=== PATIENT | male | born 1955 | race Caucasian/White ===

== ENCOUNTER → 2023-06-17 16:06 | Outpatient (CLI) | payer MEDICARE, SELFPAY ==
--- NOTE | ~2023-06-17 | XR_ITS ---
XR chest 2V DATE: 06/17/2023 16:28 INDICATION: Shortness of breath and cough for 40 days TECHNIQUE: 2 views COMPARISON: 10/29/2016 two-view chest 01/14/2017 CT chest FINDINGS: There is patchy mild infiltrate or atelectasis in the left lower lobe. The remaining lung davis appear clear. No pleural effusion or pulmonary vascular congestion or pneumothorax is detected. Normal heart size. Aortic arch calcification. IMPRESSION: Mild patchy left lower lobe infiltrate and/atelectasis Reviewed, dictated and finalized at location L.
== END ==
PROVIDERS: PCP Physician Assistant; Visit Provider Physician Assistant
DX: R06.02 Shortness of breath (principal); R05.9 Cough, unspecified; R91.8 Other nonspecific abnormal finding of lung field
CPT/HCPCS: 71046

== ENCOUNTER 2023-06-19 14:50 | Inpatient (IN) | payer MEDICARE, SELFPAY ==
--- NOTE | ~2023-06-19 | CT_ITS ---
EXAMINATION: CTA chest PE protocol DATE: 06/19/2023 22:00 INDICATION: Dyspnea. TECHNIQUE: Computed tomography angiography (CTA) of the chest was performed with 100 mL Omnipaque-350 intravenous contrast timed to evaluate the pulmonary arteries. Coronal maximum intensity projection 3D-reconstructions were created by the technologist. Automated exposure control and iterative reconst ruction technique were employed. The dose-length product was 466.50 mGy-cm. COMPARISON: Chest CT 12/2216 FINDINGS: The lungs demonstrate mild atelectasis. There is smooth septal thickening in the lungs, con sistent mild pulmonary edema. There are small pleural effusions. Cardiomegaly is noted. There is a sm all pericardial effusion. There are coronary artery calcifications. There is no pulmonary embolus. Ca lcifications at the juan of the kidneys are likely vascular. There is calcified atherosclerosis of th e aorta and many of the other arteries. There is mild thoracic spondylosis. IMPRESSION: 1. No pulmonary embolus. 2. Mild pulmonary edema. 3. Small pleural effusions. 4. Small pericardial effusion. Reviewed, dictated and finalized at location E.
--- NOTE | ~2023-06-19 | XR_ITS ---
EXAMINATION: XR chest 2V DATE: 06/19/2023 19:45 INDICATION: Dyspnea. TECHNIQUE: Frontal and lateral views of the chest were obtained. COMPARISON: Chest 2 views 04/17/2023, chest CT 01/14/2017 FINDINGS: There are mild airspace opacities in the lower lung zones. There are small pleural effusion s. No pneumothorax. The heart size is normal. IMPRESSION: 1. Stable airspace opacities in the lower lung zones, consistent with atelectasis versus pneumonia. 2. Stable small pleural effusions. Reviewed, dictated and finalized at location E. IMPRESSION: 1. Stable airspace opacities in the lower lung zones, consistent with atelectas is versus pneumonia. 2. Stable small pleural effusions.
[2023-06-19 14:53] VITALS: BP 117/82; PULSE 110; RESP 18; TEMP 36.2; O2SAT 98
--- NOTE | 2023-06-19 19:38 | ECG_ITS ---
Measurements Intervals [place] Rate: 102 P: 57 ID: 140 QRS: 248 QRSD: 125 T: 73 QT: 361 QTc: 471 Interpretive Statements SINUS TACHYCARDIA POSSIBLE LEFT ATRIAL ENLARGEMENT RIGHT AXIS DEVIATION RIGHT BUNDLE BRANCH BLOCK CANNOT RULE OUT SEPTAL INFARCT, AGE INDETERMINATE BASELINE ARTIFACT- I, II, III, AVR, AVL ABNORMAL ECG NO PREVIOUS ECG AVAILABLE FOR COMPARISON Electronically Signed On 06-20-2023 14:43:00 CDT by Kevin Key D.O.
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
[2023-06-19 20:52] LABS: Basophils Percent Auto 0.3 % (0.2-1.2); Eosinophils Absolute Auto 0.1 K/mm3 (0-0.3); Eosinophils Percent Auto 0.5 % (0-4.4); Hematocrit 46.1 % (42.0-52.0); Hemoglobin 14.5 g/dL (14.0-18.0); Immature Granulocyte Absolute 0.03 K/mm3 (0.00-0.031); Immature Granulocyte Percent A 0.3 % (0-0.5); Lymphocytes Absolute Auto 1.83 K/mm3 (0.9-3.2); Lymphocytes Percent Auto 19.1 % (18.3-44.2); Mean Corpuscular HGB Conc 31.5 g/dl (32-36); Mean Corpuscular Hemoglobin 29.9 pg (26-34); Mean Corpuscular Volume 95.1 fl (80-100); Mean Platelet Volume 11.2 fl (7.4-10.4); Monocytes Absolute Auto 0.7 K/mm3 (0.1-0.6); Monocytes Percent Auto 7.2 % (2.6-8.5); Neutrophils Absolute Auto 6.9 K/mm3 (1.3-6.7); Neutrophils Percent Auto 72.6 % (45.5-73.1); Platelet Count Result 255 k/mm3 (150-375); Red Blood Count 4.85 M/mm3 (4.6-6.20); Red Cell Distribution Width 13.9 % (11.5-14.5); White Blood Count 9.6 K/mm3 (4.5-10.0)
[2023-06-19 20:56] LABS: Influenza A QL RT-PCR Negative (Negative); Influenza B QL RT-PCR Negative (Negative); SARS-CoV-2 RNA PCR Negative (Negative)
[2023-06-19 21:03] LABS: INR 1.1; Partial Thromboplastin Time 32.1 SECONDS (22.3-36.8); Prothrombin Time 14.4 Seconds (11.1-14.7)
[2023-06-19 21:08] LABS: Appearance Urine Clear (Clear); Bacteria Urine None Seen /hpf; Bilirubin Urine Negative (Negative); Blood Urine Negative (Negative); Color Urine Dark Yellow (Yellow); Glucose Urine UA Negative (Negative); Ketones Urine Negative (Negative); Leukocyte Esterase Ur Negative LEU/UL (Negative); Mucus Urine Present /lpf; Need Manual Microscopic Reviewed; Nitrate Urine Negative (Negative); Protein Urine 1+ mg/dL (Negative); RBC Urine 0-2 /hpf (0-2); Specific Grav Ur 1.024 (1.001-1.035); Squamous Epithelial Cell Urine None seen /hpf (Few); WBC Urine 0-5 /hpf; pH Urine 5.5 (5.0-9.0)
[2023-06-19 21:10] LABS: Add Urine Microscopic? YES
[2023-06-19 21:10] LABS: D Dimer 0.53 ug/mL (<0.48)
[2023-06-19 21:34] LABS: Alanine Aminotransferase 29 U/L (6-50); Albumin Level 4.5 g/dL (3.5-5.1); Alkaline Phosphatase 93 U/L (38-126); Anion Gap 12 mmol/L (8-16); Aspartate Amino Transferase 33 U/L (17-59); Bilirubin,Total 1.1 mg/dL (0.2-1.3); Blood Urea Nitrogen 10 mg/dL (9-20); Calcium 9.8 mg/dL (8.4-10.2); Carbon Dioxide 26 mmol/L (22-30); Chloride 104 mmol/L (98-107); Estimated CRCL calculation 74 ml/min; Estimated Glomerular Filt Rate > 60; Glucose 119 mg/dL (65-110); Potassium 3.9 mmol/L (3.4-5.0); Sodium 142 mmol/L (137-145)
[2023-06-19 21:46] LABS: NT Pro B Type Natriuretic Pept 7760 pg/mL (19.9-100); Troponin I 0.032 ng/mL (0.000-0.034)
[2023-06-19] MEDS: FUROSEMIDE INJ 40 MG/4 ML VIAL IV PUSH (22:59)
[2023-06-19 23:01] VITALS: BP 106/72; PULSE 104; RESP 15; O2SAT 100
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
[2023-06-19 23:14] LABS: Troponin I 0.026 ng/mL (0.000-0.034)
[2023-06-20] VITALS (9 sets, daily range): BP systolic 103–133; BP diastolic 58–92; PULSE 85–198; RESP 16–20; TEMP 36.3–36.8; O2SAT 98–100; BMI 24.1; BMI 23.4
--- NOTE | 2023-06-20 | ECHO_ITS ---
Patient Info Name: Dre Coates Age: 67 years : 1955 Gender: Male Ht: 67 in Wt: 154 lbs BSA: 1.82 m2 HR: 104 bpm BP: 103 / 67 mmHg Heart Rhythm: Tachycardia Technical Quality: Fair Exam Date: 06/20/2023 10:10 AM Exam Location: [facility] Pulmonary Patient Status: Outpatient Admit Date: 06/19/2023 Staff Ordering Physician: Elodia Ibarra PA-C Diploma Medical Assistant: Irina Rachel RDCS Attending Provider: Yonathan Campos MD Referring Physician: Fred DUKE; Exam Type: CA echo doppler color flow Study Info Indications - new onset CHF Complete two-dimensional, color flow and Doppler transthoracic echocardiogram is performed. Summary 1. Complete two-dimensional, color flow and Doppler transthoracic echocardiogram is performed. 2. Four-chamber cardiac dilation. 3. Severe left ventricular systolic dysfunction with low ejection fraction and stigmata of low cardiac output. 4. Mild mitral regurgitation resulting from annular dilation. 5. No pericardial fluid. Left Ventricle Left ventricular chamber dimension is moderately enlarged. Left ventricular systolic function is severely reduced, estimated at 20-25%. The left ventricular diastolic function is grade I diastolic dysfunction. Right Ventricle Right ventricular chamber dimension is mildly enlarged. Right ventricular systolic function is reduced. Left Atria Left atrial chamber dimension is moderately enlarged. Right Atria Right atrial chamber dimension is moderately enlarged. Aortic Valve The aortic valve is trileaflet. There is mild aortic valve sclerosis. Pulmonic Valve The pulmonic valve is not well visualized. Mitral Valve The mitral valve has normal leaflets. There is trace mitral valve regurgitation. Tricuspid Valve The tricuspid valve leaflets are normal. Pericardium/Pleural The pericardium appears normal. Aorta The aortic root size at the sinus of Valsalva is normal. Left Ventricular Outflow Tract Name Value Normal LVOT 2D LVOT Diameter 1.9 cm LVOT Doppler LVOT Peak Gradient 2 mmHg LVOT Mean Gradient 1 mmHg LVOT VTI 11 cm LVOT VTI/AV VTI Ratio 0.7 LVOT Stroke Volume 30 ml LVOT CO 2.9 l/min LVOT CI 1.6 l/min/m2 Pulmonic Valve Name Value Normal PV Doppler PV Peak Gradient 1 mmHg Mitral Valve Name Value Normal MV Doppler MV Decel Cooper 2,007 cm/s2 MV PHT 17 ms MV Area (PHT) 13.2 cm2 4.0-5.0
--- NOTE | 2023-06-20 02:25 | ADMGEN ---
This patient, Dre Coates, was admitted to Medical Room 253-01. Patient/family oriented to hospital policies and general routines including ID bracelet, bed and alarms, visiting hours, pain management, procedures, bathroom and other care routines, personal items, smoking policy, room service/diet, and visiting hours. Information on how to activate the Rapid Response Team has been discussed. Patient/Family are encouraged to report perceived risks to care and to ask questions if they do not understand what they are told or what they should do.
[2023-06-20 05:26] LABS: Basophils Percent Auto 0.3 % (0.2-1.2); Eosinophils Absolute Auto 0.1 K/mm3 (0-0.3); Eosinophils Percent Auto 0.8 % (0-4.4); Hematocrit 39.1 % (42.0-52.0); Hemoglobin 12.6 g/dL (14.0-18.0); Immature Granulocyte Absolute 0.03 K/mm3 (0.00-0.031); Immature Granulocyte Percent A 0.4 % (0-0.5); Lymphocytes Absolute Auto 1.65 K/mm3 (0.9-3.2); Lymphocytes Percent Auto 21.2 % (18.3-44.2); Mean Corpuscular HGB Conc 32.2 g/dl (32-36); Mean Corpuscular Hemoglobin 30.1 pg (26-34); Mean Corpuscular Volume 93.3 fl (80-100); Mean Platelet Volume 10.7 fl (7.4-10.4); Monocytes Absolute Auto 0.5 K/mm3 (0.1-0.6); Monocytes Percent Auto 6.2 % (2.6-8.5); Neutrophils Absolute Auto 5.5 K/mm3 (1.3-6.7); Neutrophils Percent Auto 71.1 % (45.5-73.1); Platelet Count Result 244 k/mm3 (150-375); Red Blood Count 4.19 M/mm3 (4.6-6.20); Red Cell Distribution Width 13.6 % (11.5-14.5); White Blood Count 7.8 K/mm3 (4.5-10.0)
[2023-06-20 05:42] LABS: Anion Gap 12 mmol/L (8-16); Blood Urea Nitrogen 10 mg/dL (9-20); Calcium 9.1 mg/dL (8.4-10.2); Carbon Dioxide 28 mmol/L (22-30); Chloride 100 mmol/L (98-107); Estimated CRCL calculation 66 ml/min; Estimated Glomerular Filt Rate > 60; Glucose 187 mg/dL (65-110); Potassium 3.5 mmol/L (3.4-5.0); Sodium 140 mmol/L (137-145)
[2023-06-20] MEDS: FUROSEMIDE INJ 40 MG/4 ML VIAL IV PUSH (10:06)
[2023-06-20] MEDS: ATORVASTATIN 40 MG TABLET PO (10:07)
[2023-06-20] MEDS: lisinopriL 10 MG TABLET PO (10:07)
--- NOTE | 2023-06-20 11:46 | ECG_ITS ---
Measurements Intervals [place] Rate: 98 P: 55 OK: 143 QRS: 263 QRSD: 121 T: 80 QT: 392 QTc: 501 Interpretive Statements SINUS RHYTHM RIGHT AXIS DEVIATION RIGHT BUNDLE BRANCH BLOCK ANTEROSEPTAL INFARCT, AGE INDETERMINATE ABNORMAL ECG COMPARISON TO PRIOR ECG 06-19-23 20:53 SINUS RHYTHM NOW PRESENT Electronically Signed On 06-20-2023 14:44:05 CDT by Kevin Key D.O.
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
[2023-06-20 12:40] LABS: Glucose Point of Care 174 mg/dl (65-105)
[2023-06-20] MEDS: METOPROLOL SUCCINATE EXT REL 25 MG TABCR PO (13:28)
--- NOTE | 2023-06-20 14:08 | PM.IMPN ---
Progress Note: A&P Assessment and Plan (1) New onset of congestive heart failure: Code(s): I50.9 - Heart failure, unspecified Status: Acute Assessment and Plan: Patient has signs and symptoms consistent with new onset CHF Patient had a CTA chest done today which confirmed fluid overloaded and ruled out pneumonia Oxygen via nasal cannula as needed to keep O2 sats around 94% BNP 7760 Lasix 40 mg IV daily Strict I and OS Daily weights Echocardiogram revealing severe left ventricular systolic dysfunction with low ejection fraction estimated of 20 25% Cardiology evaluation consulted for further evaluation and treatment recommendations (2) Diabetes mellitus: Code(s): E11.9 - Type 2 diabetes mellitus without complications Status: Acute Assessment and Plan: Insulin Lispro sliding scale, Accu-checks qAc and HS SSI Initiate hypoglycemic precautions HgbA1c order (3) Hyperlipidemia: Code(s): E78.5 - Hyperlipidemia, unspecified Status: Acute Assessment and Plan: Continue atorvastatin (4) Hypertension: Code(s): I10 - Essential (primary) hypertension Status: Acute Assessment and Plan: Lisinopril DC by Cardiology in anticipation of starting Entresto. Subjective Date/time seen: 06/20/23 14:08 Interval history: Patient states that his shortness of breath has improved. He has been urinating a lot since being started on Lasix. He states that he has been short of breath, coughing and had lower extremity edema for approximately 1 month. He had been treated for pneumonia 2 different times during this period. He states that it he also had orthopnea and dyspnea with exertion. He has no known heart disease, no history of an AK or stroke. Does take p.o. diabetic medication as well as hypertensive and hyperlipidemic medication. He denies any chest pain, sputum production, fever, nausea or vomiting. Being worked up for new onset CHF. Exam Narrative: GENERAL: Comfortable, no acute distress HENMT: moist mucous membranes EYES: EOM intact b/l NECK: no lymphadenopathy RESPIRATORY: Mild respiratory crackles CARDIO: RRR GI: soft, nontender, bowel sounds present SKIN: no rashes EXTREMITIES: 2+ pedal edema, no redness or tenderness Objective Data Vital Signs Vital Signs: Vital Signs - 24 hr 06/19/23 14:53 06/19/23 23:01 06/20/23 02:36 Temperature 97.1 F L 97.3 F L Pulse Rate 110 H 104 H 113 H Respiratory Rate 18 15 16 Blood Pressure 117/82 106/72 133/92 H Pulse Oximetry 98 100 100 Oxygen Delivery Room Air 06/20/23 02:26 06/20/23 04:00 06/20/23 04:00 Temperature 98.3 F Pulse Rate 96 104 H Respiratory Rate 18 Blood Pressure 103/67 Pulse Oximetry 98 Oxygen Delivery Room Air 06/20/23 10:00 06/20/23 10:00 06/20/23 08:00 Temperature 98.2 F Pulse Rate 97 198 H Respiratory Rate 18 Blood Pressure 104/67 Pulse Oximetry 99 Oxygen Delivery Room Air 06/20/23 12:00 06/20/23 13:28 Temperature Pulse Rate 105 H 102 H Respiratory Rate Blood Pressure Pulse Oximetry Oxygen Delivery Intake/Output Intake/Output: Intake & Output 06/17/23 06/18/23 06/19/23 06/20/23 23:59 23:59 23:59 23:59 Intake Total 600 Balance 600 Meds/Results Medications: Active Medications Generic Name Dose Route Start Last Admin Trade Name Aashishq PRN Reason Stop Dose Admin Acetaminophen 650 mg 06/20/23 01:49 Acetaminophen 325 Mg Tablet PO Q4H PRN Mild Pain (1-3) or Fever Atorvastatin Calcium 40 mg 06/20/23 09:00 06/20/23 10:07 Atorvastatin 40 Mg Tablet PO 40 mg DAILY BEBA Administration Escitalopram Oxalate 10 mg 06/20/23 21:00 Escitalopram Oxalate 10 Mg Tablet PO [facility] Furosemide 40 mg 06/20/23 09:00 06/20/23 10:06 Furosemide Inj 40 Mg/4 Ml Vial IV PUSH 40 mg DAILY BEBA Administration Metoprolol Succinate 25 mg 06/20/23 12:45 06/20/23
[2023-06-20 17:19] LABS: Glucose Point of Care 126 mg/dl (65-105)
[2023-06-20] MEDS: traZODone HCL 50 MG TABLET PO (20:48)
[2023-06-20] MEDS: ESCITALOPRAM OXALATE 10 MG TABLET PO (20:48)
[2023-06-21] VITALS (14 sets, daily range): BP systolic 76–98; BP diastolic 41–72; PULSE 73–95; RESP 16–20; TEMP 36.5–36.7; O2SAT 96–100
[2023-06-21 06:47] LABS: Basophils Percent Auto 0.2 % (0.2-1.2); Eosinophils Absolute Auto 0.2 K/mm3 (0-0.3); Hematocrit 42.3 % (42.0-52.0); Hemoglobin 13.8 g/dL (14.0-18.0); Immature Granulocyte Absolute 0.02 K/mm3 (0.00-0.031); Immature Granulocyte Percent A 0.2 % (0-0.5); Lymphocytes Absolute Auto 3.05 K/mm3 (0.9-3.2); Lymphocytes Percent Auto 37.8 % (18.3-44.2); Mean Corpuscular HGB Conc 32.6 g/dl (32-36); Mean Corpuscular Hemoglobin 30.6 pg (26-34); Mean Corpuscular Volume 93.8 fl (80-100); Mean Platelet Volume 10.7 fl (7.4-10.4); Monocytes Absolute Auto 0.6 K/mm3 (0.1-0.6); Monocytes Percent Auto 7.7 % (2.6-8.5); Neutrophils Absolute Auto 4.2 K/mm3 (1.3-6.7); Neutrophils Percent Auto 52.1 % (45.5-73.1); Platelet Count Result 264 k/mm3 (150-375); Red Blood Count 4.51 M/mm3 (4.6-6.20); Red Cell Distribution Width 13.4 % (11.5-14.5); White Blood Count 8.1 K/mm3 (4.5-10.0)
[2023-06-21 07:00] LABS: Anion Gap 8 mmol/L (8-16); Blood Urea Nitrogen 11 mg/dL (9-20); Carbon Dioxide 29 mmol/L (22-30); Chloride 101 mmol/L (98-107); Estimated CRCL calculation 66 ml/min; Estimated Glomerular Filt Rate > 60; Glucose 107 mg/dL (65-110); Magnesium 2.3 mg/dL (1.6-2.3); Phosphorus 4.3 mg/dL (2.5-4.5); Potassium 3.7 mmol/L (3.4-5.0); Sodium 138 mmol/L (137-145)
[2023-06-21 07:33] LABS: Hemoglobin A1C 7.3 % (<5.7)
[2023-06-21] MEDS: ATORVASTATIN 40 MG TABLET PO (09:22)
--- NOTE | 2023-06-21 10:28 | PM.PNCARD ---
Progress Note: A&P Assessment and Plan (1) New onset of congestive heart failure: Code(s): I50.9 - Heart failure, unspecified Status: Acute Plan 67-year-old man with Newly diagnosed congestive heart failure patient has a relatively severe cardiomyopathy according to the echocardiographic findings. He is no longer volume overloaded but is asymptomatically hypotensive today. Will stop intravenous furosemide for this reason. Will continue low-dose metoprolol with spironolactone. Of Hope blood pressure will rebound and can not start ARNI tomorrow. Patient has been given appropriate instructions by the staff not to get up without assistance so he does not have a fall/injury given his current low blood pressure. He will drink some extra fluid today as well. Once he is medically optimized he will need to undergo coronary angiography to rule out an ischemic basis for this myopathy. Spent some time explaining this to the patient today, he is agreeable Mt Baires MD [facility] Subjective Date/time seen: Date of service: 06/21/23 10:28 Interval history: Follow-up visit in this 67-year-old man with: New onset congestive heart failure. Patient has longstanding diabetes and dyslipidemia. Echocardiogram yesterday unfortunately demonstrates evidence of severely depressed LV systolic dysfunction and low ejection fraction with stigmata of low cardiac output. Despite this he feels well today and describes no shortness of breath he is very happy with the results of his diuresis he is no longer edematous and no longer feeling any dyspnea. Systolic blood pressure this morning is low but he is asymptomatic with this. Exam Const: General: comfortable and no acute distress Eyes: Sclera: sclerae normal Neck: Neck: supple and no JVD Resp: Effort & Inspection: normal respiratory effort Auscultation: clear to auscultation bilaterally Cardio: Rate: regular rate Rhythm: regular rhythm Other: No murmur, S3 is still audible GI: GI Palp: Yes Soft to palpation Auscultation: normal bowel sounds Skin: General skin exam: normal color Neuro: Other: Alert and oriented x3 Extrem: Other: No edema, warm and well perfused Objective Data Vital Signs Vital Signs: Vital Signs - 24 hr 06/20/23 12:00 06/20/23 13:28 06/20/23 18:00 Temperature 36.6 C Pulse Rate 105 H 102 H 98 Respiratory Rate 18 Blood Pressure 108/58 L Pulse Oximetry 99 Oxygen Delivery 06/20/23 20:40 06/21/23 00:43 06/20/23 20:00 Temperature 36.8 C 36.7 C Pulse Rate 92 80 Respiratory Rate 20 20 Blood Pressure 105/75 98/58 L Pulse Oximetry 100 100 Oxygen Delivery Room Air 06/21/23 05:41 06/20/23 20:00 06/21/23 00:00 Temperature 36.6 C Pulse Rate 83 85 82 Respiratory Rate 18 Blood Pressure 76/41 L Pulse Oximetry 96 Oxygen Delivery 06/21/23 04:00 Temperature Pulse Rate 78 Respiratory Rate Blood Pressure Pulse Oximetry Oxygen Delivery Intake/Output Intake/Output: Intake & Output 06/18/23 06/19/23 06/20/23 06/21/23 23:59 23:59 23:59 23:59 Intake Total 1340 630 Balance 1340 630 Meds/Results Medications: Active Medications Generic Name Dose Route Start Last Admin Trade Name Freq PRN Reason Stop Dose Admin Acetaminophen 650 mg 06/20/23 01:49 Acetaminophen 325 Mg Tablet PO Q4H PRN Mild Pain (1-3) or Fever Atorvastatin Calcium 40 mg 06/20/23 09:00 06/21/23 09:22 Atorvastatin 40 Mg Tablet PO 40 mg DAILY BEBA Administration Dextrose 12.5 gm 06/20/23 14:28 Dextrose 50% 25 Gm/50 Ml Syringe IV PUSH PRN PRN Hypoglycemia Protocol Escitalopram Oxalate 10 mg 06/20/23 21:00 06/20/23 20:48 Escitalopram Oxalate 10 Mg Tablet PO 10 mg HS BEBA Administration Glucagon 1 mg 06/20/23 14:28 Glucagon For Inj 1 Mg Vial IM PRN PRN Hypoglycemia Protocol Glucose 15 gm 06/20/23 14:28 Glucose
[2023-06-21 12:21] LABS: Glucose Point of Care 108 mg/dl (65-105)
--- NOTE | 2023-06-21 13:01 | PM.IMPN ---
Progress Note: A&P Assessment and Plan (1) New onset of congestive heart failure: Code(s): I50.9 - Heart failure, unspecified Status: Acute Assessment and Plan: Patient has signs and symptoms consistent with new onset CHF Patient had a CTA chest done today which confirmed fluid overloaded and ruled out pneumonia Oxygen via nasal cannula as needed to keep O2 sats around 94% BNP 7760 Strict I and OS Daily weights Echocardiogram revealing severe left ventricular systolic dysfunction with low ejection fraction estimated of 20 25% Cardiology evaluation consulted for further evaluation and treatment recommendations Start metoprolol and spironolactone and discontinue lisinopril (2) Diabetes mellitus: Code(s): E11.9 - Type 2 diabetes mellitus without complications Status: Acute Assessment and Plan: Insulin Lispro sliding scale, Accu-checks qAc and HS SSI Initiate hypoglycemic precautions HgbA1c order (3) Hyperlipidemia: Code(s): E78.5 - Hyperlipidemia, unspecified Status: Acute Assessment and Plan: Continue atorvastatin (4) Hypertension: Code(s): I10 - Essential (primary) hypertension Status: Acute Assessment and Plan: Lisinopril DC by Cardiology in anticipation of starting Entresto. Subjective Date/time seen: 06/21/23 13:01 Interval history: Patient doing well today. He states that he is no longer coughing, no longer short of breath in his pedal edema has improved. Patient is experiencing some hypotension today although he is asymptomatic. Cardiology plans on performing coronary angiography to rule out an ischemic basis for his myopathy once patient's pressures have stabilized. He is doing well with no complaints at this time. Spironolactone and metoprolol we were added to his medication regimen while lisinopril was discontinued. Lasix discontinued due to edema being resolved and patient's hypotension. Exam Narrative: GENERAL: Comfortable, no acute distress HENMT: moist mucous membranes EYES: EOM intact b/l NECK: no lymphadenopathy RESPIRATORY: Clear to auscultation CARDIO: RRR GI: soft, nontender, bowel sounds present SKIN: no rashes EXTREMITIES: No l edema, no redness or tenderness Objective Data Vital Signs Vital Signs: Vital Signs - 24 hr 06/20/23 13:28 06/20/23 18:00 06/20/23 20:40 Temperature 98 F 98.3 F Pulse Rate 102 H 98 92 Respiratory Rate 18 20 Blood Pressure 108/58 L 105/75 Pulse Oximetry 99 100 Oxygen Delivery 06/21/23 00:43 06/20/23 20:00 06/21/23 05:41 Temperature 98.0 F 97.9 F Pulse Rate 80 83 Respiratory Rate 20 18 Blood Pressure 98/58 L 76/41 L Pulse Oximetry 100 96 Oxygen Delivery Room Air 06/20/23 20:00 06/21/23 00:00 06/21/23 04:00 Temperature Pulse Rate 85 82 78 Respiratory Rate Blood Pressure Pulse Oximetry Oxygen Delivery Intake/Output Intake/Output: Intake & Output 06/18/23 06/19/23 06/20/23 06/21/23 23:59 23:59 23:59 23:59 Intake Total 1340 630 Balance 1340 630 Meds/Results Medications: Active Medications Generic Name Dose Route Start Last Admin Trade Name Freq PRN Reason Stop Dose Admin Acetaminophen 650 mg 06/20/23 01:49 Acetaminophen 325 Mg Tablet PO Q4H PRN Mild Pain (1-3) or Fever Atorvastatin Calcium 40 mg 06/20/23 09:00 06/21/23 09:22 Atorvastatin 40 Mg Tablet PO 40 mg DAILY BEBA Administration Dextrose 12.5 gm 06/20/23 14:28 Dextrose 50% 25 Gm/50 Ml Syringe IV PUSH PRN PRN Hypoglycemia Protocol Escitalopram Oxalate 10 mg 06/20/23 21:00 06/20/23 20:48 Escitalopram Oxalate 10 Mg Tablet PO 10 mg HS BEBA Administration Glucagon 1 mg 06/20/23 14:28 Glucagon For Inj 1 Mg Vial IM PRN PRN Hypoglycemia Protocol Glucose 15 gm 06/20/23 14:28 Glucose Oral Gel 15 Gm Of Glucse In 37.5 Gm Tube PO PRN PRN Hypog
[2023-06-21] MEDS: traZODone HCL 50 MG TABLET PO (20:57)
[2023-06-21] MEDS: ESCITALOPRAM OXALATE 10 MG TABLET PO (20:57)
[2023-06-22] VITALS (14 sets, daily range): BP systolic 86–102; BP diastolic 55–70; PULSE 84–98; RESP 16–18; TEMP 36.3–36.9; O2SAT 97–100
[2023-06-22 06:28] LABS: Basophils Percent Auto 0.1 % (0.2-1.2); Eosinophils Absolute Auto 0.2 K/mm3 (0-0.3); Eosinophils Percent Auto 2.1 % (0-4.4); Hematocrit 41.6 % (42.0-52.0); Hemoglobin 13.1 g/dL (14.0-18.0); Immature Granulocyte Absolute 0.02 K/mm3 (0.00-0.031); Immature Granulocyte Percent A 0.3 % (0-0.5); Lymphocytes Absolute Auto 2.73 K/mm3 (0.9-3.2); Mean Corpuscular HGB Conc 31.5 g/dl (32-36); Mean Corpuscular Volume 95.4 fl (80-100); Mean Platelet Volume 10.6 fl (7.4-10.4); Monocytes Absolute Auto 0.6 K/mm3 (0.1-0.6); Monocytes Percent Auto 8.2 % (2.6-8.5); Neutrophils Absolute Auto 3.7 K/mm3 (1.3-6.7); Neutrophils Percent Auto 51.3 % (45.5-73.1); Platelet Count Result 241 k/mm3 (150-375); Red Blood Count 4.36 M/mm3 (4.6-6.20); Red Cell Distribution Width 13.6 % (11.5-14.5); White Blood Count 7.2 K/mm3 (4.5-10.0)
[2023-06-22 06:39] LABS: Sodium 139 mmol/L (137-145)
[2023-06-22 06:40] LABS: Anion Gap 7 mmol/L (8-16); Blood Urea Nitrogen 13 mg/dL (9-20); Carbon Dioxide 30 mmol/L (22-30); Chloride 102 mmol/L (98-107); Estimated CRCL calculation 66 ml/min; Estimated Glomerular Filt Rate > 60; Glucose 115 mg/dL (65-110); Potassium 4.2 mmol/L (3.4-5.0)
[2023-06-22] MEDS: METOPROLOL SUCCINATE EXT REL 25 MG TABCR PO (08:23)
[2023-06-22] MEDS: ATORVASTATIN 40 MG TABLET PO (08:23)
[2023-06-22] MEDS: SPIRONOLACTONE 25 MG TABLET PO (08:23)
[2023-06-22 08:25] LABS: Glucose Point of Care 142 mg/dl (65-105)
--- NOTE | 2023-06-22 11:10 | PM.PNCARD ---
Progress Note: A&P Assessment and Plan (1) New onset of congestive heart failure: Code(s): I50.9 - Heart failure, unspecified Status: Acute Plan 67-year-old man with longstanding diabetes and dyslipidemia presents with congestive heart failure and profound left ventricular systolic dysfunction. He will start today on modest dose of Entresto hopefully he will tolerate this hemodynamically without becoming unacceptably hypotensive. Continue low-dose metoprolol as well as spironolactone. Plan is for left heart catheterization at a later date once he is hemodynamically stable and on appropriate guideline directed medical therapy. Mt Baires MD [facility] Subjective Date/time seen: Date of service: 06/22/23 11:10 Interval history: Follow-up visit in this 67-year-old man with: New onset congestive heart failure. Patient has longstanding diabetes and dyslipidemia. Echocardiogram yesterday unfortunately demonstrates evidence of severely depressed LV systolic dysfunction and low ejection fraction with stigmata of low cardiac output. Despite this he feels well today and describes no shortness of breath he is very happy with the results of his diuresis he is no longer edematous and no longer feeling any dyspnea. Systolic blood pressure this morning is low but he is asymptomatic with this. 06/22/2023: Patient continues to feel well he is asymptomatic no shortness of breath or lightheadedness. Blood pressure has rebounded some following discontinuance of furosemide. He is not having any lightheadedness with ambulating in the room. Exam Const: General: comfortable and no acute distress Other: Pleasant cooperative gentleman appearing about his stated age short statured not in any distress at this time HENMT: Mouth: Yes moist mucous membranes Eyes: Sclera: sclerae normal Neck: Neck: supple and no JVD Other: Carotid pulses are intact bilat Resp: Effort & Inspection: normal respiratory effort Auscultation: clear to auscultation bilaterally Other: Scant crackles at the bases bilaterally no wheezing no rhonchi Cardio: Rate: regular rate and tachycardic Rhythm: regular rhythm Heart sounds: Gallop heart sound present S3 gallop Other: No murmur, S3 is still audible GI: Auscultation: normal bowel sounds Skin: General skin exam: normal color Neuro: Other: Alert and oriented x3 Extrem: Other: No edema, warm and well perfused Objective Data Vital Signs Vital Signs: Vital Signs - 24 hr 06/21/23 14:49 06/21/23 14:00 06/21/23 11:56 Temperature 36.6 C Pulse Rate 88 86 Respiratory Rate 16 Blood Pressure 98/62 L Pulse Oximetry 98 Oxygen Delivery 06/21/23 16:04 06/21/23 18:00 06/21/23 20:57 Temperature 36.6 C 36.5 C Pulse Rate 95 93 92 Respiratory Rate 16 16 Blood Pressure 98/52 L 95/72 L Pulse Oximetry 98 99 Oxygen Delivery 06/21/23 20:00 06/21/23 20:00 06/22/23 00:00 Temperature Pulse Rate 93 89 Respiratory Rate Blood Pressure Pulse Oximetry Oxygen Delivery Room Air 06/22/23 04:00 06/22/23 06:39 06/22/23 08:23 Temperature 36.6 C Pulse Rate 84 89 89 Respiratory Rate 16 Blood Pressure 102/69 Pulse Oximetry 99 Oxygen Delivery 06/22/23 08:24 Temperature Pulse Rate 89 Respiratory Rate Blood Pressure 90/68 L Pulse Oximetry Oxygen Delivery Intake/Output Intake/Output: Intake & Output 06/19/23 06/20/23 06/21/23 06/22/23 23:59 23:59 23:59 23:59 Intake Total 1340 1530 780 Balance 1340 1530 780 Meds/Results Medications: Active Medications Generic Name Dose Route Start Last Admin Trade Name Freq PRN Reason Stop Dose Admin Acetaminophen 650 mg 06/20/23 01:49 Acetaminophen 325 Mg Tablet PO Q4H PRN Mild Pain (1-3) or Fever Atorvastatin Calcium 40 mg 06/20/23 09:00 06/22/23 08:23 Atorvastatin 40 Mg Tablet PO 40 mg DAILY BEBA Administration Dextro
[2023-06-22 12:09] LABS: Glucose Point of Care 155 mg/dl (65-105)
[2023-06-22] MEDS: SACUBITRIL/VALSARTAN 12-13 MG TABLET 1 TAB PO ×2 (12:13→20:46)
--- NOTE | 2023-06-22 13:15 | PM.IMPN ---
Progress Note: A&P Assessment and Plan (1) New onset of congestive heart failure: Code(s): I50.9 - Heart failure, unspecified Status: Acute Assessment and Plan: Patient has signs and symptoms consistent with new onset CHF Patient had a CTA chest done today which confirmed fluid overloaded and ruled out pneumonia Oxygen via nasal cannula as needed to keep O2 sats around 94% BNP 7760 Strict I and OS Daily weights Echocardiogram revealing severe left ventricular systolic dysfunction with low ejection fraction estimated of 20 25% Cardiology evaluation consulted for further evaluation and treatment recommendations Start metoprolol and spironolactone and discontinue lisinopril Patient started on low-dose Entresto today (2) Diabetes mellitus: Code(s): E11.9 - Type 2 diabetes mellitus without complications Status: Acute Assessment and Plan: Insulin Lispro sliding scale, Accu-checks qAc and HS SSI Initiate hypoglycemic precautions HgbA1c order (3) Hyperlipidemia: Code(s): E78.5 - Hyperlipidemia, unspecified Status: Acute Assessment and Plan: Continue atorvastatin (4) Hypertension: Code(s): I10 - Essential (primary) hypertension Status: Acute Assessment and Plan: Lisinopril DC by Cardiology in anticipation of starting Entresto. Subjective Date/time seen: 06/22/23 13:15 Interval history: Patient doing well today with no new complaints at this time. He continues to have somewhat low blood pressure. He is not symptomatic at this time. Follow along with Cardiology. Patient can discharge once he is cleared to discharge from a cardiology standpoint. Exam Narrative: GENERAL: Comfortable, no acute distress HENMT: moist mucous membranes EYES: EOM intact b/l NECK: no lymphadenopathy RESPIRATORY: Clear to auscultation CARDIO: RRR GI: soft, nontender, bowel sounds present SKIN: no rashes EXTREMITIES: No l edema, no redness or tenderness Objective Data Vital Signs Vital Signs: Vital Signs - 24 hr 06/21/23 14:49 06/21/23 14:00 06/21/23 16:04 Temperature 97.8 F Pulse Rate 88 95 Respiratory Rate 16 Blood Pressure 98/62 L Pulse Oximetry 98 Oxygen Delivery 06/21/23 18:00 06/21/23 20:57 06/21/23 20:00 Temperature 97.8 F 97.7 F Pulse Rate 93 92 Respiratory Rate 16 16 Blood Pressure 98/52 L 95/72 L Pulse Oximetry 98 99 Oxygen Delivery Room Air 06/21/23 20:00 06/22/23 00:00 06/22/23 04:00 Temperature Pulse Rate 93 89 84 Respiratory Rate Blood Pressure Pulse Oximetry Oxygen Delivery 06/22/23 06:39 06/22/23 08:23 06/22/23 08:24 Temperature 97.8 F Pulse Rate 89 89 89 Respiratory Rate 16 Blood Pressure 102/69 90/68 L Pulse Oximetry 99 Oxygen Delivery 06/22/23 10:00 Temperature 97.7 F Pulse Rate 88 Respiratory Rate 16 Blood Pressure 92/63 L Pulse Oximetry 100 Oxygen Delivery Intake/Output Intake/Output: Intake & Output 06/19/23 06/20/23 06/21/23 06/22/23 23:59 23:59 23:59 23:59 Intake Total 1340 1530 780 Balance 1340 1530 780 Meds/Results Medications: Active Medications Generic Name Dose Route Start Last Admin Trade Name Freq PRN Reason Stop Dose Admin Acetaminophen 650 mg 06/20/23 01:49 Acetaminophen 325 Mg Tablet PO Q4H PRN Mild Pain (1-3) or Fever Atorvastatin Calcium 40 mg 06/20/23 09:00 06/22/23 08:23 Atorvastatin 40 Mg Tablet PO 40 mg DAILY BEBA Administration Dextrose 12.5 gm 06/20/23 14:28 Dextrose 50% 25 Gm/50 Ml Syringe IV PUSH PRN PRN Hypoglycemia Protocol Escitalopram Oxalate 10 mg 06/20/23 21:00 06/21/23 20:57 Escitalopram Oxalate 10 Mg Tablet PO 10 mg HS BEBA Administration Glucagon 1 mg 06/20/23 14:28 Glucagon For Inj 1 Mg Vial IM PRN PRN Hypoglycemia Protocol Glucose 15 gm 06/20/23 14:28 Glucose Oral Gel 15 Gm Of Gluc
[2023-06-22 17:34] LABS: Glucose Point of Care 159 mg/dl (65-105)
[2023-06-22 19:53] LABS: Glucose Point of Care 209 mg/dl (65-105)
[2023-06-22] MEDS: traZODone HCL 50 MG TABLET PO (20:46)
[2023-06-22] MEDS: ESCITALOPRAM OXALATE 10 MG TABLET PO (20:46)
[2023-06-23] VITALS (8 sets, daily range): BP systolic 89–100; BP diastolic 54–78; PULSE 71–93; RESP 14–18; TEMP 36.2–36.4; O2SAT 98–100
[2023-06-23 05:52] LABS: Basophils Percent Auto 0.2 % (0.2-1.2); Eosinophils Absolute Auto 0.2 K/mm3 (0-0.3); Eosinophils Percent Auto 1.7 % (0-4.4); Hematocrit 47.2 % (42.0-52.0); Hemoglobin 14.8 g/dL (14.0-18.0); Immature Granulocyte Absolute 0.02 K/mm3 (0.00-0.031); Immature Granulocyte Percent A 0.2 % (0-0.5); Lymphocytes Absolute Auto 3.12 K/mm3 (0.9-3.2); Lymphocytes Percent Auto 35.8 % (18.3-44.2); Mean Corpuscular HGB Conc 31.4 g/dl (32-36); Mean Corpuscular Hemoglobin 29.7 pg (26-34); Mean Corpuscular Volume 94.6 fl (80-100); Mean Platelet Volume 10.5 fl (7.4-10.4); Monocytes Absolute Auto 0.7 K/mm3 (0.1-0.6); Monocytes Percent Auto 7.8 % (2.6-8.5); Neutrophils Absolute Auto 4.7 K/mm3 (1.3-6.7); Neutrophils Percent Auto 54.3 % (45.5-73.1); Platelet Count Result 280 k/mm3 (150-375); Red Blood Count 4.99 M/mm3 (4.6-6.20); Red Cell Distribution Width 13.6 % (11.5-14.5); White Blood Count 8.7 K/mm3 (4.5-10.0)
[2023-06-23 05:58] LABS: Anion Gap 8 mmol/L (8-16); Blood Urea Nitrogen 16 mg/dL (9-20); Calcium 9.5 mg/dL (8.4-10.2); Carbon Dioxide 29 mmol/L (22-30); Chloride 102 mmol/L (98-107); Estimated CRCL calculation 66 ml/min; Estimated Glomerular Filt Rate > 60; Glucose 124 mg/dL (65-110); Potassium 4.2 mmol/L (3.4-5.0); Sodium 139 mmol/L (137-145)
[2023-06-23 06:06] LABS: NT Pro B Type Natriuretic Pept 4720 pg/mL (19.9-100)
[2023-06-23 08:40] LABS: Glucose Point of Care 152 mg/dl (65-105)
[2023-06-23] MEDS: SPIRONOLACTONE 25 MG TABLET PO (09:45)
[2023-06-23] MEDS: ATORVASTATIN 40 MG TABLET PO (09:45)
[2023-06-23] MEDS: SACUBITRIL/VALSARTAN 12-13 MG TABLET 1 TAB PO (09:45)
[2023-06-23] MEDS: METOPROLOL SUCCINATE EXT REL 25 MG TABCR PO (09:46)
--- NOTE | 2023-06-23 11:06 | PM.PNCARD ---
Progress Note: A&P Assessment and Plan (1) New onset of congestive heart failure: Code(s): I50.9 - Heart failure, unspecified Status: Acute Plan 67-year-old man with systolic heart failure, new diagnosis. He is now on guideline directed medical therapy and appears to be stable for discharge. I will see him in the office in the next 2-3 weeks for follow-up and anticipate arranging for outpatient left heart catheterization to finish his cardiomyopathy workup. He should stay on current medication regimen which includes low doses of metoprolol Entresto as well as spironolactone. He should have a follow-up BMP in about 1 week Mt Baires MD [facility] Subjective Date/time seen: Service: 06/23/23 11:06 Interval history: Follow-up visit in this 67-year-old man with: Newly diagnosed systolic heart failure started on guideline directed medical therapy and is having a good response. Feels well today started on modest dose of Entresto yesterday a blood pressure has not declined significantly since yesterday. No longer short of breath no longer has any lower extremity edema Exam Const: General: comfortable and no acute distress HENMT: Mouth: Yes moist mucous membranes Eyes: Sclera: sclerae normal Neck: Neck: supple and no JVD Resp: Effort & Inspection: normal respiratory effort Auscultation: clear to auscultation bilaterally Other: No pulmonary rales persist Cardio: Rate: regular rate Rhythm: regular rhythm Other: PMI is laterally displaced no murmur no gallop GI: GI Palp: Yes Soft to palpation Auscultation: normal bowel sounds Skin: General skin exam: normal color Neuro: Other: Alert and oriented x3 Extrem: Other: Warm and well perfused, no significant edema Objective Data Vital Signs Vital Signs: Vital Signs - 24 hr 06/22/23 14:00 06/22/23 14:46 06/22/23 12:01 Temperature 36.7 C Pulse Rate 92 98 Respiratory Rate 16 Blood Pressure 86/55 L 92/70 L Pulse Oximetry 100 Oxygen Delivery 06/22/23 16:03 06/22/23 18:45 06/22/23 21:45 Temperature 36.9 C 36.3 C L Pulse Rate 84 97 88 Respiratory Rate 16 18 Blood Pressure 90/68 L 93/59 L Pulse Oximetry 100 97 Oxygen Delivery 06/22/23 20:00 06/23/23 05:36 06/22/23 20:00 Temperature 36.4 C Pulse Rate 79 89 Respiratory Rate 18 Blood Pressure 93/54 L Pulse Oximetry 98 Oxygen Delivery Room Air 06/23/23 00:00 06/23/23 04:00 06/23/23 08:00 Temperature Pulse Rate 86 71 79 Respiratory Rate Blood Pressure Pulse Oximetry Oxygen Delivery 06/23/23 09:41 06/23/23 09:46 Temperature 36.2 C L Pulse Rate 84 84 Respiratory Rate 14 Blood Pressure 100/78 Pulse Oximetry 100 Oxygen Delivery Intake/Output Intake/Output: Intake & Output 06/20/23 06/21/23 06/22/23 06/23/23 23:59 23:59 23:59 23:59 Intake Total 1340 1530 2210 870 Balance 1340 1530 2210 870 Meds/Results Medications: Active Medications Generic Name Dose Route Start Last Admin Trade Name Freq PRN Reason Stop Dose Admin Acetaminophen 650 mg 06/20/23 01:49 Acetaminophen 325 Mg Tablet PO Q4H PRN Mild Pain (1-3) or Fever Atorvastatin Calcium 40 mg 06/20/23 09:00 06/23/23 09:45 Atorvastatin 40 Mg Tablet PO 40 mg DAILY BEBA Administration Dextrose 12.5 gm 06/20/23 14:28 Dextrose 50% 25 Gm/50 Ml Syringe IV PUSH PRN PRN Hypoglycemia Protocol Escitalopram Oxalate 10 mg 06/20/23 21:00 06/22/23 20:46 Escitalopram Oxalate 10 Mg Tablet PO 10 mg HS BEBA Administration Glucagon 1 mg 06/20/23 14:28 Glucagon For Inj 1 Mg Vial IM PRN PRN Hypoglycemia Protocol Glucose 15 gm 06/20/23 14:28 Glucose Oral Gel 15 Gm Of Glucse In 37.5 Gm Tube PO PRN PRN Hypoglycemia Protocol Dextrose 1,000 mls @ 100 mls/hr 06/20/23 14:28 Dextrose 5% 1,000 Ml IVPB PRN PRN Hypoglycemia Protocol
[2023-06-23 12:13] LABS: Glucose Point of Care 161 mg/dl (65-105)
--- NOTE | 2023-06-23 12:59 | PM.DS ---
DS: Admitting Diagnosis Discharge Date 06/23/23 Admitting Diagnosis New CHF DS: Discharge Diagnosis Discharge Diagnosis (1) New onset of congestive heart failure: Code(s): I50.9 - Heart failure, unspecified Status: Acute (2) Diabetes mellitus: Code(s): E11.9 - Type 2 diabetes mellitus without complications Status: Acute (3) Hyperlipidemia: Code(s): E78.5 - Hyperlipidemia, unspecified Status: Acute (4) Hypertension: Code(s): I10 - Essential (primary) hypertension Status: Acute DS: Summary Hospital Course Hospital Course: This is a 67-year-old male with a past medical history of hypertension and hyperlipidemia the presented to the ED on 06/19/2023 due to worsening shortness of breath, cough and lower extremity edema. He was given antibiotics for possible pneumonia by his primary care provider. His primary care provider milton some labs and found a BNP of 6000 and he was advised to be seen in the ED. Repeat BNP was 7760. He was started on IV Lasix and Cardiology was consulted. Echocardiogram for feeling severe left ventricular systolic dysfunction with an EF of 20-25%. Cardiology stopped his current hypertension medications of lisinopril 10 mg daily and initiated spironolactone and metoprolol. Cardiology also initiated Entresto. Patient did experience some low blood pressure although was asymptomatic. Patient's blood pressure remained low during his hospital stay although it was stable. Cardiology okayed patient for discharge on Entresto, spironolactone and metoprolol for a follow-up in their office in 2-3 weeks. Will order a BMP to be done in 1 week. Patient going to undergo outpatient left heart catheterization likely in a couple weeks. Labs and vital signs are stable and he is medically cleared for discharge at this time. Time Spent with Patient Time attestation: Total time spent providing and/or coordinating discharge services: Exam Narrative: GENERAL: Comfortable, no acute distress HENMT: moist mucous membranes EYES: EOM intact b/l NECK: no lymphadenopathy RESPIRATORY: Clear to auscultation CARDIO: RRR GI: soft, nontender, bowel sounds present SKIN: no rashes EXTREMITIES: No edema, no redness or tenderness DS: Data Data Completed and Pending Labs on day of discharge: Labs from last 24 hours 06/23/23 06/23/23 06/23/23 11:57 08:19 05:30 WBC 8.7 RBC 4.99 Hgb 14.8 Hct 47.2 MCV 94.6 MCH 29.7 MCHC 31.4 L RDW 13.6 Plt Count 280 MPV 10.5 H Immature Gran % (Auto) 0.2 Neut % (Auto) 54.3 Lymph % (Auto) 35.8 [place] % (Auto) 7.8 Eos % (Auto) 1.7 Baso % (Auto) 0.2 Lymph # (Auto) 3.12 [place] # (Auto) 0.7 H Eos # (Auto) 0.2 Baso # (Auto) 0.0 Abs Immat Gran (auto) 0.02 Absolute Neuts (auto) 4.7 Absolute Nucleated RBC 0.0 Nucleated RBC % 0.0 Sodium 139 Potassium 4.2 Chloride 102 Carbon Dioxide 29 Anion Gap 8 BUN 16 Creatinine 0.90 Estim Creat Clear Calc 66 Estimated GFR > 60 Glucose 124 H POC Capillary Glucose 161 H 152 H Calcium 9.5 NT-Pro-B Natriuret Pep 4720 H 06/22/23 06/22/23 19:32 17:30 WBC RBC Hgb Hct MCV MCH MCHC RDW Plt Count MPV Immature Gran % (Auto) Neut % (Auto) Lymph % (Auto) [place] % (Auto) Eos % (Auto) Baso % (Auto) Lymph # (Auto) [place] # (Auto) Eos # (Auto) Baso # (Auto) Abs Immat Gran (auto) Absolute Neuts (auto) Absolute Nucleated RBC Nucleated RBC % Sodium Potassium Chloride Carbon Dioxide Anion Gap BUN Creatinine Estim Creat Clear Calc Estimated GFR Glucose POC Capillary Glucose 209 H 159 H Calcium NT-Pro-B Natriuret Pep Discharge Plan Discharge Attending physician on discharge: Hudson Hilario Consulting providers: Elodia Ibarra; Eddie Crystal Discharging Clinician: Tatum Graves
== END 2023-06-23 14:00 | disposition home or self-care (01) | DRG 291 ==
LOC: ANHED 22:29 → ANH2MED 06-20 01:58
PROVIDERS: Admitting Provider Family Medicine; Emergency Provider Physician Assistant; PCP Physician Assistant; Visit Provider Internal Medicine Critical Care Medicine
DX: I11.0 Hypertensive heart disease with heart failure (principal); I50.21 Acute systolic (congestive) heart failure; E78.5 Hyperlipidemia, unspecified; E11.9 Type 2 diabetes mellitus without complications; Z20.822 Contact with and (suspected) exposure to COVID-19; I42.9 Cardiomyopathy, unspecified
CPT/HCPCS: 36415; 71046; 71275; 80048; 80053; 81001; 82948; 83036; 83735; 83880; 84100; 84484; 85025; 85380; 85610; 85730; 87636; 93005; 93306; 96374; 99285; A9270; G0378; J1940; Q9967

== ENCOUNTER 2023-07-28 00:51 | Day surgery (SDC) | payer MEDICARE, SELFPAY ==
[2023-07-25 15:40] VITALS: BMI 25.1
[2023-07-28] VITALS (17 sets, daily range): BP systolic 89–119; BP diastolic 59–87; PULSE 69–88; RESP 18–24; TEMP 36.4; O2SAT 95–100; BMI 24.7
[2023-07-28 10:51] LABS: Anion Gap 10 mmol/L (8-16); Blood Urea Nitrogen 9 mg/dL (9-20); Calcium 9.3 mg/dL (8.4-10.2); Carbon Dioxide 22 mmol/L (22-30); Chloride 107 mmol/L (98-107); Estimated CRCL calculation 66 ml/min; Estimated Glomerular Filt Rate > 60; Glucose 146 mg/dL (65-110); Potassium 3.8 mmol/L (3.4-5.0); Sodium 139 mmol/L (137-145)
[2023-07-28 11:08] LABS: Basophils Percent Auto 0.4 % (0.2-1.2); Eosinophils Absolute Auto 0.1 K/mm3 (0-0.3); Eosinophils Percent Auto 1.7 % (0-4.4); Hematocrit 42.2 % (42.0-52.0); Hemoglobin 13.3 g/dL (14.0-18.0); Immature Granulocyte Absolute 0.02 K/mm3 (0.00-0.031); Immature Granulocyte Percent A 0.3 % (0-0.5); Lymphocytes Absolute Auto 2.03 K/mm3 (0.9-3.2); Lymphocytes Percent Auto 26.3 % (18.3-44.2); Mean Corpuscular HGB Conc 31.5 g/dl (32-36); Mean Corpuscular Hemoglobin 29.9 pg (26-34); Mean Corpuscular Volume 94.8 fl (80-100); Mean Platelet Volume 10.8 fl (7.4-10.4); Monocytes Absolute Auto 0.7 K/mm3 (0.1-0.6); Monocytes Percent Auto 8.4 % (2.6-8.5); Neutrophils Absolute Auto 4.9 K/mm3 (1.3-6.7); Neutrophils Percent Auto 62.9 % (45.5-73.1); Platelet Count Result 226 k/mm3 (150-375); Red Blood Count 4.45 M/mm3 (4.6-6.20); Red Cell Distribution Width 13.2 % (11.5-14.5); White Blood Count 7.7 K/mm3 (4.5-10.0)
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
--- NOTE | 2023-07-28 13:45 | WPDCARDPROC ---
Cardiac Cath Procedure Note Date of procedure:: 07/28/23 Performing physician:: Mt Baires MD Indication:: recently diagnosed cardiomyopathy Brief clinical history:: this is a 67-year-old man was recently hospitalized with decompensated heart failure. He was found to have non insulin-dependent diabetes and evidence of LV systolic dysfunction with a low ejection fraction. He was placed on guideline directed medical therapy and did well. He returns today for left heart catheterization to determine if ischemic disease is present Procedure Procedure performed:: left ventriculogram coronary angiogram Sedation/Medication given:: fentanyl 25 mg Versed 2 mg case start time 1324 p.m. case end time 1:38 p.m. sedation provided by Michelle Marquez RN, trained observer Access site:: right femoral artery Estimated blood loss:: less than 20 cc Procedure note:: patient was brought to the cardiac catheterization lab in the postabsorptive state where the right femoral triangle prepared and draped in the normal fashion. Anesthesia was provided with 1% lidocaine infiltrated locally. Using the modified Seldinger technique the femoral artery was punctured and 5 [place] vascular sheath was placed. After this left heart catheterization was carried out. I used a 5 [place] angled pigtail catheter to measure central hemodynamics and to inject the left ventriculogram in the MORRISSEY projection. Following this left coronary artery was injected using a standard 5 [place] FL4 catheter. The right coronary artery was then injected using a standard 5 [place] JR4 catheter. The cine angiograms were then reviewed and the case was terminated. The patient was taken to the holding area for manual sheath removal. There were no procedural complications and procedure was well tolerated. There was no evidence of groin hematoma upon leaving the crime lab analyst. Findings:: Hemodynamics: Central aortic pressure is 102 over 62 left ventricle 102/10 end-diastolic pressure 25 no gradient was seen across the aortic valve on pullback. Left ventricle: The LV is dilated. The basal segments contract better than the apex the mid to apical portion of the LV is essentially akinetic. The ejection fraction is low at 20% the left coronary artery is heavily calcified this is noted prior to any angiographic injection the left main coronary artery is medium in caliber is without significant stenosis the LAD is a diffusely diseased artery and as stated above is heavily calcified. In the mid LAD at the site of a small 2nd diagonal branch there is a 80-90% stenosis in the LAD. There was FREDERIC 3 flow in the vessel it is diffusely attenuated. Circumflex artery is 100% occluded at its origin the right coronary artery is medium to large in caliber dominant to the posterior circulation. The trunk of the right coronary is free of significant disease. The RPDA is patent and free of significant disease. The RPL branches are totally occluded at their origin Conclusion:: 1. right coronary dominant circulation with severe ischemic cardiomyopathy 2. total occlusion of the proximal circumflex as well as total occlusion of the RPL branch of the right coronary 3. diffusely diseased and heavily calcified LAD with high-grade stenosis in the midportion as detailed above. 4. severe LV systolic dysfunction obvious ischemic cardiomyopathy with low ejection fraction and elevated LVEDP Mt Baires MD [facility]
== END 2023-07-28 19:01 | disposition home or self-care (01) ==
PROVIDERS: PCP Physician Assistant; Visit Provider Specialist
PROC: 4A023N7 Measurement of Cardiac Sampling and Pressure, Left Heart, Percutaneous Approach (ICD-10-PCS; CPT 93452; principal; 2023-07-28 11:30)
DX: I25.5 Ischemic cardiomyopathy (principal); I25.82 Chronic total occlusion of coronary artery; I25.10 Atherosclerotic heart disease of native coronary artery without angina pectoris; I11.0 Hypertensive heart disease with heart failure; I50.20 Unspecified systolic (congestive) heart failure; F12.90 Cannabis use, unspecified, uncomplicated; Z87.891 Personal history of nicotine dependence; Z79.85 Long-term (current) use of injectable non-insulin antidiabetic drugs
CPT/HCPCS: 36415; 80048; 85025; 93458; C1887; C1894; J1644; J2250; J3010; J7040

== ENCOUNTER 2023-10-31 10:27 | Inpatient (IN) | payer MEDICARE, SELFPAY ==
[2023-10-31] VITALS (23 sets, daily range): BP systolic 86–111; BP diastolic 53–85; PULSE 84–102; RESP 16–28; TEMP 36.2–36.6; O2SAT 89–100; BMI 27.2
--- NOTE | ~2023-10-31 | XR_ITS ---
EXAMINATION: [id number] DATE: 11/04/2023 14:54 INDICATION: Left pleural effusion status post thoracentesis. TECHNIQUE: A single frontal view of the chest was obtained. COMPARISON: Chest single view 11/03/2023, chest CT 10/31/2023 FINDINGS: There is a small left pleural effusion. There is airspace opacities in left mid and lower l nico zones. No pneumothorax. Cardiomegaly is noted. There are old healed right rib fractures. IMPRESSION: 1. Small left pleural effusion with improvement status post thoracentesis. 2. Airspace opacities in left mid and lower lung zones with interval improvement, likely atelectasis. 3. Cardiomegaly. Reviewed, dictated and finalized at location E. TAT MANAGEMENT COORDINATOR IMPRESSION: 1. Small left pleural effusion with improvement status post thoracentesis. 2. Airspace opacities in left mid and lower lung zones with interval improvemen t, likely atelectasis. 3. Cardiomegaly.
--- NOTE | ~2023-10-31 | XR_ITS ---
EXAMINATION: XR chest 1V portable DATE: 11/04/2023 18:19 INDICATION: Pneumonia. TECHNIQUE: A single frontal view of the chest was obtained. COMPARISON: Chest single view 11/04/2023 at 2:51 PM FINDINGS: There is a small left pleural effusion. There are airspace opacities in left mid and lower lung zones. No pneumothorax. Cardiomegaly is noted. There are old healed right rib fractures. IMPRESSION: 1. Persistent airspace opacities in left mid and lower lung zones, consistent with atelectasis versus pneumonia. 2. Stable small left pleural effusion. 3. Cardiomegaly. Reviewed, dictated and finalized at location E. BER WALKER IMPRESSION: 1. Persistent airspace opacities in left mid and lower lung zones, consistent w ith atelectasis versus pneumonia. 2. Stable small left pleural effusion. 3. Cardiomegaly.
--- NOTE | ~2023-10-31 | XR_ITS ---
Portable chest x-ray Comparison: 06/19/2023 Clinical History: Shortness of breath Findings: Moderate left pleural effusion present with probable left basilar atelectasis. Right lung clear. Cardiomediastinal silhouette is stable. Bones and soft tissues are unremarkable. Impression: Moderate left pleural effusion with probable left lower lobe atelectasis. Correlate for underlying pn eumonia. Reviewed, dictated and finalized at location . RDOUS MATERIALS ANALYST Impression: Moderate left pleural effusion with probable left lower lobe atelectasis. Corre late for underlying pneumonia.
--- NOTE | ~2023-10-31 | CT_ITS ---
EXAMINATION: CT abdomen pelvis wo con DATE: 11/05/2023 19:47 INDICATION: Diarrhea. TECHNIQUE: Computed tomography (CT) of the abdomen and pelvis was performed without intravenous contr ast. Automated exposure control and iterative reconstruction technique were employed. The dose-length product was 715.77 mGy-cm. COMPARISON: Chest CT 10/31/2023 FINDINGS: The visualized portions of the lung bases demonstrate small right and moderate-sized left p leural effusions. There are groundglass and airspace opacities in left lower lobe and lingula. The he art size is normal. There are coronary artery calcifications. No pericardial effusion. There is perip ortal edema in the liver. The gallbladder is normal in size and contains a gallstone. Gallbladder wal l thickening is likely secondary to interstitial edema. The spleen, pancreas, and adrenal glands are normal. There is a 3 mm stone in right kidney. There is a 3 mm stone in left kidney. There are no dil ated loops of bowel. The appendix is normal. There is a large volume of ascites. Aortic atheroscleros is is noted. There is a borderline enlarged left external iliac node, likely reactive. There is a rig ht inguinal hernia containing fat. Body wall edema is noted. There is edema of the intra-abdominal fa t. There is mild thoracic and lumbar spondylosis. IMPRESSION: 1. Small right and moderate-sized left pleural effusions. 2. Groundglass and airspace opacities in left lower lobe and lingula, consistent with pneumonia. 3. Large volume of ascites. Reviewed, dictated and finalized at location E. PUMP OPERATOR IMPRESSION: 1. Small right and moderate-sized left pleural effusions. 2. Groundglass and airspace opacities in left lower lobe and lingula, consisten t with pneumonia. 3. Large volume of ascites.
--- NOTE | ~2023-10-31 | CT_ITS ---
EXAMINATION: CTA chest PE protocol DATE: 10/31/2023 12:16 INDICATION: Dyspnea. Elevated d-dimer. TECHNIQUE: Computed tomography angiography (CTA) of the chest was performed with 100 mL Omnipaque-350 intravenous contrast timed to evaluate the pulmonary arteries. Coronal maximum intensity projection 3D-reconstructions were created by the technologist. Automated exposure control and iterative reconst ruction technique were employed. Exam dose: 456.73 mGy-cm total exam DLP. COMPARISON: 10/31/2023 portable AP chest 06/19/2023 CTA chest FINDINGS: The left lower lobe pulmonary arteries are not well demonstrated due to severe compressive atelectasis of left lower lobe secondary to large left pleural effusion. Otherwise no pulmonary emboli are evident. Borderline heart size. Prominent coronary artery calcifications. No pericardial effusion. No thoracic aortic aneurysm. Mild right pleural effusion. Mild bilateral gynecomastia. There are multiple up to 10 mm cross-section diameter left axillary lymph nodes. In addition to severe left lower lobe atelectasis versus lingular infiltrate or atelectasis. There is diffuse patchy groundglass density of the lungs which may be due to small airways disease, atelectas is or pneumonitis. Prominent ascites. There is nodularity of the omentum, possibly due to edema; omental metastases are not excluded on thi s limited examination. Old healed right rib fractures. Degenerative change of the lower cervical and thoracic and lumbar spi ne. No suspicious osteolytic or osteoblastic lesions are noted. IMPRESSION: Bilateral pleural effusions, particularly large on the left, causing severe compressive atelectasis of the left lower lobe Lingular infiltrate/atelectasis Diffuse patchy groundglass infiltrates of the lungs which may be due to small airways disease, atelec tasis or pneumonitis Mild dependent right lower lobe atelectasis. No pulmonary embolus is detected Cardiomegaly, coronary artery atherosclerosis Ascites Nodular densities of the omentum; consider edema of the omentum versus metastases Reviewed, dictated and finalized at [facility]. Reviewed, dictated and finalized at location B. SHOP ATTENDANT IMPRESSION: Bilateral pleural effusions, particularly large on the left, causi ng severe compressive atelectasis of the left lower lobe Lingular infiltrate/atelectasis Diffuse patchy groundglass infiltrates of the lungs which may be due to small a irways disease, atelectasis or pneumonitis Mild dependent right lower lobe atelectasis. No pulmonary embolus is detected Cardiomegaly, coronary artery atherosclerosis Ascites Nodular densities of the omentum; consider edema of the omentum versus metastas es
--- NOTE | ~2023-10-31 | US_ITS ---
EXAMINATION: US paracentesis abd w/image DATE: 11/06/2023 17:21 INDICATION: Ascites. TECHNIQUE: The procedure and its risks and benefits were discussed with the patient. Potential risks discussed included bleeding and infection. The skin was prepped and draped in sterile fashion. 1% lid ocaine was used for local anesthesia. Under ultrasound guidance, a 5 Fr catheter with trochar was adv anced into the ascites in the left lower quadrant. Fluid was aspirated into vacuum bottles. The lisa ter was removed, and a dressing was applied. There were no immediate complications. FINDINGS: Ultrasound images demonstrate ascites and the catheter within the fluid. IMPRESSION: 1. Successful ultrasound-guided paracentesis yielding 1900 mL of clear yellow fluid. Reviewed, dictated and finalized at location A. NESS HE[employer] COACH
--- NOTE | ~2023-10-31 | US_ITS ---
EXAMINATION: US thoracentesis DATE: 11/04/2023 14:54 INDICATION: Moderate-sized left pleural effusion TECHNIQUE: The procedure and its risks and benefits were discussed with the patient. Potential risks discussed included bleeding, infection, and pneumothorax. The patient understood the risks and agreed to proceed. The skin was prepped and draped in sterile fashion. 1% lidocaine was used for local anes thesia. Under ultrasound guidance, a 5 Fr catheter with trochar was advanced into the left pleural ef fusion. Fluid was aspirated. The catheter was removed, and a dressing was applied. There were no imme diate complications. FINDINGS: Ultrasound images demonstrate a moderate-sized left pleural effusion and the catheter within the flui d. IMPRESSION: 1. Successful ultrasound-guided thoracentesis yielding 1000 mL of dark brownish fluid. Reviewed, dictated and finalized at location A. TECH IMPRESSION: 1. Successful ultrasound-guided thoracentesis yielding 1000 mL of dark brownis h fluid.
--- NOTE | ~2023-10-31 | XR_ITS ---
Portable chest x-ray Comparison: 10/31/2023 Clinical History: Pleural effusion Findings: Moderate left pleural effusion is unchanged. Right lung clear. Cardiomediastinal silhouet te is stable. Bones and soft tissues are unremarkable. Impression: Stable moderate left pleural effusion. Reviewed, dictated and finalized at location . HING YOUNG Impression: Stable moderate left pleural effusion.
--- NOTE | ~2023-10-31 | US_ITS ---
EXAMINATION: US venous doppler [facility] DATE: 10/31/2023 12:02 INDICATION: Lower limb swelling TECHNIQUE: Grayscale ultrasound images without and with compression and Doppler ultrasound images of the bilateral lower extremity veins were obtained. COMPARISON: None. FINDINGS: Limited evaluation related to patient body habitus and poor visualization of the vessels. Vascular fl ow identified on color Doppler and no definitive noncompressible thrombus in the visualized portions of right common femoral vein, profunda (deep) femoral vein, femoral vein, popliteal vein, posterior t ibial veins, peroneal veins, gastrocnemius vein and greater saphenous vein outflow. Per discussion wi th the extended day teacher, portions of the vessels were unable to be visualized on color Doppler. As in the contralateral right lower limb, vascular flow identified on color Doppler and no definitive noncompressible thrombus in the visualized portions of left common femoral vein, profunda femoral ve in, femoral vein, popliteal vein, posterior tibial veins, peroneal veins, gastrocnemius vein and grea ter saphenous vein. IMPRESSION: 1. No deep venous thrombosis identified in either lower limb. Study is however significantly limited by poor visualization of the vessels. Reviewed, dictated and finalized at location A. NTION OFFICER
--- NOTE | 2023-10-31 10:31 | ECG_ITS ---
Measurements Intervals [place] Rate: 89 P: 53 ID: [id number] QRS: 219 QRSD: 126 T: 77 QT: 391 QTc: 478 Interpretive Statements SINUS RHYTHM RIGHT AXIS DEVIATION RIGHT BUNDLE BRANCH BLOCK ANTEROSEPTAL INFARCT, AGE INDETERMINATE BASELINE ARTIFACT- I, II, III, AVR, AVL,A VF, V1-V2 ABNORMAL ECG COMPARED TO ECG 06/20/2023 13:52:09 NO SIGNIFICANT CHANGES Electronically Signed On 10-31-2023 10:59:55 CONTRACTS INTERN by Kevin Key D.O.
[2023-10-31 11:00] LABS: Basophils Percent Auto 0.2 % (0.2-1.2); Eosinophils Absolute Auto 0.1 K/mm3 (0-0.3); Eosinophils Percent Auto 1.8 % (0-4.4); Hematocrit 39.8 % (42.0-52.0); Hemoglobin 12.2 g/dL (14.0-18.0); Immature Granulocyte Absolute 0.02 K/mm3 (0.00-0.031); Immature Granulocyte Percent A 0.3 % (0-0.5); Lymphocytes Absolute Auto 0.97 K/mm3 (0.9-3.2); Lymphocytes Percent Auto 14.9 % (18.3-44.2); Mean Corpuscular HGB Conc 30.7 g/dl (32-36); Mean Corpuscular Hemoglobin 28.4 pg (26-34); Mean Corpuscular Volume 92.8 fl (80-100); Mean Platelet Volume 10.4 fl (7.4-10.4); Monocytes Absolute Auto 0.7 K/mm3 (0.1-0.6); Monocytes Percent Auto 10.9 % (2.6-8.5); Neutrophils Absolute Auto 4.7 K/mm3 (1.3-6.7); Neutrophils Percent Auto 71.9 % (45.5-73.1); Platelet Count Result 240 k/mm3 (150-375); Red Blood Count 4.29 M/mm3 (4.6-6.20); Red Cell Distribution Width 16.1 % (11.5-14.5); White Blood Count 6.5 K/mm3 (4.5-10.0)
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
[2023-10-31 11:10] LABS: INR 1.2; Partial Thromboplastin Time 35.4 SECONDS (22.3-36.8); Prothrombin Time 16.2 Seconds (11.1-14.7)
[2023-10-31 11:15] LABS: Alanine Aminotransferase 24 U/L (6-50); Albumin Level 3.8 g/dL (3.5-5.1); Alkaline Phosphatase 128 U/L (38-126); Anion Gap 7 mmol/L (8-16); Aspartate Amino Transferase 31 U/L (17-59); Bilirubin,Total 1.5 mg/dL (0.2-1.3); Blood Urea Nitrogen 24 mg/dL (9-20); Calcium 9.2 mg/dL (8.4-10.2); Carbon Dioxide 36 mmol/L (22-30); Chloride 94 mmol/L (98-107); Estimated CRCL calculation 59 ml/min; Estimated Glomerular Filt Rate > 60; Glucose 169 mg/dL (65-110); Potassium 4.8 mmol/L (3.4-5.0); Sodium 137 mmol/L (137-145)
[2023-10-31 11:26] LABS: NT Pro B Type Natriuretic Pept 4180 pg/mL (19.9-100); Troponin I < 0.012 ng/mL (0.000-0.034)
[2023-10-31 11:33] LABS: D Dimer 3.45 ug/mL (<0.48)
[2023-10-31 14:51] LABS: Appearance Urine Clear (Clear); Bacteria Urine None Seen /hpf; Bilirubin Urine Negative (Negative); Blood Urine Negative (Negative); Color Urine Yellow (Yellow); Glucose Urine UA Negative (Negative); Ketones Urine Negative (Negative); Leukocyte Esterase Ur Negative LEU/UL (Negative); Nitrate Urine Negative (Negative); Non Pathogenic Casts 0-2; Protein Urine Trace mg/dL (Negative); RBC Urine 0-2 /hpf (0-2); Squamous Epithelial Cell Urine None seen /hpf (Few); WBC Urine 0-5 /hpf
[2023-10-31 14:52] LABS: Add Urine Microscopic? YES; Specific Grav Ur 1.075 (1.001-1.035)
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
--- NOTE | 2023-10-31 15:05 | ADMGEN ---
This patient, Dre Coates, was admitted to IMU Room 205-01. Patient/family oriented to hospital policies and general routines including ID bracelet, bed and alarms, visiting hours, pain management, procedures, bathroom and other care routines, personal items, smoking policy, room service/diet, and visiting hours. Information on how to activate the Rapid Response Team has been discussed. Patient/Family are encouraged to report perceived risks to care and to ask questions if they do not understand what they are told or what they should do.
[2023-10-31] MEDS: FUROSEMIDE INJ 40 MG/4 ML VIAL IV PUSH (17:13)
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
[2023-10-31 20:04] LABS: Glucose Point of Care 159 mg/dl (65-105)
[2023-10-31] MEDS: SACUBITRIL/VALSARTAN 24-26 MG TABLET 1 TAB PO (20:57)
[2023-10-31] MEDS: traZODone HCL 50 MG TABLET PO (20:57)
[2023-10-31] MEDS: ESCITALOPRAM OXALATE 10 MG TABLET PO (20:58)
[2023-11-01] VITALS (18 sets, daily range): BP systolic 87–110; BP diastolic 51–70; PULSE 92–114; RESP 15–24; TEMP 36.1–36.7; O2SAT 93–100
[2023-11-01 04:41] LABS: Hematocrit 40.3 % (42.0-52.0); Hemoglobin 12.5 g/dL (14.0-18.0); Mean Corpuscular Hemoglobin 28.5 pg (26-34); Mean Platelet Volume 10.6 fl (7.4-10.4); Platelet Count Result 260 k/mm3 (150-375); Red Blood Count 4.38 M/mm3 (4.6-6.20); Red Cell Distribution Width 16.1 % (11.5-14.5); White Blood Count 6.1 K/mm3 (4.5-10.0)
[2023-11-01 04:52] LABS: Anion Gap 10 mmol/L (8-16); Blood Urea Nitrogen 22 mg/dL (9-20); Calcium 9.2 mg/dL (8.4-10.2); Carbon Dioxide 34 mmol/L (22-30); Chloride 92 mmol/L (98-107); Estimated CRCL calculation 59 ml/min; Estimated Glomerular Filt Rate > 60; Glucose 144 mg/dL (65-110); Magnesium 2.4 mg/dL (1.6-2.3); Sodium 136 mmol/L (137-145)
[2023-11-01 08:17] LABS: Glucose Point of Care 143 mg/dl (65-105)
[2023-11-01] MEDS: FUROSEMIDE INJ 40 MG/4 ML VIAL IV PUSH ×2 (08:42→17:57)
[2023-11-01] MEDS: SPIRONOLACTONE 25 MG TABLET PO (08:43)
[2023-11-01] MEDS: ASCORBIC ACID 500 MG TABLET PO (08:43)
[2023-11-01] MEDS: METOPROLOL SUCCINATE EXT REL 25 MG TABCR PO (08:44)
[2023-11-01] MEDS: EMPAGLIFLOZIN 10 MG TABLET PO (08:44)
[2023-11-01] MEDS: SACUBITRIL/VALSARTAN 24-26 MG TABLET 1 TAB PO ×2 (08:44→17:57)
[2023-11-01] MEDS: CLOPIDOGREL BISULFATE 75 MG TABLET PO (08:45)
[2023-11-01] MEDS: ATORVASTATIN 40 MG TABLET PO (08:45)
[2023-11-01] MEDS: THIAMINE HCL 100 MG TABLET PO (08:45)
[2023-11-01] MEDS: ENOXAPARIN 40 MG/0.4 ML SYRINGE SUB-Q (08:46)
--- NOTE | 2023-11-01 09:44 | PM.PNCARD ---
Progress Note: A&P Assessment and Plan (1) Ischemic cardiomyopathy: Code(s): I25.5 - Ischemic cardiomyopathy Status: Acute Assessment and Plan: EF 17% by most recent echo. Continue guideline directed medical therapy with Entresto, Toprol-XL, spironolactone. He is not on Jardiance because he is on Rybelsus for his diabetes. He has declined life vest in the past. However, since he has been on medical therapy for nearly 6 months now with no improvement of his systolic function, will need to consider ICD. I talked with him about outpatient referral to the [facility] at [place] for long-term management of his severe cardiomyopathy including durable options such as heart transplant or LVAD. (2) CHF exacerbation: Qualifiers: Heart failure type: systolic Qualified Code(s): I50.23 - Acute on chronic systolic (congestive) heart failure Code(s): I50.9 - Heart failure, unspecified Status: Acute Assessment and Plan: Acute on chronic systolic heart failure despite increased dose of diuretics at home. Continue furosemide 40 mg IV b.i.d.. Creatinine 1.0 today. Continue to monitor BMP When he is ready to be shifted back to an oral diuretic, consider Bumex or torsemide Thoracentesis pending Strict intake and output Daily weights Low-sodium diet CHF counseling (3) Pleural effusion: Code(s): J90 - Pleural effusion, not elsewhere classified Status: Acute Assessment and Plan: Thoracentesis ordered (4) Hypotension: Qualifiers: Hypotension type: unspecified hypotension type Qualified Code(s): I95.9 - Hypotension, unspecified Code(s): I95.9 - Hypotension, unspecified Status: Acute Assessment and Plan: He is chronically hypotensive related to his poor cardiac output and medical therapy for his cardiomyopathy. He is asymptomatic. (5) Hyperlipidemia: Code(s): E78.5 - Hyperlipidemia, unspecified Status: Acute Assessment and Plan: Continue statin Subjective Date/time seen: 11/01/23 09:44 Interval history: paul Coates is a 68-year-old with hypertension, hyperlipidemia, coronary artery disease, and ischemic cardiomyopathy with an EF of 17%.? He was initially seen by Dr. Jewell in May of 2023 for CHF and was found to have severe LV systolic dysfunction with an EF of 25%.? He underwent cardiac catheterization by Dr. Baires on 07/28/2023 and was found to have a diffusely diseased LAD with 80-90% stenosis in the mid LAD at the origin of the 2nd diagonal branch.? The left circumflex was 100% occluded as origin, trunk of the RCA was free of disease, RPDA patent and free of significant disease, RPL totally occluded at the origin.? He was referred to [facility] for high risk PCI and did have successful Impella supported PCI.? He was seen in the office for follow-up and was felt to be volume overloaded despite increasing oral diuretics over the past week.? Therefore, he was sent to the emergency department and admitted for decompensated heart failure Date of service 11/01/2023: Breathing a little easier. Abdominal distension has slightly improved. No chest pain Review of Systems Review of Systems: All systems reviewed & are unremarkable except as noted in HPI and below Cardiovascular: Comments: Improved swelling Gastrointestinal: Comments: Abdominal distension Exam Const: General: comfortable, no acute distress, alert and awake Orientation/consciousness: patient oriented x3 HENMT: Head: normal to inspection Eyes: General: appearance normal, both eyes and all related structures Sclera: sclerae normal Neck: Neck: normal visual inspection, supple and no JVD Carotids: normal carotid upstroke Resp: Effort & Inspection: abnormal respiratory effort Auscultation: not clear to auscultation bilaterally, rales and diminished lung sounds Cardio: Rate: regular rate Rhythm: regular rhythm Hear
--- NOTE | 2023-11-01 09:49 | PM.IMPN ---
Progress Note: A&P Assessment and Plan (1) Volume overload: Code(s): E87.70 - Fluid overload, unspecified Status: Acute Assessment and Plan: Appreciate cardiology consultation, continue IV diuresis with Lasix 40 mg q.12 Strict I&Os, daily BMP, daily weights, low-sodium diet Thoracentesis scheduled 11/01 due to pleural effusions 11/01: Improving, continue current management (2) Ischemic cardiomyopathy: Code(s): I25.5 - Ischemic cardiomyopathy Status: Acute Assessment and Plan: See above Will need outpatient management at the [facility] and consideration for ICD (3) Coronary artery disease: Code(s): I25.10 - Atherosclerotic heart disease of [place] coronary artery without angina pectoris Status: Acute Assessment and Plan: See above (4) Hypotension: Qualifiers: Hypotension type: unspecified hypotension type Qualified Code(s): I95.9 - Hypotension, unspecified Code(s): I95.9 - Hypotension, unspecified Status: Acute Assessment and Plan: Stable (5) Type 2 diabetes mellitus: Code(s): E11.9 - Type 2 diabetes mellitus without complications Status: Acute Assessment and Plan: Accu-Cheks, sliding scale insulin, blood glucose reviewed 11/01 Check A1c Plan DVT prophylaxis with Lovenox GI prophylaxis not indicated Code status full code Subjective Date/time seen: 11/01/23 09:49 Interval history: 68-year-old male with ischemic cardiomyopathy and an EF of 17% is presenting with heart failure exacerbation. No overnight events noted. No chest pain or shortness of breath. No nausea, vomiting or diarrhea. No fevers or chills. Review of Systems Review of Systems: 12 point review of systems was assessed and was negative except as noted in the HPI Exam Narrative: General: No acute distress, alert and oriented per baseline HEENT: Atraumatic, normocephalic, mucous membranes moist CV: Regular rate and rhythm, S1, S2 Lungs: Clear to auscultation bilaterally, no rales or crackles noted, no wheezes, good air entry Abdomen: Soft, nontender, nondistended Extremities: Normal to inspection Skin: No rashes noted, no lesions or wounds seen Psych: Euthymic, normal affect Objective Data Vital Signs Vital Signs: Vital Signs - 24 hr 10/31/23 10:31 10/31/23 10:45 10/31/23 10:46 Temperature 97.9 F Pulse Rate 90 90 92 Respiratory Rate 23 H 20 28 H Blood Pressure 86/61 L 94/72 L 97/72 L Pulse Oximetry 100 100 100 Oxygen Delivery Room Air 10/31/23 11:01 10/31/23 11:16 10/31/23 11:31 Temperature Pulse Rate 91 93 90 Respiratory Rate 22 H 24 H 22 H Blood Pressure 94/72 L 97/71 L 90/64 L Pulse Oximetry 100 100 Oxygen Delivery 10/31/23 11:46 10/31/23 12:20 10/31/23 12:31 Temperature Pulse Rate 88 91 87 Respiratory Rate 22 H 24 H 22 H Blood Pressure 87/71 L 87/65 L 86/67 L Pulse Oximetry 99 100 99 Oxygen Delivery 10/31/23 12:46 10/31/23 13:01 10/31/23 13:16 Temperature Pulse Rate 88 86 88 Respiratory Rate 24 H 26 H 22 H Blood Pressure 87/68 L 94/53 L 96/61 L Pulse Oximetry 89 L 97 Oxygen Delivery 10/31/23 13:31 10/31/23 13:46 10/31/23 14:01 Temperature Pulse Rate 87 84 87 Respiratory Rate 22 H 22 H 20 Blood Pressure 94/70 L 90/62 L 93/65 L Pulse Oximetry 97 100 100 Oxygen Delivery 10/31/23 14:31 10/31/23 15:05 10/31/23 16:00 Temperature 97.3 F L Pulse Rate 100 95 Respiratory Rate 22 H 18 Blood Pressure 111/85 97/72 L Pulse Oximetry 100 98 Oxygen Delivery Room Air 10/31/23 16:00 10/31/23 18:00 10/31/23 19:35 Temperature 97.1 F L Pulse Rate 95 95 99 Respiratory Rate 16 Blood Pressure 91/61 L Pulse Oximetry 100 Oxygen Delivery 10/31/23 19:55 10/31/23 19:55 10/31/23 19:55 Temperature Pulse Rate Respiratory Rate Blood Pressure 94/65 L 99/59 L 98/54 L Pulse Oxim
[2023-11-01 12:11] LABS: Glucose Point of Care 156 mg/dl (65-105)
[2023-11-01] MEDS: BENZONATATE 100 MG CAPSULE PO (15:12)
[2023-11-01 16:41] LABS: Glucose Point of Care 141 mg/dl (65-105)
[2023-11-01 20:11] LABS: Glucose Point of Care 213 mg/dl (65-105)
[2023-11-01] MEDS: INSULIN ASPART (*BKC) 100 UNITS/ML SUB-Q (20:38)
[2023-11-01] MEDS: ESCITALOPRAM OXALATE 10 MG TABLET PO (20:38)
[2023-11-01] MEDS: traZODone HCL 50 MG TABLET PO (20:38)
[2023-11-02] VITALS (16 sets, daily range): BP systolic 91–105; BP diastolic 45–67; PULSE 87–100; RESP 18–20; TEMP 36.3–36.9; O2SAT 94–100
[2023-11-02 04:03] LABS: Basophils Percent Auto 0.3 % (0.2-1.2); Eosinophils Absolute Auto 0.2 K/mm3 (0-0.3); Eosinophils Percent Auto 3.1 % (0-4.4); Hematocrit 37.9 % (42.0-52.0); Hemoglobin 12.1 g/dL (14.0-18.0); Immature Granulocyte Absolute 0.02 K/mm3 (0.00-0.031); Immature Granulocyte Percent A 0.3 % (0-0.5); Lymphocytes Absolute Auto 1.06 K/mm3 (0.9-3.2); Lymphocytes Percent Auto 16.6 % (18.3-44.2); Mean Corpuscular HGB Conc 31.9 g/dl (32-36); Mean Corpuscular Hemoglobin 28.7 pg (26-34); Mean Corpuscular Volume 89.8 fl (80-100); Mean Platelet Volume 10.4 fl (7.4-10.4); Monocytes Absolute Auto 0.8 K/mm3 (0.1-0.6); Monocytes Percent Auto 12.1 % (2.6-8.5); Neutrophils Absolute Auto 4.3 K/mm3 (1.3-6.7); Neutrophils Percent Auto 67.6 % (45.5-73.1); Platelet Count Result 228 k/mm3 (150-375); Red Blood Count 4.22 M/mm3 (4.6-6.20); White Blood Count 6.4 K/mm3 (4.5-10.0)
[2023-11-02 04:16] LABS: Alanine Aminotransferase 20 U/L (6-50); Albumin Level 3.5 g/dL (3.5-5.1); Alkaline Phosphatase 139 U/L (38-126); Anion Gap 5 mmol/L (8-16); Aspartate Amino Transferase 28 U/L (17-59); Bilirubin,Total 1.4 mg/dL (0.2-1.3); Blood Urea Nitrogen 25 mg/dL (9-20); Calcium 8.9 mg/dL (8.4-10.2); Carbon Dioxide 34 mmol/L (22-30); Chloride 95 mmol/L (98-107); Estimated CRCL calculation 59 ml/min; Estimated Glomerular Filt Rate > 60; Glucose 122 mg/dL (65-110); Potassium 3.9 mmol/L (3.4-5.0); Sodium 134 mmol/L (137-145)
[2023-11-02] MEDS: THIAMINE HCL 100 MG TABLET PO (08:43)
[2023-11-02] MEDS: METOPROLOL SUCCINATE EXT REL 25 MG TABCR PO (08:43)
[2023-11-02] MEDS: ENOXAPARIN 40 MG/0.4 ML SYRINGE SUB-Q (08:43)
[2023-11-02] MEDS: CLOPIDOGREL BISULFATE 75 MG TABLET PO (08:43)
[2023-11-02] MEDS: EMPAGLIFLOZIN 10 MG TABLET PO (08:43)
[2023-11-02] MEDS: ATORVASTATIN 40 MG TABLET PO (08:43)
[2023-11-02] MEDS: SPIRONOLACTONE 25 MG TABLET PO (08:43)
[2023-11-02] MEDS: SACUBITRIL/VALSARTAN 24-26 MG TABLET 1 TAB PO ×2 (08:43→17:36)
[2023-11-02] MEDS: ASCORBIC ACID 500 MG TABLET PO (08:43)
[2023-11-02] MEDS: FUROSEMIDE INJ 40 MG/4 ML VIAL IV PUSH ×2 (08:44→17:36)
[2023-11-02] MEDS: BENZONATATE 100 MG CAPSULE PO ×3 (08:44→17:36)
[2023-11-02 08:56] LABS: Glucose Point of Care 223 mg/dl (65-105)
--- NOTE | 2023-11-02 10:41 | PM.PNCARD ---
Progress Note: A&P Assessment and Plan (1) Ischemic cardiomyopathy: Code(s): I25.5 - Ischemic cardiomyopathy Status: Acute Assessment and Plan: EF 17% by most recent echo. Continue guideline directed medical therapy with Entresto, Toprol-XL, spironolactone. He is not on Jardiance because he is on Rybelsus for his diabetes. He has declined life vest in the past. However, since he has been on medical therapy for nearly 6 months now with no improvement of his systolic function, will need to consider ICD. He needs to be seen by the [facility] at [place] for long-term management of his severe cardiomyopathy including durable options such as heart transplant or LVAD. (2) CHF exacerbation: Qualifiers: Heart failure type: systolic Qualified Code(s): I50.23 - Acute on chronic systolic (congestive) heart failure Code(s): I50.9 - Heart failure, unspecified Status: Acute Assessment and Plan: Acute on chronic systolic heart failure despite increased dose of diuretics at home. Continue furosemide 40 mg IV b.i.d.. Creatinine 1.0 again today. Continue to monitor BMP Will try inotropics in the form of dobutamine 2.5 mcg/kg/minute Thoracentesis pending Strict intake and output Daily weights Low-sodium diet CHF counseling (3) Pleural effusion: Code(s): J90 - Pleural effusion, not elsewhere classified Status: Acute (4) Hypotension: Qualifiers: Hypotension type: unspecified hypotension type Qualified Code(s): I95.9 - Hypotension, unspecified Code(s): I95.9 - Hypotension, unspecified Status: Acute Assessment and Plan: He is chronically hypotensive related to his poor cardiac output and medical therapy for his cardiomyopathy. He is asymptomatic. (5) Hyperlipidemia: Code(s): E78.5 - Hyperlipidemia, unspecified Status: Acute Assessment and Plan: Continue statin Subjective Date/time seen: 11/02/23 10:41 Interval history: paul Coates is a 68-year-old with hypertension, hyperlipidemia, coronary artery disease, and ischemic cardiomyopathy with an EF of 17%.? He was initially seen by Dr. Jewell in May of 2023 for CHF and was found to have severe LV systolic dysfunction with an EF of 25%.? He underwent cardiac catheterization by Dr. Baires on 07/28/2023 and was found to have a diffusely diseased LAD with 80-90% stenosis in the mid LAD at the origin of the 2nd diagonal branch.? The left circumflex was 100% occluded as origin, trunk of the RCA was free of disease, RPDA patent and free of significant disease, RPL totally occluded at the origin.? He was referred to [facility] for high risk PCI and did have successful Impella supported PCI.? He was seen in the office for follow-up and was felt to be volume overloaded despite increasing oral diuretics over the past week.? Therefore, he was sent to the emergency department and admitted for decompensated heart failure Date of service 11/01/2023: Breathing a little easier. Abdominal distension has slightly improved. No chest pain Date of service 11/02/2023: Still feels a bit better but still has significant abdominal distention and lower extremity edema. No chest pain Review of Systems Review of Systems: All systems reviewed & are unremarkable except as noted in HPI and below Gastrointestinal: Comments: Abdominal distension Integumentary/Breasts: Comments: Swelling lower extremity Exam Const: General: comfortable, no acute distress, alert and awake Orientation/consciousness: patient oriented x3 HENMT: Head: normal to inspection Eyes: General: appearance normal, both eyes and all related structures Sclera: sclerae normal Neck: Neck: normal visual inspection, supple and no JVD Carotids: normal carotid upstroke Resp: Effort & Inspection: abnormal respiratory effort Auscultation: not clear to auscultation bilaterally, rales and diminished dajuan
[2023-11-02] MEDS: DOBUTamine 250 MG/D5W 250 ML 250 MG/250 ML BAG 11.25 MG IV CONT (11:29)
[2023-11-02] MEDS: POTASSIUM CHLORIDE 20 MEQ ER TABLET PO (11:30)
[2023-11-02 14:25] LABS: Glucose Point of Care 158 mg/dl (65-105)
[2023-11-02 16:33] LABS: Glucose Point of Care 148 mg/dl (65-105)
--- NOTE | 2023-11-02 17:16 | PM.IMPN ---
Progress Note: A&P Assessment and Plan (1) Volume overload: Code(s): E87.70 - Fluid overload, unspecified Status: Acute Assessment and Plan: Appreciate cardiology consultation, continue IV diuresis with Lasix 40 mg q.12 Strict I&Os, daily BMP, daily weights, low-sodium diet Thoracentesis scheduled 11/01 due to pleural effusions 11/01: Improving, continue current management 11/02: Continue diuresis, add dobutamine, appreciate Cardiology management (2) Ischemic cardiomyopathy: Code(s): I25.5 - Ischemic cardiomyopathy Status: Acute Assessment and Plan: See above Will need outpatient management at the [facility] and consideration for ICD (3) Coronary artery disease: Code(s): I25.10 - Atherosclerotic heart disease of [place] coronary artery without angina pectoris Status: Acute Assessment and Plan: See above (4) Hypotension: Qualifiers: Hypotension type: unspecified hypotension type Qualified Code(s): I95.9 - Hypotension, unspecified Code(s): I95.9 - Hypotension, unspecified Status: Acute Assessment and Plan: Stable (5) Type 2 diabetes mellitus: Code(s): E11.9 - Type 2 diabetes mellitus without complications Status: Acute Assessment and Plan: Accu-Cheks, sliding scale insulin, blood glucose reviewed 11/02 Check A1c Plan DVT prophylaxis with Lovenox GI prophylaxis not indicated Code status full code Subjective Date/time seen: 11/02/23 17:16 Interval history: 68-year-old male with ischemic cardiomyopathy and an EF of 17% is presenting with heart failure exacerbation. No overnight events noted. No chest pain or shortness of breath. No nausea, vomiting or diarrhea. No fevers or chills. Review of Systems Review of Systems: 12 point review of systems was assessed and was negative except as noted in the HPI Exam Narrative: General: No acute distress, alert and oriented per baseline HEENT: Atraumatic, normocephalic, mucous membranes moist CV: Regular rate and rhythm, S1, S2 Lungs: Clear to auscultation bilaterally, no rales or crackles noted, no wheezes, good air entry Abdomen: Soft, nontender, nondistended Extremities: Normal to inspection Skin: No rashes noted, no lesions or wounds seen Psych: Euthymic, normal affect Objective Data Vital Signs Vital Signs: Vital Signs - 24 hr 11/01/23 17:58 11/01/23 19:24 11/01/23 19:28 Temperature 97.7 F Pulse Rate 102 H 107 H Respiratory Rate 20 Blood Pressure 92/63 L 92/63 L Pulse Oximetry 100 Oxygen Delivery 11/01/23 19:25 11/01/23 19:26 11/01/23 20:00 Temperature Pulse Rate Respiratory Rate Blood Pressure 93/58 L 98/63 L Pulse Oximetry Oxygen Delivery Room Air 11/01/23 23:58 11/02/23 00:00 11/01/23 20:00 Temperature 98.0 F Pulse Rate 94 93 Respiratory Rate 15 Blood Pressure 91/58 L Pulse Oximetry 93 Oxygen Delivery Room Air 11/01/23 22:00 11/02/23 00:00 11/02/23 02:00 Temperature Pulse Rate 94 88 87 Respiratory Rate Blood Pressure Pulse Oximetry Oxygen Delivery 11/02/23 04:00 11/02/23 04:42 11/02/23 04:00 Temperature 98.1 F Pulse Rate 87 96 Respiratory Rate 20 Blood Pressure 94/64 L Pulse Oximetry 99 Oxygen Delivery Room Air 11/02/23 06:00 11/02/23 08:00 11/02/23 08:10 Temperature 98.4 F Pulse Rate 95 97 Respiratory Rate 18 Blood Pressure 91/64 L 102/45 L Pulse Oximetry 100 Oxygen Delivery 11/02/23 08:00 11/02/23 08:00 11/02/23 10:00 Temperature Pulse Rate 100 95 Respiratory Rate Blood Pressure Pulse Oximetry Oxygen Delivery Room Air 11/02/23 11:29 11/02/23 11:58 11/02/23 12:00 Temperature 97.9 F Pulse Rate 89 95 Respiratory Rate 18 Blood Pressure 99/61 L Pulse Oximetry 99 Oxygen Delivery Room Air 11/02/23 12:00 11/02/23 14:00 0
[2023-11-02] MEDS: ESCITALOPRAM OXALATE 10 MG TABLET PO (20:04)
[2023-11-02] MEDS: traZODone HCL 50 MG TABLET PO (20:04)
[2023-11-02 20:27] LABS: Glucose Point of Care 162 mg/dl (65-105)
[2023-11-03] VITALS (22 sets, daily range): BP systolic 88–126; BP diastolic 51–92; PULSE 62–100; RESP 16–22; TEMP 36.4–36.8; O2SAT 95–100
[2023-11-03 04:44] LABS: Basophils Percent Auto 0.2 % (0.2-1.2); Eosinophils Absolute Auto 0.2 K/mm3 (0-0.3); Hematocrit 34.5 % (42.0-52.0); Immature Granulocyte Absolute 0.02 K/mm3 (0.00-0.031); Immature Granulocyte Percent A 0.4 % (0-0.5); Lymphocytes Absolute Auto 0.87 K/mm3 (0.9-3.2); Lymphocytes Percent Auto 16.3 % (18.3-44.2); Mean Corpuscular HGB Conc 31.9 g/dl (32-36); Mean Corpuscular Hemoglobin 28.6 pg (26-34); Mean Corpuscular Volume 89.8 fl (80-100); Mean Platelet Volume 10.3 fl (7.4-10.4); Monocytes Absolute Auto 0.7 K/mm3 (0.1-0.6); Monocytes Percent Auto 12.7 % (2.6-8.5); Neutrophils Absolute Auto 3.6 K/mm3 (1.3-6.7); Neutrophils Percent Auto 67.4 % (45.5-73.1); Platelet Count Result 213 k/mm3 (150-375); Red Blood Count 3.84 M/mm3 (4.6-6.20); Red Cell Distribution Width 15.9 % (11.5-14.5); White Blood Count 5.3 K/mm3 (4.5-10.0)
[2023-11-03 04:54] LABS: Alanine Aminotransferase 20 U/L (6-50); Albumin Level 3.3 g/dL (3.5-5.1); Alkaline Phosphatase 125 U/L (38-126); Anion Gap 6 mmol/L (8-16); Aspartate Amino Transferase 25 U/L (17-59); Bilirubin,Total 1.5 mg/dL (0.2-1.3); Blood Urea Nitrogen 22 mg/dL (9-20); Calcium 8.8 mg/dL (8.4-10.2); Carbon Dioxide 33 mmol/L (22-30); Chloride 95 mmol/L (98-107); Estimated CRCL calculation 59 ml/min; Estimated Glomerular Filt Rate > 60; Glucose 127 mg/dL (65-110); Potassium 3.8 mmol/L (3.4-5.0); Sodium 134 mmol/L (137-145)
[2023-11-03 08:17] LABS: Glucose Point of Care 139 mg/dl (65-105)
--- NOTE | 2023-11-03 09:11 | PM.PNCARD ---
Progress Note: A&P Assessment and Plan (1) Ischemic cardiomyopathy: Code(s): I25.5 - Ischemic cardiomyopathy Status: Acute Assessment and Plan: EF 17% by most recent echo. Continue guideline directed medical therapy with Entresto, Toprol-XL, spironolactone. He is not on Jardiance because he is on Rybelsus for his diabetes. He has declined life vest in the past. However, since he has been on medical therapy for nearly 6 months now with no improvement of his systolic function, will need to consider ICD. He needs to be seen by the [facility] at [place] for long-term management of his severe cardiomyopathy including durable options such as heart transplant or LVAD. (2) CHF exacerbation: Qualifiers: Heart failure type: systolic Qualified Code(s): I50.23 - Acute on chronic systolic (congestive) heart failure Code(s): I50.9 - Heart failure, unspecified Status: Acute Assessment and Plan: Acute on chronic systolic heart failure despite increased dose of diuretics at home. Increase furosemide to 40 mg IV b.i.d.. Creatinine 1.0 again today. Continue to monitor BMP daily Continue inotrope support in the form of dobutamine 2.5 mcg/kg/minute Thoracentesis pending - Radiology requesting a hold on Plavix and Lovenox. We cannot hold plavix at this time because patient had multiple stents placed in August, therefore he is at high risk for abrupt stent thrombosis. Will reach out to radiology to discuss possibility of proceeding with thoracentesis while on plavix. Strict intake and output Daily weights. States his dry weight is 160lbs Low-sodium diet CHF counseling (3) Pleural effusion: Code(s): J90 - Pleural effusion, not elsewhere classified Status: Acute Assessment and Plan: Needs thoracentesis (4) Hypotension: Qualifiers: Hypotension type: unspecified hypotension type Qualified Code(s): I95.9 - Hypotension, unspecified Code(s): I95.9 - Hypotension, unspecified Status: Acute Assessment and Plan: He is chronically hypotensive related to his poor cardiac output and medical therapy for his cardiomyopathy. He is asymptomatic. (5) Hyperlipidemia: Code(s): E78.5 - Hyperlipidemia, unspecified Status: Acute Assessment and Plan: Continue statin Subjective Date/time seen: 11/03/23 09:11 Interval history: paul Coates is a 68-year-old with hypertension, hyperlipidemia, coronary artery disease, and ischemic cardiomyopathy with an EF of 17%.? He was initially seen by Dr. Jewell in May of 2023 for CHF and was found to have severe LV systolic dysfunction with an EF of 25%.? He underwent cardiac catheterization by Dr. Baires on 07/28/2023 and was found to have a diffusely diseased LAD with 80-90% stenosis in the mid LAD at the origin of the 2nd diagonal branch.? The left circumflex was 100% occluded as origin, trunk of the RCA was free of disease, RPDA patent and free of significant disease, RPL totally occluded at the origin.? He was referred to [place] for high risk PCI and did have successful Impella supported PCI.? He was seen in the office for follow-up and was felt to be volume overloaded despite increasing oral diuretics over the past week.? Therefore, he was sent to the emergency department and admitted for decompensated heart failure Date of service 11/01/2023: Breathing a little easier. Abdominal distension has slightly improved. No chest pain Date of service 11/02/2023: Still feels a bit better but still has significant abdominal distention and lower extremity edema. No chest pain Date of service 11/03/2023: Abdominal and lower extremity edema persistent, slowly improving. Less short of breath at rest, still has orthopnea. Review of Systems Review of Systems: All systems reviewed & are unremarkable except as noted in HPI and below Exam Const: General: comfortable, no acute distress
[2023-11-03] MEDS: DOBUTamine 250 MG/D5W 250 ML 250 MG/250 ML BAG 11.25 MG IV CONT (09:49)
--- NOTE | 2023-11-03 10:11 | PM.IMPN ---
Progress Note: A&P Assessment and Plan (1) Volume overload: Code(s): E87.70 - Fluid overload, unspecified Status: Acute Assessment and Plan: Appreciate cardiology consultation, continue IV diuresis with Lasix 40 mg q.12 Strict I&Os, daily BMP, daily weights, low-sodium diet -Thoracentesis scheduled due to pleural effusions, hold lovenox and plavix 11/01: Improving, continue current management 11/02: Continue diuresis, add dobutamine, appreciate Cardiology management 11/03: Cont current management, appreciate cardiology consultation, diuresing ok, only 830 out yesterday, 500 out so far today (2) Ischemic cardiomyopathy: Code(s): I25.5 - Ischemic cardiomyopathy Status: Acute Assessment and Plan: See above Will need outpatient management at the [facility] and consideration for ICD (3) Coronary artery disease: Code(s): I25.10 - Atherosclerotic heart disease of [place] coronary artery without angina pectoris Status: Acute Assessment and Plan: See above (4) Hypotension: Qualifiers: Hypotension type: unspecified hypotension type Qualified Code(s): I95.9 - Hypotension, unspecified Code(s): I95.9 - Hypotension, unspecified Status: Acute Assessment and Plan: Stable (5) Type 2 diabetes mellitus: Code(s): E11.9 - Type 2 diabetes mellitus without complications Status: Acute Assessment and Plan: Accu-Cheks, sliding scale insulin, blood glucose reviewed 11/03 Check A1c Plan DVT prophylaxis with Lovenox GI prophylaxis not indicated Code status full code Subjective Date/time seen: 11/03/23 10:11 Interval history: 68-year-old male with ischemic cardiomyopathy and an EF of 17% is presenting with heart failure exacerbation. No overnight events noted. No chest pain or shortness of breath. No nausea, vomiting or diarrhea. No fevers or chills. Patient states he feels about the same. Review of Systems Review of Systems: 12 point review of systems was assessed and was negative except as noted in the HPI Exam Narrative: General: No acute distress, alert and oriented per baseline HEENT: Atraumatic, normocephalic, mucous membranes moist CV: Regular rate and rhythm, S1, S2 Lungs: Clear to auscultation bilaterally, no rales or crackles noted, no wheezes, good air entry Abdomen: Soft, nontender, nondistended Extremities: Normal to inspection, 1+ pitting edema B/L LE Skin: No rashes noted, no lesions or wounds seen Psych: Euthymic, normal affect Objective Data Vital Signs Vital Signs: Vital Signs - 24 hr 11/02/23 11:29 11/02/23 11:58 11/02/23 12:00 Temperature 97.9 F Pulse Rate 89 95 Respiratory Rate 18 Blood Pressure 99/61 L Pulse Oximetry 99 Oxygen Delivery Room Air 11/02/23 12:00 11/02/23 14:00 11/02/23 16:00 Temperature 97.5 F L Pulse Rate 97 87 98 Respiratory Rate 18 Blood Pressure 105/67 Pulse Oximetry 100 Oxygen Delivery 11/02/23 16:00 11/02/23 16:00 11/02/23 18:00 Temperature Pulse Rate 90 96 Respiratory Rate Blood Pressure Pulse Oximetry Oxygen Delivery Room Air 11/02/23 20:00 11/02/23 20:00 11/02/23 20:00 Temperature 97.4 F L Pulse Rate 95 94 Respiratory Rate 18 Blood Pressure 98/61 L Pulse Oximetry 94 Oxygen Delivery Room Air 11/02/23 22:00 11/02/23 20:00 11/02/23 23:54 Temperature Pulse Rate 94 94 Respiratory Rate Blood Pressure Pulse Oximetry Oxygen Delivery Room Air 11/03/23 00:00 11/03/23 00:00 11/03/23 00:00 Temperature 97.6 F Pulse Rate 91 90 89 Respiratory Rate 18 Blood Pressure 95/55 L Pulse Oximetry 95 Oxygen Delivery 11/03/23 02:00 11/03/23 04:00 11/03/23 04:53 Temperature Pulse Rate 90 86 89 Respiratory Rate Blood Pressure Pulse Oximetry Oxygen Delivery 11/03/23 04:00 11/03/23 05:21
[2023-11-03] MEDS: ATORVASTATIN 40 MG TABLET PO (10:14)
[2023-11-03] MEDS: SACUBITRIL/VALSARTAN 24-26 MG TABLET 1 TAB PO ×2 (10:14→16:52)
[2023-11-03] MEDS: ASCORBIC ACID 500 MG TABLET PO (10:14)
[2023-11-03] MEDS: FUROSEMIDE INJ 40 MG/4 ML VIAL IV PUSH (10:14)
[2023-11-03] MEDS: BENZONATATE 100 MG CAPSULE PO ×3 (10:15→16:52)
[2023-11-03] MEDS: THIAMINE HCL 100 MG TABLET PO (10:15)
[2023-11-03] MEDS: EMPAGLIFLOZIN 10 MG TABLET PO (10:16)
[2023-11-03] MEDS: METOPROLOL SUCCINATE EXT REL 25 MG TABCR PO (10:16)
[2023-11-03] MEDS: SPIRONOLACTONE 25 MG TABLET PO (10:16)
[2023-11-03] MEDS: POTASSIUM CHLORIDE 20 MEQ ER TABLET PO (10:17)
[2023-11-03 11:21] LABS: Hemoglobin A1C 8.4 % (<5.7)
[2023-11-03 11:53] LABS: Glucose Point of Care 130 mg/dl (65-105)
[2023-11-03 16:25] LABS: Glucose Point of Care 154 mg/dl (65-105)
[2023-11-03] MEDS: FUROSEMIDE INJ 40 MG/4 ML VIAL 60 MG IV PUSH (16:52)
[2023-11-03 20:36] LABS: Glucose Point of Care 134 mg/dl (65-105)
[2023-11-03] MEDS: ESCITALOPRAM OXALATE 10 MG TABLET PO (21:29)
[2023-11-03] MEDS: traZODone HCL 50 MG TABLET PO (21:29)
[2023-11-04] VITALS (22 sets, daily range): BP systolic 70–125; BP diastolic 48–97; PULSE 84–107; RESP 16–18; TEMP 36.5–37; O2SAT 94–100
[2023-11-04 05:21] LABS: Basophils Percent Auto 0.2 % (0.2-1.2); Eosinophils Absolute Auto 0.2 K/mm3 (0-0.3); Eosinophils Percent Auto 3.4 % (0-4.4); Hematocrit 36.1 % (42.0-52.0); Hemoglobin 11.5 g/dL (14.0-18.0); Immature Granulocyte Absolute 0.02 K/mm3 (0.00-0.031); Immature Granulocyte Percent A 0.4 % (0-0.5); Lymphocytes Absolute Auto 0.88 K/mm3 (0.9-3.2); Lymphocytes Percent Auto 16.5 % (18.3-44.2); Mean Corpuscular HGB Conc 31.9 g/dl (32-36); Mean Corpuscular Hemoglobin 28.3 pg (26-34); Mean Corpuscular Volume 88.7 fl (80-100); Mean Platelet Volume 10.2 fl (7.4-10.4); Monocytes Absolute Auto 0.5 K/mm3 (0.1-0.6); Neutrophils Absolute Auto 3.7 K/mm3 (1.3-6.7); Neutrophils Percent Auto 69.5 % (45.5-73.1); Platelet Count Result 235 k/mm3 (150-375); Red Blood Count 4.07 M/mm3 (4.6-6.20); Red Cell Distribution Width 15.8 % (11.5-14.5); White Blood Count 5.3 K/mm3 (4.5-10.0)
[2023-11-04 05:34] LABS: Alanine Aminotransferase 20 U/L (6-50); Albumin Level 3.5 g/dL (3.5-5.1); Alkaline Phosphatase 121 U/L (38-126); Anion Gap 7 mmol/L (8-16); Aspartate Amino Transferase 27 U/L (17-59); Bilirubin,Total 1.6 mg/dL (0.2-1.3); Blood Urea Nitrogen 22 mg/dL (9-20); Carbon Dioxide 33 mmol/L (22-30); Chloride 94 mmol/L (98-107); Estimated CRCL calculation 59 ml/min; Estimated Glomerular Filt Rate > 60; Glucose 123 mg/dL (65-110); Potassium 3.9 mmol/L (3.4-5.0); Sodium 134 mmol/L (137-145)
[2023-11-04 07:44] LABS: Glucose Point of Care 116 mg/dl (65-105)
[2023-11-04] MEDS: BENZONATATE 100 MG CAPSULE PO ×3 (08:25→17:07)
[2023-11-04] MEDS: FUROSEMIDE INJ 40 MG/4 ML VIAL 60 MG IV PUSH (08:25)
[2023-11-04] MEDS: EMPAGLIFLOZIN 10 MG TABLET PO (08:25)
[2023-11-04] MEDS: ASPIRIN 81 MG ENTERIC TABLET PO (08:25)
[2023-11-04] MEDS: METOPROLOL SUCCINATE EXT REL 25 MG TABCR PO (08:25)
[2023-11-04] MEDS: ATORVASTATIN 40 MG TABLET PO (08:25)
[2023-11-04] MEDS: SACUBITRIL/VALSARTAN 24-26 MG TABLET 1 TAB PO (08:25)
[2023-11-04] MEDS: THIAMINE HCL 100 MG TABLET PO (08:25)
[2023-11-04] MEDS: SPIRONOLACTONE 25 MG TABLET PO (08:25)
[2023-11-04] MEDS: ASCORBIC ACID 500 MG TABLET PO (08:25)
[2023-11-04] MEDS: POTASSIUM CHLORIDE 20 MEQ ER TABLET PO (08:25)
[2023-11-04] MEDS: DOBUTamine 250 MG/D5W 250 ML 250 MG/250 ML BAG 11.25 MG IV CONT (10:39)
--- NOTE | 2023-11-04 11:27 | PM.PNCARD ---
Progress Note: A&P Assessment and Plan (1) Ischemic cardiomyopathy: Code(s): I25.5 - Ischemic cardiomyopathy Status: Acute Assessment and Plan: EF 17% by most recent echo. Continue guideline directed medical therapy with Entresto, Toprol-XL, spironolactone. He is not on Jardiance because he is on Rybelsus for his diabetes. He has declined Life Vest in the past. However, since he has been on medical therapy for nearly 6 months now with no improvement of his systolic function, will need to consider ICD. He needs to be seen by the [facility] at [place] for long-term management of his severe cardiomyopathy including durable options such as heart transplant or LVAD. Unable to titrate meds further due to low BP (2) CHF exacerbation: Qualifiers: Heart failure type: systolic Qualified Code(s): I50.23 - Acute on chronic systolic (congestive) heart failure Code(s): I50.9 - Heart failure, unspecified Status: Acute Assessment and Plan: Acute on chronic systolic heart failure despite increased dose of diuretics at home. Cont increased dose of furosemide 40 mg IV b.i.d.. REnal fxn stable. Continue to monitor BMP daily Continue inotrope support in the form of dobutamine 2.5 mcg/kg/minute. Can increase to 5 mcg but pt reports diuresis and improvement, so will cont same. Thoracentesis tosay- Radiology requesting a hold on Plavix and Lovenox for one day. Unable to hold Plavix for an extended time because patient had multiple stents placed in August, therefore he is at high risk for abrupt stent thrombosis. Strict intake and output Daily weights. States his dry weight is 160lbs Low-sodium diet CHF counseling (3) Pleural effusion: Code(s): J90 - Pleural effusion, not elsewhere classified Status: Acute Assessment and Plan: Thoracentesis today. (4) Hypotension: Qualifiers: Hypotension type: unspecified hypotension type Qualified Code(s): I95.9 - Hypotension, unspecified Code(s): I95.9 - Hypotension, unspecified Status: Acute Assessment and Plan: He is chronically hypotensive related to his poor cardiac output and medical therapy for his cardiomyopathy. He is asymptomatic. (5) Hyperlipidemia: Code(s): E78.5 - Hyperlipidemia, unspecified Status: Acute Assessment and Plan: Continue statin Subjective Date/time seen: 11/04/23 11:27 Interval history: paul Coates is a 68-year-old with hypertension, hyperlipidemia, coronary artery disease, and ischemic cardiomyopathy with an EF of 17%.? He was initially seen by Dr. Jewell in May of 2023 for CHF and was found to have severe LV systolic dysfunction with an EF of 25%.? He underwent cardiac catheterization by Dr. Baires on 07/28/2023 and was found to have a diffusely diseased LAD with 80-90% stenosis in the mid LAD at the origin of the 2nd diagonal branch.? The left circumflex was 100% occluded as origin, trunk of the RCA was free of disease, RPDA patent and free of significant disease, RPL totally occluded at the origin.? He was referred to [place] for high risk PCI and did have successful Impella supported PCI.? He was seen in the office for follow-up and was felt to be volume overloaded despite increasing oral diuretics over the past week.? Therefore, he was sent to the emergency department and admitted for decompensated heart failure Date of service 11/01/2023: Breathing a little easier. Abdominal distension has slightly improved. No chest pain. Continue furosemide 40 mg IV push b.i.d. Date of service 11/02/2023: Still feels a bit better but still has significant abdominal distention and lower extremity edema. No chest pain. Dobutamine added. Date of service 11/03/2023: Abdominal and lower extremity edema persistent, slowly improving. Less short of breath at rest, still has orthopnea. Scheduled thoracentesis. Date of service
[2023-11-04 11:30] LABS: Glucose Point of Care 203 mg/dl (65-105)
[2023-11-04] MEDS: SODIUM CHLORIDE 0.9% IV 200 ML IV CONT (15:50)
[2023-11-04 16:28] LABS: Glucose Point of Care 113 mg/dl (65-105)
[2023-11-04] MEDS: SODIUM CHLORIDE 0.9% IV 100 ML IV CONT (17:06)
[2023-11-04] MEDS: ALBUMIN HUMAN 25% 25 GM/100 ML 100 ML IVPB (18:09)
[2023-11-04] MEDS: SODIUM CHLORIDE 0.9% IV 250 ML IV CONT (18:09)
[2023-11-04 19:44] LABS: Glucose Point of Care 163 mg/dl (65-105)
--- NOTE | 2023-11-04 19:45 | PM.IMPN ---
Progress Note: A&P Assessment and Plan (1) Volume overload: Code(s): E87.70 - Fluid overload, unspecified Status: Acute Assessment and Plan: Appreciate cardiology consultation, continue IV diuresis with Lasix 40 mg q.12 Strict I&Os, daily BMP, daily weights, low-sodium diet -Thoracentesis scheduled due to pleural effusions, hold lovenox and plavix 11/01: Improving, continue current management 11/02: Continue diuresis, add dobutamine, appreciate Cardiology management 11/03: Cont current management, appreciate cardiology consultation, diuresing ok, only 830 out yesterday, 500 out so far today 11/04: thoro today, cont diuresis per cardio with inotropes (2) Ischemic cardiomyopathy: Code(s): I25.5 - Ischemic cardiomyopathy Status: Acute Assessment and Plan: See above Will need outpatient management at the [facility] and consideration for ICD (3) Coronary artery disease: Code(s): I25.10 - Atherosclerotic heart disease of [place] coronary artery without angina pectoris Status: Acute Assessment and Plan: See above (4) Hypotension: Qualifiers: Hypotension type: unspecified hypotension type Qualified Code(s): I95.9 - Hypotension, unspecified Code(s): I95.9 - Hypotension, unspecified Status: Acute Assessment and Plan: Stable (5) Type 2 diabetes mellitus: Code(s): E11.9 - Type 2 diabetes mellitus without complications Status: Acute Assessment and Plan: Accu-Cheks, sliding scale insulin, blood glucose reviewed 11/04 Check A1c Plan DVT prophylaxis with Lovenox GI prophylaxis not indicated Code status full code Subjective Date/time seen: 11/04/23 19:45 Interval history: 68-year-old male with ischemic cardiomyopathy and an EF of 17% is presenting with heart failure exacerbation. No overnight events noted. No chest pain or shortness of breath. No nausea, vomiting or diarrhea. No fevers or chills. Patient states he feels about the same. Review of Systems Review of Systems: 12 point review of systems was assessed and was negative except as noted in the HPI Exam Narrative: General: No acute distress, alert and oriented per baseline HEENT: Atraumatic, normocephalic, mucous membranes moist CV: Regular rate and rhythm, S1, S2 Lungs: Clear to auscultation bilaterally, slightly diminished at bases Abdomen: Soft, nontender, nondistended Extremities: Normal to inspection, 1+ pitting edema B/L LE Skin: No rashes noted, no lesions or wounds seen Psych: Euthymic, normal affect Objective Data Vital Signs Vital Signs: Vital Signs - 24 hr 11/03/23 19:48 11/03/23 20:00 11/03/23 20:00 Temperature 97.5 F L Pulse Rate 94 94 96 Respiratory Rate 16 16 Blood Pressure 94/67 L 94/67 L Pulse Oximetry 100 100 Oxygen Delivery Room Air 11/03/23 20:00 11/03/23 22:00 11/03/23 23:48 Temperature 97.5 F L Pulse Rate 96 92 95 Respiratory Rate 16 Blood Pressure 95/66 L Pulse Oximetry 95 Oxygen Delivery 11/04/23 00:00 11/04/23 00:00 11/04/23 02:00 Temperature Pulse Rate 95 89 91 Respiratory Rate 16 Blood Pressure Pulse Oximetry 95 Oxygen Delivery Room Air 11/04/23 04:00 11/04/23 00:00 11/04/23 04:00 Temperature Pulse Rate 91 91 87 Respiratory Rate 16 Blood Pressure 95/66 L Pulse Oximetry 95 Oxygen Delivery Room Air 11/04/23 04:00 11/04/23 06:00 11/04/23 07:34 Temperature 97.8 F 98.6 F Pulse Rate 95 90 92 Respiratory Rate 18 18 Blood Pressure 125/97 H 97/63 L Pulse Oximetry 94 100 Oxygen Delivery 11/04/23 07:35 11/04/23 07:35 11/04/23 08:25 Temperature Pulse Rate 94 Respiratory Rate Blood Pressure 97/63 L 110/93 H Pulse Oximetry Oxygen Delivery 11/04/23 08:00 11/04/23 08:00 11/04/23 10:00 Temperature Pulse Rate 91 107 H Respiratory Rate Blood Pressure P
[2023-11-04] MEDS: traZODone HCL 50 MG TABLET PO (21:25)
[2023-11-04] MEDS: ESCITALOPRAM OXALATE 10 MG TABLET PO (21:25)
[2023-11-05] VITALS (28 sets, daily range): BP systolic 80–154; BP diastolic 51–98; PULSE 86–105; RESP 15–18; TEMP 36.1–36.8; O2SAT 92–100
[2023-11-05] MEDS: DOBUTamine 250 MG/D5W 250 ML 250 MG/250 ML BAG 22.5 MG IV CONT ×3 (01:25→22:52)
[2023-11-05 04:48] LABS: Basophils Percent Auto 0.2 % (0.2-1.2); Eosinophils Absolute Auto 0.1 K/mm3 (0-0.3); Eosinophils Percent Auto 2.1 % (0-4.4); Hematocrit 32.7 % (42.0-52.0); Hemoglobin 10.2 g/dL (14.0-18.0); Immature Granulocyte Absolute 0.02 K/mm3 (0.00-0.031); Immature Granulocyte Percent A 0.3 % (0-0.5); Lymphocytes Absolute Auto 0.89 K/mm3 (0.9-3.2); Lymphocytes Percent Auto 15.4 % (18.3-44.2); Mean Corpuscular HGB Conc 31.2 g/dl (32-36); Mean Corpuscular Hemoglobin 28.1 pg (26-34); Mean Corpuscular Volume 90.1 fl (80-100); Mean Platelet Volume 10.5 fl (7.4-10.4); Monocytes Absolute Auto 0.6 K/mm3 (0.1-0.6); Monocytes Percent Auto 9.7 % (2.6-8.5); Neutrophils Absolute Auto 4.2 K/mm3 (1.3-6.7); Neutrophils Percent Auto 72.3 % (45.5-73.1); Platelet Count Result 205 k/mm3 (150-375); Red Blood Count 3.63 M/mm3 (4.6-6.20); Red Cell Distribution Width 15.9 % (11.5-14.5); White Blood Count 5.8 K/mm3 (4.5-10.0)
[2023-11-05 05:01] LABS: Alanine Aminotransferase 21 U/L (6-50); Albumin Level 3.6 g/dL (3.5-5.1); Alkaline Phosphatase 110 U/L (38-126); Anion Gap 5 mmol/L (8-16); Aspartate Amino Transferase 28 U/L (17-59); Bilirubin,Total 1.4 mg/dL (0.2-1.3); Blood Urea Nitrogen 23 mg/dL (9-20); Calcium 8.7 mg/dL (8.4-10.2); Carbon Dioxide 33 mmol/L (22-30); Chloride 97 mmol/L (98-107); Estimated CRCL calculation 54 ml/min; Estimated Glomerular Filt Rate > 60; Glucose 126 mg/dL (65-110); Potassium 4.1 mmol/L (3.4-5.0); Sodium 135 mmol/L (137-145)
[2023-11-05 08:16] LABS: Glucose Point of Care 158 mg/dl (65-105)
--- NOTE | 2023-11-05 08:48 | PM.PNCARD ---
Progress Note: A&P Assessment and Plan (1) Ischemic cardiomyopathy: Code(s): I25.5 - Ischemic cardiomyopathy Status: Acute Assessment and Plan: EF 17% by most recent echo. Continue guideline directed medical therapy with Entresto, Toprol-XL, spironolactone. He is not on Jardiance because he is on Rybelsus for his diabetes. He has declined Life Vest in the past. However, since he has been on medical therapy for nearly 6 months now with no improvement of his systolic function, will need to consider ICD. He needs to be seen by the [facility] at [place] for long-term management of his severe cardiomyopathy including durable options such as heart transplant or LVAD. Unable to titrate meds further due to low BP (2) CHF exacerbation: Qualifiers: Heart failure type: systolic Qualified Code(s): I50.23 - Acute on chronic systolic (congestive) heart failure Code(s): I50.9 - Heart failure, unspecified Status: Acute Assessment and Plan: Acute on chronic systolic heart failure despite increased dose of diuretics at home. Cont reduced dose of furosemide 40 mg IV b.i.d.. Renal fxn stable. Continue to monitor BMP daily Continue inotrope support in the form of dobutamine 5.0 mcg/kg/minute. Strict intake and output Daily weights. States his dry weight is 160lbs Low-sodium diet CHF counseling (3) Pleural effusion: Code(s): J90 - Pleural effusion, not elsewhere classified Status: Acute Assessment and Plan: Thoracentesis 11/04/2023 of 1 L. (4) Hypotension: Qualifiers: Hypotension type: unspecified hypotension type Qualified Code(s): I95.9 - Hypotension, unspecified Code(s): I95.9 - Hypotension, unspecified Status: Acute Assessment and Plan: He is chronically hypotensive related to his poor cardiac output and medical therapy for his cardiomyopathy. He is asymptomatic, but some meds were held recently because of worsening hypotension and patient required some IV fluids when his SBP was in the 70s yesterday after his thoracentesis. --Hopefully resume diuretic; resume other meds if SBP > 95 mmHg. May need to stagger meds. . (5) Hyperlipidemia: Code(s): E78.5 - Hyperlipidemia, unspecified Status: Acute Assessment and Plan: Continue statin Subjective Date/time seen: 11/05/23 08:48 Interval history: Dre Coates is a 68-year-old with hypertension, hyperlipidemia, coronary artery disease, and ischemic cardiomyopathy with an EF of 17%.? He was initially seen by Dr. Jewell in May of 2023 for CHF and was found to have severe LV systolic dysfunction with an EF of 25%.? He underwent cardiac catheterization by Dr. Baires on 07/28/2023 and was found to have a diffusely diseased LAD with 80-90% stenosis in the mid LAD at the origin of the 2nd diagonal branch.? The left circumflex was 100% occluded as origin, trunk of the RCA was free of disease, RPDA patent and free of significant disease, RPL totally occluded at the origin.? He was referred to [place] for high risk PCI and did have successful Impella supported PCI.? He was seen in the office for follow-up and was felt to be volume overloaded despite increasing oral diuretics over the past week.? Therefore, he was sent to the emergency department and admitted for decompensated heart failure Date of service 11/01/2023: Breathing a little easier. Abdominal distension has slightly improved. No chest pain. Continue furosemide 40 mg IV push b.i.d. Date of service 11/02/2023: Still feels a bit better but still has significant abdominal distention and lower extremity edema. No chest pain. Dobutamine added. Date of service 11/03/2023: Abdominal and lower extremity edema persistent, slowly improving. Less short of breath at rest, still has orthopnea. Scheduled thoracentesis. Date of service 11/04/2023: Ongoing LAND and orthopnea. Heart rate 90-100,
[2023-11-05] MEDS: ASCORBIC ACID 500 MG TABLET PO (09:36)
[2023-11-05] MEDS: THIAMINE HCL 100 MG TABLET PO (09:36)
[2023-11-05] MEDS: ATORVASTATIN 40 MG TABLET PO (09:36)
[2023-11-05] MEDS: POTASSIUM CHLORIDE 20 MEQ ER TABLET PO (09:36)
[2023-11-05] MEDS: SPIRONOLACTONE 25 MG TABLET PO (09:37)
[2023-11-05] MEDS: EMPAGLIFLOZIN 10 MG TABLET PO (09:37)
[2023-11-05] MEDS: BENZONATATE 100 MG CAPSULE PO ×3 (09:37→16:49)
[2023-11-05] MEDS: ASPIRIN 81 MG ENTERIC TABLET PO (09:37)
--- NOTE | 2023-11-05 09:58 | PC.NURSE ---
Notified Dr. Zaidi of pt's BP of 90/57. New order to hold Metoprolol, Entresto and Furosemide this AM. MD will edit orders with parameters, and decrease dosage of Furosemide to 40mtg IVP BID.
[2023-11-05] MEDS: ENOXAPARIN 40 MG/0.4 ML SYRINGE SUB-Q (10:01)
[2023-11-05] MEDS: CLOPIDOGREL BISULFATE 75 MG TABLET PO (10:01)
[2023-11-05 13:10] LABS: Glucose Point of Care 144 mg/dl (65-105)
--- NOTE | 2023-11-05 14:06 | PM.IMPN ---
Progress Note: A&P Assessment and Plan (1) CHF exacerbation: Qualifiers: Heart failure type: systolic Qualified Code(s): I50.23 - Acute on chronic systolic (congestive) heart failure Code(s): I50.9 - Heart failure, unspecified Status: Acute Assessment and Plan: Patient presents with SOB and found to have acute on chronic systolic and diastolic CHF. Echo in Jun 2023 showing EF 20-25% with grade I diastolic dysfunction. Cardiology consulted and appreciate their input. Chest CTA showing no PE but bilateral pleural effusion (L>>R), diffuse patchy groundglass infiltrates, ascites with nodular densities of the omentum Dobutamine started. Lasix IV started. Tolerating Spironolactone, Torpol XL, Empagliflozin and Entresto. He has refused LifeVest in the past. Thoracentesis performed on 11/04/23 with removal of 1L of dark brownish fluid. No studies sent. Continue IV diuresis with Lasix as tolerated. Strict I&Os, daily BMP, daily weights, low-sodium diet (2) Ischemic cardiomyopathy: Code(s): I25.5 - Ischemic cardiomyopathy Status: Acute Assessment and Plan: As above. [facility] 07/28/23 showing right coronary dominant circulation with severe ischemic cardiomyopathy, total occlusion of the proximal circumflex as well as total occlusion of the RPL branch the right coronary. He had diffuse disease and heavily calcified LAD with high-grade stenosis in the midportion and severe LV systolic dysfunction with EF of 20%. Will need outpatient management at the [facility] and consideration for ICD (3) Coronary artery disease: Code(s): I25.10 - Atherosclerotic heart disease of [place] coronary artery without angina pectoris Status: Acute Assessment and Plan: As above (4) Hypotension: Qualifiers: Hypotension type: unspecified hypotension type Qualified Code(s): I95.9 - Hypotension, unspecified Code(s): I95.9 - Hypotension, unspecified Status: Acute Assessment and Plan: BP soft at times. Remains on Dobutamine. (5) Type 2 diabetes mellitus: Code(s): E11.9 - Type 2 diabetes mellitus without complications Status: Acute Assessment and Plan: A1c 8.4. The patient's blood glucose was reviewed on 11/05 Glucose remains well controlled. Continue AccuCheks covering with sliding scale. Hypoglycemia protocol available as needed. Continue to monitor Plan DVT prophylaxis with Lovenox Code status full code Subjective Date/time seen: 11/05/23 14:06 Interval history: 68-year-old male with ischemic cardiomyopathy and an EF of 17% is presenting with heart failure exacerbation. Assuming care. Chart reviewed. He has been having stool accidents since admission. No hard stools b/w the bouts of diarrhea. Cough better. No abd pain. No crampy abd pain. No CP. Exam Narrative: AF 97.7 92/54 92 15 98% ra Gen - NARD Chest - decrease BS in left base with crackles mid-lower left lung field. Right lung clear. CV - RRR S1/S2. Tele showing one brief run of ATach Abd - Soft, NT/ND, Positive BS Back - well healed scar right mid back Ext - 1-2+ pitting pedal edema Neuro - Alert and appropriate Psych - Nml mood and affect Skin - Warm and dry. right great toe dressing clean and dry Objective Data Vital Signs Vital Signs: Vital Signs - 24 hr 11/04/23 15:15 11/04/23 16:19 11/04/23 16:00 Temperature 98.2 F 98.2 F Pulse Rate 87 93 Respiratory Rate 18 18 Blood Pressure 77/48 L 70/48 L Pulse Oximetry 98 99 Oxygen Delivery Room Air 11/04/23 17:24 11/04/23 16:50 11/04/23 18:00 Temperature Pulse Rate 88 90 92 Respiratory Rate Blood Pressure Pulse Oximetry Oxygen Delivery 11/04/23 19:35 11/04/23 20:00 11/04/23 20:00 Temperature 97.7 F Pulse Rate 85 85 94 Respiratory Rate 18 18 Blood Pressure 90/58 L Pulse Oximetry 99 Oxygen Delivery Room Air 11/04/23
[2023-11-05] MEDS: SACUBITRIL/VALSARTAN 24-26 MG TABLET 1 TAB PO (16:49)
[2023-11-05] MEDS: FUROSEMIDE INJ 40 MG/4 ML VIAL IV PUSH (16:49)
[2023-11-05 16:57] LABS: Glucose Point of Care 120 mg/dl (65-105)
[2023-11-05 20:28] LABS: Glucose Point of Care 161 mg/dl (65-105)
[2023-11-05] MEDS: ESCITALOPRAM OXALATE 10 MG TABLET PO (20:33)
[2023-11-05] MEDS: traZODone HCL 50 MG TABLET PO (20:34)
[2023-11-05] MEDS: metroNIDAZOLE 500 MG TABLET PO (22:51)
[2023-11-06] VITALS (24 sets, daily range): BP systolic 92–108; BP diastolic 46–77; PULSE 90–103; RESP 16–20; TEMP 36.1–36.5; O2SAT 92–98
[2023-11-06 04:59] LABS: Basophils Percent Auto 0.2 % (0.2-1.2); Eosinophils Absolute Auto 0.2 K/mm3 (0-0.3); Eosinophils Percent Auto 3.8 % (0-4.4); Hematocrit 34.6 % (42.0-52.0); Hemoglobin 10.6 g/dL (14.0-18.0); Immature Granulocyte Absolute 0.02 K/mm3 (0.00-0.031); Immature Granulocyte Percent A 0.4 % (0-0.5); Lymphocytes Absolute Auto 0.84 K/mm3 (0.9-3.2); Lymphocytes Percent Auto 15.4 % (18.3-44.2); Mean Corpuscular HGB Conc 30.6 g/dl (32-36); Mean Corpuscular Hemoglobin 27.9 pg (26-34); Mean Corpuscular Volume 91.1 fl (80-100); Mean Platelet Volume 10.3 fl (7.4-10.4); Monocytes Absolute Auto 0.7 K/mm3 (0.1-0.6); Monocytes Percent Auto 12.6 % (2.6-8.5); Neutrophils Absolute Auto 3.7 K/mm3 (1.3-6.7); Neutrophils Percent Auto 67.6 % (45.5-73.1); Platelet Count Result 210 k/mm3 (150-375); Red Cell Distribution Width 16.3 % (11.5-14.5); White Blood Count 5.5 K/mm3 (4.5-10.0)
[2023-11-06 05:12] LABS: Alanine Aminotransferase 24 U/L (6-50); Albumin Level 3.5 g/dL (3.5-5.1); Alkaline Phosphatase 111 U/L (38-126); Anion Gap 5 mmol/L (8-16); Aspartate Amino Transferase 32 U/L (17-59); Bilirubin,Total 1.2 mg/dL (0.2-1.3); Blood Urea Nitrogen 22 mg/dL (9-20); Calcium 8.9 mg/dL (8.4-10.2); Carbon Dioxide 33 mmol/L (22-30); Chloride 98 mmol/L (98-107); Estimated CRCL calculation 54 ml/min; Estimated Glomerular Filt Rate > 60; Glucose 143 mg/dL (65-110); Magnesium 2.5 mg/dL (1.6-2.3); Potassium 4.4 mmol/L (3.4-5.0); Sodium 136 mmol/L (137-145)
[2023-11-06] MEDS: metroNIDAZOLE 500 MG TABLET PO ×3 (05:59→22:04)
[2023-11-06 08:28] LABS: Glucose Point of Care 129 mg/dl (65-105)
[2023-11-06] MEDS: ASPIRIN 81 MG ENTERIC TABLET PO (08:57)
[2023-11-06] MEDS: POTASSIUM CHLORIDE 20 MEQ ER TABLET PO (08:57)
[2023-11-06] MEDS: ENOXAPARIN 40 MG/0.4 ML SYRINGE SUB-Q (08:57)
[2023-11-06] MEDS: ATORVASTATIN 40 MG TABLET PO (08:57)
[2023-11-06] MEDS: ASCORBIC ACID 500 MG TABLET PO (08:57)
[2023-11-06] MEDS: THIAMINE HCL 100 MG TABLET PO (08:57)
[2023-11-06] MEDS: CLOPIDOGREL BISULFATE 75 MG TABLET PO (08:57)
[2023-11-06] MEDS: SPIRONOLACTONE 25 MG TABLET PO (08:57)
[2023-11-06] MEDS: FUROSEMIDE INJ 40 MG/4 ML VIAL IV PUSH (08:58)
[2023-11-06] MEDS: EMPAGLIFLOZIN 10 MG TABLET PO (08:58)
--- NOTE | 2023-11-06 09:08 | PC.NURSE ---
Spoke with Aracelis De Oliveira NP regarding pt's BP of 96/57. Parameters on Metoprolol and Entresto are to hold if SBP <95. Parameter on Lasix is to hold if SBP <90. With pt's BP being so close to the parameters RN felt uncomfortable to give all of the cardiac medications at this time. Clarification received from Aracelis De Oliveira NP to give the Lasix and Entresto and hold Metoprolol for today.
[2023-11-06] MEDS: SACUBITRIL/VALSARTAN 24-26 MG TABLET 1 TAB PO ×2 (09:11→18:07)
[2023-11-06] MEDS: DOBUTamine 250 MG/D5W 250 ML 250 MG/250 ML BAG 22.5 MG IV CONT ×2 (10:21→22:15)
[2023-11-06 11:57] LABS: Glucose Point of Care 141 mg/dl (65-105)
--- NOTE | 2023-11-06 12:21 | PM.IMPN ---
Progress Note: A&P Assessment and Plan (1) CHF exacerbation: Qualifiers: Heart failure type: systolic Qualified Code(s): I50.23 - Acute on chronic systolic (congestive) heart failure Code(s): I50.9 - Heart failure, unspecified Status: Acute Assessment and Plan: Patient presents with SOB and found to have acute on chronic systolic and diastolic CHF. Echo in Jun 2023 showing EF 20-25% with grade I diastolic dysfunction. Cardiology consulted and appreciate their input. Chest CTA showing no PE but bilateral pleural effusion (L>>R), diffuse patchy groundglass infiltrates, ascites with nodular densities of the omentum Dobutamine started. Lasix IV started. Tolerating Spironolactone, Torpol XL, Empagliflozin and Entresto. He has refused LifeVest in the past. Thoracentesis performed on 11/04/23 with removal of 1L of dark brownish fluid. No studies sent. Continue IV diuresis with Lasix as tolerated. Strict I&Os, daily BMP, daily weights, low-sodium diet (2) Ischemic cardiomyopathy: Code(s): I25.5 - Ischemic cardiomyopathy Status: Acute Assessment and Plan: As above. [facility] 07/28/23 showing right coronary dominant circulation with severe ischemic cardiomyopathy, total occlusion of the proximal circumflex as well as total occlusion of the RPL branch the right coronary. He had diffuse disease and heavily calcified LAD with high-grade stenosis in the midportion and severe LV systolic dysfunction with EF of 20%. Will need outpatient management at the [facility] and consideration for ICD (3) Coronary artery disease: Code(s): I25.10 - Atherosclerotic heart disease of [place] coronary artery without angina pectoris Status: Acute Assessment and Plan: As above (4) Hypotension: Qualifiers: Hypotension type: unspecified hypotension type Qualified Code(s): I95.9 - Hypotension, unspecified Code(s): I95.9 - Hypotension, unspecified Status: Acute Assessment and Plan: BP soft at times. Remains on Dobutamine. (5) Type 2 diabetes mellitus: Code(s): E11.9 - Type 2 diabetes mellitus without complications Status: Acute Assessment and Plan: A1c 8.4. The patient's blood glucose was reviewed on 11/06 Glucose remains well controlled. Continue AccuCheks covering with sliding scale. Hypoglycemia protocol available as needed. Continue to monitor (6) Diarrhea: Code(s): R19.7 - Diarrhea, unspecified Status: Acute Assessment and Plan: Patient has been having large, watery stools with incontinence. Suspect ischemic colitis related to his poor cardiac output so CT ordered. Stool studies ordered and Flagyl started 11/05. CT A/P showing small right and moderate left pleural effusion, GG and airspace opacity in LLL and lingula c/w PNA and large volume of ascites. No evidence of cirrhosis, colitis or nodular densities of omentum. Follow up on stool studies. Patient agreeable for paracentesis so will proceed and check studies. Plan DVT prophylaxis with Lovenox Code status full code Subjective Date/time seen: 11/06/23 12:21 Interval history: 68-year-old male with ischemic cardiomyopathy and an EF of 17% is presenting with heart failure exacerbation. Feeling depressed today. No further stool accidents. No abd pain or bloating. No CP or SOS. Exam Narrative: AF 96.9 103/77 103 20 96% ra Gen - NARD Chest - decrease BS in left base with crackles lower left lung field. Right lung clear. CV - RRR S1/S2. Tele showing no significant dysrhythmias Abd - Soft, NT/ND, Positive BS Back - well healed scar right mid back Ext - 1+ woody pitting pedal edema Psych - Nml mood but sad affect. good eye contact and engages normally Skin - Warm and dry. right great toe dressing clean and dry Objective Data Vital Signs Vital Signs: Vital Signs - 24 hr 11/05/23 13:30 11/05/23 1
[2023-11-06 14:32] LABS: Lactate Dehydrogenase 180 U/L (120-246)
--- NOTE | 2023-11-06 17:05 | PM.PNCARD ---
Progress Note: A&P Assessment and Plan (1) Ischemic cardiomyopathy: Code(s): I25.5 - Ischemic cardiomyopathy Status: Acute Assessment and Plan: EF 17% by most recent echo. Continue guideline directed medical therapy with Entresto, Toprol-XL, spironolactone as BP tolerates. He is not on Jardiance because he is on Rybelsus for his diabetes. He may benefit from the [facility] at [place] for long-term management of his severe cardiomyopathy including durable options such as heart transplant or LVAD. Discussed with pt, who is still reluctant. Unable to titrate meds further due to low BP (2) CHF exacerbation: Qualifiers: Heart failure type: systolic Qualified Code(s): I50.23 - Acute on chronic systolic (congestive) heart failure Code(s): I50.9 - Heart failure, unspecified Status: Acute Assessment and Plan: Acute on chronic systolic heart failure despite increased dose of diuretics at home. Still volume-overloaded, but at least he hs a blood pressure we can work with. Cont furosemide, go back to 60 mg IV push b.i.d. Continue inotrope support in the form of dobutamine 5.0 mcg/kg/minute. Start to wean off; reduce to 2.5 mcg qd tmr? Strict intake and output Daily weights. States his dry weight is 160lbs; he's 163 this a.m. but still volume overloaded Low-sodium diet CHF counseling Home Friday or Friday (3) Pleural effusion: Code(s): J90 - Pleural effusion, not elsewhere classified Status: Acute Assessment and Plan: Thoracentesis 11/04/2023 of 1 L. (4) Hypotension: Qualifiers: Hypotension type: unspecified hypotension type Qualified Code(s): I95.9 - Hypotension, unspecified Code(s): I95.9 - Hypotension, unspecified Status: Acute Assessment and Plan: He is chronically hypotensive related to his poor cardiac output and medical therapy for his cardiomyopathy. He is asymptomatic, but some meds were held recently because of worsening hypotension and patient required some IV fluids when his SBP was in the 70s Friday after his thoracentesis. --Resumed diuretic; resume other meds if SBP > 95 mmHg. May need to stagger meds. . (5) At risk for sudden cardiac : Code(s): Z91.89 - Other specified personal risk factors, not elsewhere classified Status: Acute Assessment and Plan: He has declined Life Vest in the past. However, since he has been on medical therapy for nearly 6 months now with no improvement of his systolic function, will need to consider ICD or LifeVest. Discussed with patient, he does not want a Life Vest but may consider an ICD. (6) Hyperlipidemia: Code(s): E78.5 - Hyperlipidemia, unspecified Status: Acute Assessment and Plan: Continue statin Subjective Date/time seen: 11/06/23 17:05 Interval history: Dre Coates is a 68-year-old with hypertension, hyperlipidemia, coronary artery disease, and ischemic cardiomyopathy with an EF of 17%.? He was initially seen by Dr. Jewell in May of 2023 for CHF and was found to have severe LV systolic dysfunction with an EF of 25%.? He underwent cardiac catheterization by Dr. Baires on 07/28/2023 and was found to have a diffusely diseased LAD with 80-90% stenosis in the mid LAD at the origin of the 2nd diagonal branch.? The left circumflex was 100% occluded as origin, trunk of the RCA was free of disease, RPDA patent and free of significant disease, RPL totally occluded at the origin.? He was referred to [facility] for high risk PCI and did have successful Impella supported PCI.? He was seen in the office for follow-up and was felt to be volume overloaded despite increasing oral diuretics over the past week.? Therefore, he was sent to the emergency department and admitted for decompensated heart failure Date of service 11/01/2023: Breathing a little easier. Abdominal distension has slightly improved. No chest
[2023-11-06 17:21] LABS: Glucose Point of Care 110 mg/dl (65-105)
[2023-11-06] MEDS: FUROSEMIDE INJ 100 MG/10 ML VIAL 60 MG IV PUSH (18:09)
[2023-11-06 20:46] LABS: Appearance Peritoneal Fluid Hazy (Clear); Color Peritoneal Fluid Yellow (Colorless); Source Peritoneal Fluid Peritoneal Fluid
[2023-11-06 20:47] LABS: Lymphocytes Peritoneal Fluid 22 %; Macrophages Peritoneal Fluid 51 %; Mesothelial Cells Peritoneal Fluid 7 %; Neutrophils Peritoneal Fluid 20 % (0-25)
[2023-11-06] MEDS: ESCITALOPRAM OXALATE 10 MG TABLET PO (22:05)
[2023-11-06] MEDS: traZODone HCL 50 MG TABLET PO (22:05)
[2023-11-06 23:18] LABS: Glucose Point of Care 154 mg/dl (65-105)
[2023-11-06 23:18] LABS: Glucose Point of Care 114 mg/dl (65-105)
[2023-11-07] VITALS (19 sets, daily range): BP systolic 88–123; BP diastolic 57–89; PULSE 71–96; RESP 18–22; TEMP 36–36.7; O2SAT 94–100
[2023-11-07 04:52] LABS: Basophils Percent Auto 0.2 % (0.2-1.2); Eosinophils Absolute Auto 0.3 K/mm3 (0-0.3); Eosinophils Percent Auto 4.8 % (0-4.4); Hematocrit 34.5 % (42.0-52.0); Hemoglobin 10.7 g/dL (14.0-18.0); Immature Granulocyte Absolute 0.01 K/mm3 (0.00-0.031); Immature Granulocyte Percent A 0.2 % (0-0.5); Lymphocytes Absolute Auto 1.05 K/mm3 (0.9-3.2); Lymphocytes Percent Auto 16.7 % (18.3-44.2); Mean Corpuscular Hemoglobin 28.1 pg (26-34); Mean Corpuscular Volume 90.6 fl (80-100); Mean Platelet Volume 10.6 fl (7.4-10.4); Monocytes Absolute Auto 0.8 K/mm3 (0.1-0.6); Monocytes Percent Auto 13.1 % (2.6-8.5); Neutrophils Absolute Auto 4.1 K/mm3 (1.3-6.7); Platelet Count Result 220 k/mm3 (150-375); Red Blood Count 3.81 M/mm3 (4.6-6.20); Red Cell Distribution Width 16.2 % (11.5-14.5); White Blood Count 6.3 K/mm3 (4.5-10.0)
[2023-11-07 05:07] LABS: Alanine Aminotransferase 21 U/L (6-50); Albumin Level 3.5 g/dL (3.5-5.1); Alkaline Phosphatase 106 U/L (38-126); Anion Gap 4 mmol/L (8-16); Aspartate Amino Transferase 27 U/L (17-59); Bilirubin,Total 1.3 mg/dL (0.2-1.3); Blood Urea Nitrogen 21 mg/dL (9-20); Calcium 8.7 mg/dL (8.4-10.2); Carbon Dioxide 34 mmol/L (22-30); Chloride 96 mmol/L (98-107); Estimated CRCL calculation 54 ml/min; Estimated Glomerular Filt Rate > 60; Glucose 111 mg/dL (65-110); Potassium 3.9 mmol/L (3.4-5.0); Sodium 134 mmol/L (137-145)
[2023-11-07] MEDS: metroNIDAZOLE 500 MG TABLET PO ×3 (06:01→21:17)
[2023-11-07] MEDS: EMPAGLIFLOZIN 10 MG TABLET PO (08:17)
[2023-11-07] MEDS: ATORVASTATIN 40 MG TABLET PO (08:17)
[2023-11-07] MEDS: SPIRONOLACTONE 25 MG TABLET PO (08:17)
[2023-11-07] MEDS: CLOPIDOGREL BISULFATE 75 MG TABLET PO (08:17)
[2023-11-07] MEDS: THIAMINE HCL 100 MG TABLET PO (08:17)
[2023-11-07] MEDS: ASCORBIC ACID 500 MG TABLET PO (08:17)
[2023-11-07] MEDS: SACUBITRIL/VALSARTAN 24-26 MG TABLET 1 TAB PO ×2 (08:17→17:20)
[2023-11-07] MEDS: FUROSEMIDE INJ 100 MG/10 ML VIAL 60 MG IV PUSH ×2 (08:17→17:20)
[2023-11-07] MEDS: POTASSIUM CHLORIDE 20 MEQ ER TABLET PO (08:17)
[2023-11-07] MEDS: METOPROLOL SUCCINATE EXT REL 25 MG TABCR PO (08:17)
[2023-11-07] MEDS: ENOXAPARIN 40 MG/0.4 ML SYRINGE SUB-Q (08:17)
[2023-11-07] MEDS: ASPIRIN 81 MG ENTERIC TABLET PO (08:17)
--- NOTE | 2023-11-07 08:44 | PCNWS ---
Weekly nutritional screen. Patient is tolerating current diet with adequate intake. No weight loss reported. No nutritional needs at this time.
[2023-11-07] MEDS: DOBUTamine 250 MG/D5W 250 ML 250 MG/250 ML BAG 22.5 MG IV CONT (09:50)
--- NOTE | 2023-11-07 11:27 | PM.PNCARD ---
Progress Note: A&P Assessment and Plan (1) Ischemic cardiomyopathy: Code(s): I25.5 - Ischemic cardiomyopathy Status: Acute Assessment and Plan: EF 17% by most recent echo. Continue guideline directed medical therapy with Entresto, Toprol-XL, spironolactone as BP tolerates. He is not on Jardiance because he is on Rybelsus for his diabetes. He may benefit from the [facility] at [place] for long-term management of his severe cardiomyopathy including durable options such as heart transplant or LVAD. Discussed with pt, who is still reluctant. Unable to titrate meds further due to low BP (2) CHF exacerbation: Qualifiers: Heart failure type: systolic Qualified Code(s): I50.23 - Acute on chronic systolic (congestive) heart failure Code(s): I50.9 - Heart failure, unspecified Status: Acute Assessment and Plan: Acute on chronic systolic heart failure despite increased dose of diuretics at home. Still volume-overloaded, but at least he hs a blood pressure we can work with. Cont furosemide, go back to 60 mg IV push b.i.d. Continue inotrope support in the form of dobutamine, will decrease to 2.5mcg/kg/min Daily weights. States his dry weight is 160lbs Low-sodium diet CHF counseling Home Friday or Friday (3) Pleural effusion: Code(s): J90 - Pleural effusion, not elsewhere classified Status: Acute Assessment and Plan: Thoracentesis 11/04/2023 of 1 L. (4) Hypotension: Qualifiers: Hypotension type: unspecified hypotension type Qualified Code(s): I95.9 - Hypotension, unspecified Code(s): I95.9 - Hypotension, unspecified Status: Acute Assessment and Plan: He is chronically hypotensive related to his poor cardiac output and medical therapy for his cardiomyopathy. He is asymptomatic, but some meds were held recently because of worsening hypotension and patient required some IV fluids when his SBP was in the 70s Friday after his thoracentesis. --Resumed diuretic; resume other meds if SBP > 95 mmHg. May need to stagger meds. . (5) At risk for sudden cardiac : Code(s): Z91.89 - Other specified personal risk factors, not elsewhere classified Status: Acute Assessment and Plan: He has declined Life Vest in the past. However, since he has been on medical therapy for nearly 6 months now with no improvement of his systolic function, will need to consider ICD or LifeVest. Discussed with patient, he does not want a Life Vest but may consider an ICD. (6) Hyperlipidemia: Code(s): E78.5 - Hyperlipidemia, unspecified Status: Acute Assessment and Plan: Continue statin Subjective Date/time seen: 11/07/23 11:27 Interval history: Dre Coates is a 68-year-old with hypertension, hyperlipidemia, coronary artery disease, and ischemic cardiomyopathy with an EF of 17%.? He was initially seen by Dr. Jewell in May of 2023 for CHF and was found to have severe LV systolic dysfunction with an EF of 25%.? He underwent cardiac catheterization by Dr. Baires on 07/28/2023 and was found to have a diffusely diseased LAD with 80-90% stenosis in the mid LAD at the origin of the 2nd diagonal branch.? The left circumflex was 100% occluded as origin, trunk of the RCA was free of disease, RPDA patent and free of significant disease, RPL totally occluded at the origin.? He was referred to [place] for high risk PCI and did have successful Impella supported PCI.? He was seen in the office for follow-up and was felt to be volume overloaded despite increasing oral diuretics over the past week.? Therefore, he was sent to the emergency department and admitted for decompensated heart failure Date of service 11/01/2023: Breathing a little easier. Abdominal distension has slightly improved. No chest pain. Continue furosemide 40 mg IV push b.i.d. Date of service 11/02/2023: Still feels a bit better but
--- NOTE | 2023-11-07 11:28 | PC.NURSE ---
Pt continues to refuse accu-checks and is requesting to have them stopped. notified. No new orders.
--- NOTE | 2023-11-07 15:21 | PM.IMPN ---
Progress Note: A&P Assessment and Plan (1) CHF exacerbation: Qualifiers: Heart failure type: systolic Qualified Code(s): I50.23 - Acute on chronic systolic (congestive) heart failure Code(s): I50.9 - Heart failure, unspecified Status: Acute Assessment and Plan: Patient presents with SOB and found to have acute on chronic systolic and diastolic CHF. Echo in Jun 2023 showing EF 20-25% with grade I diastolic dysfunction. Cardiology consulted and appreciate their input. Chest CTA showing no PE but bilateral pleural effusion (L>>R), diffuse patchy groundglass infiltrates, ascites with nodular densities of the omentum Dobutamine started. Lasix IV started. Tolerating Spironolactone, Torpol XL, Empagliflozin and Entresto. He has refused LifeVest in the past. Thoracentesis performed on 11/04/23 with removal of 1L of dark brownish fluid. No studies sent. I/O -4.2L. UOP 4.5L yesterday. Continue IV diuresis with Lasix as tolerated. Strict I&Os, daily BMP, daily weights, low-sodium diet (2) Ischemic cardiomyopathy: Code(s): I25.5 - Ischemic cardiomyopathy Status: Acute Assessment and Plan: As above. [facility] 07/28/23 showing right coronary dominant circulation with severe ischemic cardiomyopathy, total occlusion of the proximal circumflex as well as total occlusion of the RPL branch the right coronary. He had diffuse disease and heavily calcified LAD with high-grade stenosis in the midportion and severe LV systolic dysfunction with EF of 20%. Medical management as above. Will need outpatient management at the [facility] and consideration for ICD (3) Coronary artery disease: Code(s): I25.10 - Atherosclerotic heart disease of [place] coronary artery without angina pectoris Status: Acute Assessment and Plan: As above (4) Hypotension: Qualifiers: Hypotension type: unspecified hypotension type Qualified Code(s): I95.9 - Hypotension, unspecified Code(s): I95.9 - Hypotension, unspecified Status: Acute Assessment and Plan: Patient presents with CHF exacerbation and HoTN c/w cardiogenic shock. Dobutamine started. BP soft at times but better overall. Remains on Dobutamine. (5) Type 2 diabetes mellitus: Code(s): E11.9 - Type 2 diabetes mellitus without complications Status: Acute Assessment and Plan: A1c 8.4. The patient's blood glucose was reviewed on 11/07 Glucose remains well controlled. Continue AccuCheks covering with sliding scale. Hypoglycemia protocol available as needed. Continue to monitor (patient refusing glucose checks) (6) Diarrhea: Code(s): R19.7 - Diarrhea, unspecified Status: Acute Assessment and Plan: Patient has been having large, watery stools with incontinence. Suspect ischemic colitis related to his poor cardiac output so CT ordered. Stool studies ordered and Flagyl started 11/05. CT A/P showing small right and moderate left pleural effusion, GG and airspace opacity in LLL and lingula c/w PNA and large volume of ascites. No evidence of cirrhosis, colitis or nodular densities of omentum. Stool studies pending. Paracentesis performed 11/06 with 1.9L of clear yellow fluid. No cell count but mostly macrophages at 51%. Other studies pending. Path showing numerous mesothelial cells with scattered neutrophils and erythrocytes; subpopulation of atypical cells with increased NC ratio. Cytolgy pending Plan DVT prophylaxis with Lovenox Code status full code Disposition - increase activity Subjective Date/time seen: 11/07/23 15:21 Interval history: 68-year-old male with ischemic cardiomyopathy and an EF of 17% is presenting with heart failure exacerbation. Feeling well. He has not been out of bed very much since hospitalized. No problems overnight. No history of cancer, liver disease or inflammatory bowel disease. Shortness of breath is better.
[2023-11-07] MEDS: traZODone HCL 50 MG TABLET PO (21:17)
[2023-11-07] MEDS: ESCITALOPRAM OXALATE 10 MG TABLET PO (21:17)
[2023-11-08] VITALS (18 sets, daily range): BP systolic 70–128; BP diastolic 40–58; PULSE 81–93; RESP 16–20; TEMP 36.2–36.7; O2SAT 92–100
[2023-11-08 04:57] LABS: Basophils Percent Auto 0.2 % (0.2-1.2); Eosinophils Absolute Auto 0.3 K/mm3 (0-0.3); Eosinophils Percent Auto 5.5 % (0-4.4); Hematocrit 37.8 % (42.0-52.0); Hemoglobin 11.9 g/dL (14.0-18.0); Immature Granulocyte Absolute 0.02 K/mm3 (0.00-0.031); Immature Granulocyte Percent A 0.4 % (0-0.5); Lymphocytes Absolute Auto 0.99 K/mm3 (0.9-3.2); Lymphocytes Percent Auto 18.1 % (18.3-44.2); Mean Corpuscular HGB Conc 31.5 g/dl (32-36); Mean Corpuscular Hemoglobin 28.1 pg (26-34); Mean Corpuscular Volume 89.4 fl (80-100); Mean Platelet Volume 10.6 fl (7.4-10.4); Monocytes Absolute Auto 0.7 K/mm3 (0.1-0.6); Monocytes Percent Auto 12.1 % (2.6-8.5); Neutrophils Absolute Auto 3.5 K/mm3 (1.3-6.7); Neutrophils Percent Auto 63.7 % (45.5-73.1); Platelet Count Result 243 k/mm3 (150-375); Red Blood Count 4.23 M/mm3 (4.6-6.20); Red Cell Distribution Width 16.1 % (11.5-14.5); White Blood Count 5.5 K/mm3 (4.5-10.0)
[2023-11-08] MEDS: DOBUTamine 250 MG/D5W 250 ML 250 MG/250 ML BAG 11.25 MG IV CONT (05:12)
[2023-11-08 05:24] LABS: Alanine Aminotransferase 21 U/L (6-50); Albumin Level 3.6 g/dL (3.5-5.1); Alkaline Phosphatase 111 U/L (38-126); Anion Gap 6 mmol/L (8-16); Aspartate Amino Transferase 31 U/L (17-59); Bilirubin,Total 1.5 mg/dL (0.2-1.3); Blood Urea Nitrogen 24 mg/dL (9-20); Calcium 8.9 mg/dL (8.4-10.2); Carbon Dioxide 34 mmol/L (22-30); Chloride 95 mmol/L (98-107); Estimated CRCL calculation 50 ml/min; Estimated Glomerular Filt Rate 60; Glucose 109 mg/dL (65-110); Potassium 4.4 mmol/L (3.4-5.0); Sodium 135 mmol/L (137-145)
[2023-11-08] MEDS: metroNIDAZOLE 500 MG TABLET PO ×3 (06:16→21:17)
[2023-11-08] MEDS: SACUBITRIL/VALSARTAN 24-26 MG TABLET 1 TAB PO (09:21)
[2023-11-08] MEDS: THIAMINE HCL 100 MG TABLET PO (09:21)
[2023-11-08] MEDS: ASCORBIC ACID 500 MG TABLET PO (09:21)
[2023-11-08] MEDS: ASPIRIN 81 MG ENTERIC TABLET PO (09:21)
[2023-11-08] MEDS: FUROSEMIDE INJ 100 MG/10 ML VIAL 60 MG IV PUSH (09:21)
[2023-11-08] MEDS: POTASSIUM CHLORIDE 20 MEQ ER TABLET PO (09:21)
[2023-11-08] MEDS: ENOXAPARIN 40 MG/0.4 ML SYRINGE SUB-Q (09:21)
[2023-11-08] MEDS: EMPAGLIFLOZIN 10 MG TABLET PO (09:21)
[2023-11-08] MEDS: METOPROLOL SUCCINATE EXT REL 25 MG TABCR PO (09:22)
[2023-11-08] MEDS: SPIRONOLACTONE 25 MG TABLET PO (09:22)
[2023-11-08] MEDS: CLOPIDOGREL BISULFATE 75 MG TABLET PO (09:22)
[2023-11-08] MEDS: ATORVASTATIN 40 MG TABLET PO (09:22)
--- NOTE | 2023-11-08 11:08 | PM.PNCARD ---
Progress Note: A&P Assessment and Plan (1) Ischemic cardiomyopathy: Code(s): I25.5 - Ischemic cardiomyopathy Status: Acute (2) At risk for sudden cardiac : Code(s): Z91.89 - Other specified personal risk factors, not elsewhere classified Status: Acute Plan 68-year-old man with: Multivessel coronary disease status post aggressive, Impella assisted PCI at [facility] in the fall of last year. He unfortunately has had no significant recovery in his left ventricular function his very low ejection fraction and heart failure despite appropriate guideline directed medical therapy. He is improving after the last week in the hospital with medical therapy and intravenous dobutamine as well as tapping pleural and peritoneal fluid. Patient has previously been not interested in ICD or LifeVest consideration. He is changing his opinion about that after my conversation with him this morning. Will put in a consult request for LifeVest for that reason. This will probably not happen until Friday and so I will keep his low-dose dobutamine running at least until tomorrow. Also anticipate referral to the [facility] at [place] given the fact that he is a functional gentleman that has a very poor prognosis given his profoundly depressed LV systolic function [facility] Baires MD [facility] Subjective Date/time seen: Date of service: 11/08/23 11:08 Interval history: Dre Coates is a 68-year-old with hypertension, hyperlipidemia, coronary artery disease, and ischemic cardiomyopathy with an EF of 17%.? He was initially seen by Dr. Jewell in May of 2023 for CHF and was found to have severe LV systolic dysfunction with an EF of 25%.? He underwent cardiac catheterization by Dr. Baires on 07/28/2023 and was found to have a diffusely diseased LAD with 80-90% stenosis in the mid LAD at the origin of the 2nd diagonal branch.? The left circumflex was 100% occluded as origin, trunk of the RCA was free of disease, RPDA patent and free of significant disease, RPL totally occluded at the origin.? He was referred to [place] for high risk PCI and did have successful Impella supported PCI.? He was seen in the office for follow-up and was felt to be volume overloaded despite increasing oral diuretics over the past week.? Therefore, he was sent to the emergency department and admitted for decompensated heart failure Date of service 11/01/2023: Breathing a little easier. Abdominal distension has slightly improved. No chest pain. Continue furosemide 40 mg IV push b.i.d. Date of service 11/02/2023: Still feels a bit better but still has significant abdominal distention and lower extremity edema. No chest pain. Dobutamine added. Date of service 11/03/2023: Abdominal and lower extremity edema persistent, slowly improving. Less short of breath at rest, still has orthopnea. Scheduled thoracentesis. Date of service 11/04/2023: Ongoing LAND and orthopnea. Heart rate 90-100, systolic blood pressure runs in the 90s. On room air. Cumulative diuresis this admission was 1100 cc, per EMR, but this may be erroneous as pt says he's urinating a lot after IV furosemide and LE edema getting better. Getting thoracentesis today. Date of service 11/05/2023: Had thoracentesis yesterday with the removal of 1 L. However afterwards his blood pressure was running in the 70s so he received some boluses of normal saline, 1 bolus of albumin, and later his dobutamine was increased to 5 mics per kilos. BP was 90 mmHg this a.m., so we skipped a.m. meds. He feels fine, w/o weakness or dizziness. Date of service 11/06/2023: Blood pressure a little better, often systolic BP 100+. REmains on dobutamine 5 mcg. Back on diuretic and Entresto, with moderate diuresis. ' CT reviewed, small pleural effusions, large volume of ascites. Possible pneumonia. Had paracentesis of 2000 cc. chest x-ray also personally reviewed, ongoing CHF and left effusion. Date of
--- NOTE | 2023-11-08 13:46 | PM.IMPN ---
Progress Note: A&P Assessment and Plan (1) CHF exacerbation: Qualifiers: Heart failure type: systolic Qualified Code(s): I50.23 - Acute on chronic systolic (congestive) heart failure Code(s): I50.9 - Heart failure, unspecified Status: Acute Assessment and Plan: Patient presents with SOB and found to have acute on chronic systolic and diastolic CHF. Echo in Jun 2023 showing EF 20-25% with grade I diastolic dysfunction. Cardiology consulted and appreciate their input. Chest CTA showing no PE but bilateral pleural effusion (L>>R), diffuse patchy groundglass infiltrates, ascites with nodular densities of the omentum Dobutamine started. Lasix IV started. Tolerating Spironolactone, Toprol XL, Empagliflozin and Entresto. He has refused LifeVest in the past but now agreeable. Thoracentesis performed on 11/04/23 with removal of 1L of dark brownish fluid. No studies sent. I/O -4.8L. UOP 2.1L yesterday. Continue IV diuresis with Lasix as tolerated but may need to back off given BP. Dobutamine trying to be weaned Strict I&Os, daily BMP, daily weights, low-sodium diet Life vest to be set up (2) Ischemic cardiomyopathy: Code(s): I25.5 - Ischemic cardiomyopathy Status: Acute Assessment and Plan: As above. [facility] 07/28/23 showing right coronary dominant circulation with severe ischemic cardiomyopathy, total occlusion of the proximal circumflex as well as total occlusion of the RPL branch the right coronary. He had diffuse disease and heavily calcified LAD with high-grade stenosis in the midportion and severe LV systolic dysfunction with EF of 20%. Medical management as above. Will need outpatient management at the [facility] and consideration for ICD Life vest to be set up (3) Coronary artery disease: Code(s): I25.10 - Atherosclerotic heart disease of [place] coronary artery without angina pectoris Status: Acute Assessment and Plan: As above (4) Hypotension: Qualifiers: Hypotension type: unspecified hypotension type Qualified Code(s): I95.9 - Hypotension, unspecified Code(s): I95.9 - Hypotension, unspecified Status: Acute Assessment and Plan: Patient presents with CHF exacerbation and HoTN c/w cardiogenic shock. Dobutamine started. BP soft at times but better overall. Remains on Dobutamine but now being weaned. BP noted (5) Type 2 diabetes mellitus: Code(s): E11.9 - Type 2 diabetes mellitus without complications Status: Acute Assessment and Plan: A1c 8.4. The patient's blood glucose was reviewed on 11/08 Glucose remains well controlled. Will stop AccuCheks since patient refusing. Hypoglycemia protocol available as needed. (6) Diarrhea: Code(s): R19.7 - Diarrhea, unspecified Status: Acute Assessment and Plan: Patient was having large, watery stools with incontinence. Suspect ischemic colitis related to his poor cardiac output so CT ordered. Stool studies ordered and Flagyl started 11/05. CT A/P showing small right and moderate left pleural effusion, GG and airspace opacity in LLL and lingula c/w PNA and large volume of ascites. No evidence of cirrhosis, colitis or nodular densities of omentum. Stool studies pending. Diarrhea improving. Paracentesis performed 11/06 with 1.9L of clear yellow fluid. No cell count but mostly macrophages at 51%. Other studies pending. Path showing numerous mesothelial cells with scattered neutrophils and erythrocytes; subpopulation of atypical cells with increased NC ratio. Cytology pending Plan DVT prophylaxis with Lovenox Code status full code Disposition - increase activity Subjective Date/time seen: 11/08/23 13:46 Interval history: 68-year-old male with ischemic cardiomyopathy and an EF of 17% is presenting with heart failure exacerbation. Patient refusing finger sticks. Now agreeable for life vest. Feeling ok
[2023-11-08] MEDS: EUCERIN CREAM 120 GM JAR 1 APPLIC TOPICAL (14:31)
[2023-11-08] MEDS: traZODone HCL 50 MG TABLET PO (21:17)
[2023-11-08] MEDS: ESCITALOPRAM OXALATE 10 MG TABLET PO (21:17)
[2023-11-09] VITALS (25 sets, daily range): BP systolic 68–130; BP diastolic 44–91; PULSE 72–97; RESP 16–24; TEMP 36.2–36.7; O2SAT 94–100
[2023-11-09] MEDS: SODIUM CHLORIDE 0.9% IV 250 ML IV CONT (00:07)
[2023-11-09 04:49] LABS: Basophils Percent Auto 0.2 % (0.2-1.2); Eosinophils Absolute Auto 0.4 K/mm3 (0-0.3); Hematocrit 36.8 % (42.0-52.0); Hemoglobin 11.5 g/dL (14.0-18.0); Immature Granulocyte Absolute 0.02 K/mm3 (0.00-0.031); Immature Granulocyte Percent A 0.3 % (0-0.5); Lymphocytes Absolute Auto 1.15 K/mm3 (0.9-3.2); Lymphocytes Percent Auto 18.8 % (18.3-44.2); Mean Corpuscular HGB Conc 31.3 g/dl (32-36); Mean Corpuscular Hemoglobin 28.3 pg (26-34); Mean Corpuscular Volume 90.6 fl (80-100); Mean Platelet Volume 10.8 fl (7.4-10.4); Monocytes Absolute Auto 0.6 K/mm3 (0.1-0.6); Monocytes Percent Auto 10.4 % (2.6-8.5); Neutrophils Absolute Auto 3.9 K/mm3 (1.3-6.7); Neutrophils Percent Auto 64.3 % (45.5-73.1); Platelet Count Result 258 k/mm3 (150-375); Red Blood Count 4.06 M/mm3 (4.6-6.20); White Blood Count 6.1 K/mm3 (4.5-10.0)
[2023-11-09 05:10] LABS: Alanine Aminotransferase 22 U/L (6-50); Albumin Level 3.5 g/dL (3.5-5.1); Alkaline Phosphatase 115 U/L (38-126); Anion Gap 6 mmol/L (8-16); Aspartate Amino Transferase 47 U/L (17-59); Blood Urea Nitrogen 33 mg/dL (9-20); Calcium 8.5 mg/dL (8.4-10.2); Carbon Dioxide 29 mmol/L (22-30); Chloride 100 mmol/L (98-107); Estimated CRCL calculation 50 ml/min; Estimated Glomerular Filt Rate 60; Glucose 133 mg/dL (65-110); Potassium 4.9 mmol/L (3.4-5.0); Sodium 135 mmol/L (137-145)
[2023-11-09] MEDS: metroNIDAZOLE 500 MG TABLET PO ×3 (05:57→21:38)
[2023-11-09] MEDS: MIDODRINE HCL 2.5 MG TABLET 5 MG PO ×3 (05:57→13:20)
[2023-11-09] MEDS: SODIUM CHLORIDE 0.9% IV 500 ML 250 ML IV CONT (09:00)
[2023-11-09] MEDS: SPIRONOLACTONE 25 MG TABLET PO (09:01)
[2023-11-09] MEDS: POTASSIUM CHLORIDE 20 MEQ ER TABLET PO (09:01)
[2023-11-09] MEDS: THIAMINE HCL 100 MG TABLET PO (09:01)
[2023-11-09] MEDS: ASCORBIC ACID 500 MG TABLET PO (09:01)
[2023-11-09] MEDS: ATORVASTATIN 40 MG TABLET PO (09:01)
[2023-11-09] MEDS: CLOPIDOGREL BISULFATE 75 MG TABLET PO (09:01)
[2023-11-09] MEDS: ASPIRIN 81 MG ENTERIC TABLET PO (09:01)
[2023-11-09] MEDS: EMPAGLIFLOZIN 10 MG TABLET PO (09:02)
[2023-11-09] MEDS: EUCERIN CREAM 120 GM JAR 1 APPLIC TOPICAL (09:02)
[2023-11-09] MEDS: ENOXAPARIN 40 MG/0.4 ML SYRINGE SUB-Q (09:02)
--- NOTE | 2023-11-09 14:14 | PM.PNCARD ---
Progress Note: A&P Assessment and Plan (1) Ischemic cardiomyopathy: Code(s): I25.5 - Ischemic cardiomyopathy Status: Acute Plan 68-year-old man with: Coronary artery disease with severe ischemic cardiomyopathy and congestive heart failure. He is relatively stable but has tenuous hemodynamics with soft systolic blood pressure when attempts are made to initiate guideline directed medical therapy even at modest doses. He was placed on some midodrine last night which I do not wish to continue as it does not make sense to prescribe vasodilators and vasoconstrictors at the same time. I will give him 1 more dose of that this evening and then try stopping that altogether. If he is stable with reasonable blood pressure in ambulating tomorrow I will consider discharge at that time. As I mentioned in yesterday's note I will also anticipate referring him to the heart failure program at [facility] as he may well require advanced support not available here at [place]. Mt Baires MD [facility] Subjective Date/time seen: Date of service: 11/09/23 14:14 Interval history: Dre Coates is a 68-year-old with hypertension, hyperlipidemia, coronary artery disease, and ischemic cardiomyopathy with an EF of 17%.? He was initially seen by Dr. Jewell in May of 2023 for CHF and was found to have severe LV systolic dysfunction with an EF of 25%.? He underwent cardiac catheterization by Dr. Baires on 07/28/2023 and was found to have a diffusely diseased LAD with 80-90% stenosis in the mid LAD at the origin of the 2nd diagonal branch.? The left circumflex was 100% occluded as origin, trunk of the RCA was free of disease, RPDA patent and free of significant disease, RPL totally occluded at the origin.? He was referred to [facility] for high risk PCI and did have successful Impella supported PCI.? He was seen in the office for follow-up and was felt to be volume overloaded despite increasing oral diuretics over the past week.? Therefore, he was sent to the emergency department and admitted for decompensated heart failure Date of service 11/01/2023: Breathing a little easier. Abdominal distension has slightly improved. No chest pain. Continue furosemide 40 mg IV push b.i.d. Date of service 11/02/2023: Still feels a bit better but still has significant abdominal distention and lower extremity edema. No chest pain. Dobutamine added. Date of service 11/03/2023: Abdominal and lower extremity edema persistent, slowly improving. Less short of breath at rest, still has orthopnea. Scheduled thoracentesis. Date of service 11/04/2023: Ongoing LAND and orthopnea. Heart rate 90-100, systolic blood pressure runs in the 90s. On room air. Cumulative diuresis this admission was 1100 cc, per EMR, but this may be erroneous as pt says he's urinating a lot after IV furosemide and LE edema getting better. Getting thoracentesis today. Date of service 11/05/2023: Had thoracentesis yesterday with the removal of 1 L. However afterwards his blood pressure was running in the 70s so he received some boluses of normal saline, 1 bolus of albumin, and later his dobutamine was increased to 5 mics per kilos. BP was 90 mmHg this a.m., so we skipped a.m. meds. He feels fine, w/o weakness or dizziness. Date of service 11/06/2023: Blood pressure a little better, often systolic BP 100+. REmains on dobutamine 5 mcg. Back on diuretic and Entresto, with moderate diuresis. ' CT reviewed, small pleural effusions, large volume of ascites. Possible pneumonia. Had paracentesis of 2000 cc. chest x-ray also personally reviewed, ongoing CHF and left effusion. Date of service 11/07/23: BP stable today, able to get all his cardiac meds. 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 Feeling better. Lower extremity edema minimal at this point Date of service 11/08/2023: Patient feels relatively well describes no significant symptoms for the last couple of days. Long discussion again about life
--- NOTE | 2023-11-09 14:42 | PM.IMPN ---
Progress Note: A&P Assessment and Plan (1) CHF exacerbation: Qualifiers: Heart failure type: systolic Qualified Code(s): I50.23 - Acute on chronic systolic (congestive) heart failure Code(s): I50.9 - Heart failure, unspecified Status: Acute Assessment and Plan: Patient presents with SOB and found to have acute on chronic systolic and diastolic CHF. Echo in Jun 2023 showing EF 20-25% with grade I diastolic dysfunction. Cardiology consulted and appreciate their input. Chest CTA showing no PE but bilateral pleural effusion (L>>R), diffuse patchy groundglass infiltrates, ascites with nodular densities of the omentum Dobutamine started. Lasix IV started. Tolerating Spironolactone, Toprol XL, Empagliflozin and Entresto. He has refused LifeVest in the past but now agreeable so LifeVest ordered and now in place. Thoracentesis performed on 11/04/23 with removal of 1L of dark brownish fluid. No studies sent. I/O -3.6L HoTN so Lasix IV stopped. Dobutamine weaned off Strict I&Os, daily BMP, daily weights, low-sodium diet Holding other medications if needed depending on BP. (2) Ischemic cardiomyopathy: Code(s): I25.5 - Ischemic cardiomyopathy Status: Acute Assessment and Plan: As above. [facility] 07/28/23 showing right coronary dominant circulation with severe ischemic cardiomyopathy, total occlusion of the proximal circumflex as well as total occlusion of the RPL branch the right coronary. He had diffuse disease and heavily calcified LAD with high-grade stenosis in the midportion and severe LV systolic dysfunction with EF of 20%. Medical management as above. Will need outpatient management at the [facility] and consideration for ICD Life vest in place (3) Coronary artery disease: Code(s): I25.10 - Atherosclerotic heart disease of [place] coronary artery without angina pectoris Status: Acute Assessment and Plan: As above (4) Hypotension: Qualifiers: Hypotension type: unspecified hypotension type Qualified Code(s): I95.9 - Hypotension, unspecified Code(s): I95.9 - Hypotension, unspecified Status: Acute Assessment and Plan: Patient presents with CHF exacerbation and HoTN c/w cardiogenic shock. Dobutamine started. has been tolerating treatment including Lasix IV while on Dobutamine Dobutamine weaned off and now with SBP dropping into 60's Cardiology adjusting his medications. (5) Type 2 diabetes mellitus: Code(s): E11.9 - Type 2 diabetes mellitus without complications Status: Acute Assessment and Plan: A1c 8.4. The patient's blood glucose was reviewed on 11/09 Glucose remains well controlled. Patient refusing AccuCheks so stopped. Hypoglycemia protocol available as needed. (6) Diarrhea: Code(s): R19.7 - Diarrhea, unspecified Status: Acute Assessment and Plan: Patient was having large, watery stools with incontinence. Suspect ischemic colitis related to his poor cardiac output so CT ordered. Stool studies ordered and Flagyl started 11/05. CT A/P showing small right and moderate left pleural effusion, GG and airspace opacity in LLL and lingula c/w PNA and large volume of ascites. No evidence of cirrhosis, colitis or nodular densities of omentum. Stool studies pending. Diarrhea improving. Paracentesis performed 11/06 with 1.9L of clear yellow fluid. No cell count but mostly macrophages at 51%. Other studies pending. Path showing numerous mesothelial cells with scattered neutrophils and erythrocytes; subpopulation of atypical cells with increased NC ratio. Cytology pending. Complete Flagyl x 7 days Plan DVT prophylaxis with Lovenox Code status full code Disposition - increase activity Subjective Date/time seen: 11/09/23 14:42 Interval history: 68-year-old male with ischemic cardiomyopathy and an EF of 20-25% is presenting with heart failure exacerb
[2023-11-09] MEDS: traZODone HCL 50 MG TABLET PO (21:37)
[2023-11-09] MEDS: ESCITALOPRAM OXALATE 10 MG TABLET PO (21:37)
[2023-11-09] MEDS: MIDODRINE HCL 10 MG TABLET PO (21:38)
[2023-11-10] VITALS (17 sets, daily range): BP systolic 81–104; BP diastolic 42–64; PULSE 81–100; RESP 14–96; TEMP 36.4–36.6; O2SAT 18–100
[2023-11-10 04:19] LABS: Basophils Percent Auto 0.2 % (0.2-1.2); Eosinophils Absolute Auto 0.3 K/mm3 (0-0.3); Eosinophils Percent Auto 4.5 % (0-4.4); Hematocrit 35.7 % (42.0-52.0); Hemoglobin 11.2 g/dL (14.0-18.0); Immature Granulocyte Absolute 0.02 K/mm3 (0.00-0.031); Immature Granulocyte Percent A 0.3 % (0-0.5); Lymphocytes Absolute Auto 1.12 K/mm3 (0.9-3.2); Lymphocytes Percent Auto 17.5 % (18.3-44.2); Mean Corpuscular HGB Conc 31.4 g/dl (32-36); Mean Corpuscular Hemoglobin 28.5 pg (26-34); Mean Corpuscular Volume 90.8 fl (80-100); Mean Platelet Volume 10.5 fl (7.4-10.4); Monocytes Absolute Auto 0.7 K/mm3 (0.1-0.6); Monocytes Percent Auto 11.5 % (2.6-8.5); Neutrophils Absolute Auto 4.2 K/mm3 (1.3-6.7); Platelet Count Result 264 k/mm3 (150-375); Red Blood Count 3.93 M/mm3 (4.6-6.20); Red Cell Distribution Width 16.1 % (11.5-14.5); White Blood Count 6.4 K/mm3 (4.5-10.0)
[2023-11-10 04:37] LABS: Alanine Aminotransferase 25 U/L (6-50); Albumin Level 3.7 g/dL (3.5-5.1); Alkaline Phosphatase 110 U/L (38-126); Anion Gap 5 mmol/L (8-16); Aspartate Amino Transferase 47 U/L (17-59); Blood Urea Nitrogen 38 mg/dL (9-20); Calcium 8.7 mg/dL (8.4-10.2); Carbon Dioxide 30 mmol/L (22-30); Chloride 101 mmol/L (98-107); Estimated CRCL calculation 46 ml/min; Estimated Glomerular Filt Rate 55; Glucose 109 mg/dL (65-110); Potassium 4.5 mmol/L (3.4-5.0); Sodium 136 mmol/L (137-145)
[2023-11-10] MEDS: metroNIDAZOLE 500 MG TABLET PO ×3 (05:16→21:11)
[2023-11-10 08:10] LABS: Glucose Peritoneal Fluid 126 mg/dL; LDH Peritoneal Fluid 175 U/L (<63); Total Protein Peritoneal Fluid 4.1 g/dL
[2023-11-10] MEDS: ATORVASTATIN 40 MG TABLET PO (09:16)
[2023-11-10] MEDS: EMPAGLIFLOZIN 10 MG TABLET PO (09:16)
[2023-11-10] MEDS: ENOXAPARIN 40 MG/0.4 ML SYRINGE SUB-Q (09:16)
[2023-11-10] MEDS: THIAMINE HCL 100 MG TABLET PO (09:17)
[2023-11-10] MEDS: SACUBITRIL/VALSARTAN 24-26 MG TABLET 1 TAB PO (09:17)
[2023-11-10] MEDS: SPIRONOLACTONE 25 MG TABLET PO (09:17)
[2023-11-10] MEDS: ASCORBIC ACID 500 MG TABLET PO (09:17)
[2023-11-10] MEDS: ASPIRIN 81 MG ENTERIC TABLET PO (09:17)
[2023-11-10] MEDS: CLOPIDOGREL BISULFATE 75 MG TABLET PO (09:17)
[2023-11-10] MEDS: EUCERIN CREAM 120 GM JAR 1 APPLIC TOPICAL (09:18)
--- NOTE | 2023-11-10 10:45 | PM.PNCARD ---
Progress Note: A&P Assessment and Plan (1) Ischemic cardiomyopathy: Code(s): I25.5 - Ischemic cardiomyopathy Status: Acute Assessment and Plan: EF 17% by most recent echo. Continue guideline directed medical therapy with Entresto, Toprol-XL, spironolactone, jardiance. Will decrease spironolactone to 12.5mg and Entresto to 12-13mg since BP is running soft Sent referral to Heart Failure clinic at [facility] Titrate meds as outpatient as BP allows (2) CHF exacerbation: Qualifiers: Heart failure type: systolic Qualified Code(s): I50.23 - Acute on chronic systolic (congestive) heart failure Code(s): I50.9 - Heart failure, unspecified Status: Acute Assessment and Plan: Acute on chronic systolic heart failure despite increased dose of diuretics at home. Still volume-overloaded, but at least he hs a blood pressure we can work with. Furosemide on hold [employer] has been weaned off Daily weights. States his dry weight is 160lbs Low-sodium diet CHF counseling Home tomorrow if BP improved (3) Pleural effusion: Code(s): J90 - Pleural effusion, not elsewhere classified Status: Acute Assessment and Plan: Thoracentesis 11/04/2023 of 1 L. (4) Hypotension: Qualifiers: Hypotension type: unspecified hypotension type Qualified Code(s): I95.9 - Hypotension, unspecified Code(s): I95.9 - Hypotension, unspecified Status: Acute Assessment and Plan: He is chronically hypotensive related to his poor cardiac output and medical therapy for his cardiomyopathy. He is asymptomatic, but some meds were held recently because of worsening hypotension and patient required some IV fluids when his SBP was in the 70s Friday after his thoracentesis. --Furosemide on hold currently because of blood pressure, but will need diuretic at time of discharge. Consider shifting to torsemide or bumex (5) At risk for sudden cardiac : Code(s): Z91.89 - Other specified personal risk factors, not elsewhere classified Status: Acute Assessment and Plan: Life vest in place (6) Hyperlipidemia: Code(s): E78.5 - Hyperlipidemia, unspecified Status: Acute Assessment and Plan: Continue statin Subjective Date/time seen: 11/10/23 10:45 Interval history: Dre Coates is a 68-year-old with hypertension, hyperlipidemia, coronary artery disease, and ischemic cardiomyopathy with an EF of 17%.? He was initially seen by Dr. Jewell in May of 2023 for CHF and was found to have severe LV systolic dysfunction with an EF of 25%.? He underwent cardiac catheterization by Dr. Baires on 07/28/2023 and was found to have a diffusely diseased LAD with 80-90% stenosis in the mid LAD at the origin of the 2nd diagonal branch.? The left circumflex was 100% occluded as origin, trunk of the RCA was free of disease, RPDA patent and free of significant disease, RPL totally occluded at the origin.? He was referred to [facility] for high risk PCI and did have successful Impella supported PCI.? He was seen in the office for follow-up and was felt to be volume overloaded despite increasing oral diuretics over the past week.? Therefore, he was sent to the emergency department and admitted for decompensated heart failure Date of service 11/01/2023: Breathing a little easier. Abdominal distension has slightly improved. No chest pain. Continue furosemide 40 mg IV push b.i.d. Date of service 11/02/2023: Still feels a bit better but still has significant abdominal distention and lower extremity edema. No chest pain. Dobutamine added. Date of service 11/03/2023: Abdominal and lower extremity edema persistent, slowly improving. Less short of breath at rest, still has orthopnea. Scheduled thoracentesis. Date of service 11/04/2023: Ongoing LAND and orthopnea. Heart rate 90-100, systolic blood pressure runs in the 90s. On room air. Cumulative diuresis this admission was
--- NOTE | 2023-11-10 15:18 | PM.IMPN ---
Progress Note: A&P Assessment and Plan (1) CHF exacerbation: Qualifiers: Heart failure type: systolic Qualified Code(s): I50.23 - Acute on chronic systolic (congestive) heart failure Code(s): I50.9 - Heart failure, unspecified Status: Acute Assessment and Plan: Patient presents with SOB and found to have acute on chronic systolic and diastolic CHF. Echo in Jun 2023 showing EF 20-25% with grade I diastolic dysfunction. Cardiology consulted and appreciate their input. Chest CTA showing no PE but bilateral pleural effusion (L>>R), diffuse patchy ground glass infiltrates, ascites with nodular densities of the omentum Dobutamine started. Lasix IV started. Also was on Spironolactone, Toprol XL, Empagliflozin and Entresto. He has refused LifeVest in the past but now agreeable so LifeVest ordered and now in place. Thoracentesis performed on 11/04/23 with removal of 1L of dark brownish fluid. No studies sent. I/O -2.9L Dobutamine weaned off. HoTN so Lasix IV stopped. Spirono and Entresto dose decreased. Strict I&Os, daily BMP, daily weights, low-sodium diet If remains stable, hopefully home tomorrow. (2) Ischemic cardiomyopathy: Code(s): I25.5 - Ischemic cardiomyopathy Status: Acute Assessment and Plan: As above. [facility] 07/28/23 showing right coronary dominant circulation with severe ischemic cardiomyopathy, total occlusion of the proximal circumflex as well as total occlusion of the RPL branch the right coronary. He had diffuse disease and heavily calcified LAD with high-grade stenosis in the midportion and severe LV systolic dysfunction with EF of 20%. Medical management as above. Will need outpatient management at the [facility] and consideration for ICD Life vest in place (3) Coronary artery disease: Code(s): I25.10 - Atherosclerotic heart disease of [place] coronary artery without angina pectoris Status: Acute Assessment and Plan: As above (4) Hypotension: Qualifiers: Hypotension type: unspecified hypotension type Qualified Code(s): I95.9 - Hypotension, unspecified Code(s): I95.9 - Hypotension, unspecified Status: Acute Assessment and Plan: Patient presents with CHF exacerbation and HoTN c/w cardiogenic shock. Dobutamine started. has was tolerating treatment including Lasix IV while on Dobutamine Dobutamine weaned off and now with hypotension Cardiology adjusting his medications. (5) Type 2 diabetes mellitus: Code(s): E11.9 - Type 2 diabetes mellitus without complications Status: Acute Assessment and Plan: A1c 8.4. The patient's blood glucose was reviewed on 11/10 Glucose remains well controlled. Patient refusing AccuCheks so stopped. Hypoglycemia protocol available as needed. (6) Diarrhea: Code(s): R19.7 - Diarrhea, unspecified Status: Acute Assessment and Plan: Patient was having large, watery stools with incontinence. Suspect ischemic colitis related to his poor cardiac output so CT ordered. Stool studies ordered and Flagyl started 11/05. CT A/P showing small right and moderate left pleural effusion, GG and airspace opacity in LLL and lingula c/w PNA and large volume of ascites. No evidence of cirrhosis, colitis or nodular densities of omentum. Stool studies pending. Diarrhea improving. Paracentesis performed 11/06 with 1.9L of clear yellow fluid. No cell count but mostly macrophages at 51%. Other studies pending. Path showing numerous mesothelial cells with scattered neutrophils and erythrocytes; subpopulation of atypical cells with increased NC ratio. Cytology is neagtive for malignancy. Complete Flagyl x 7 days Plan DVT prophylaxis with Lovenox Code status full code Disposition - increase activity Subjective Date/time seen: 11/10/23 15:18 Interval history: 68-year-old male with ischemic cardiomyopathy and an EF of 20-25% is
[2023-11-10] MEDS: SACUBITRIL/VALSARTAN 12-13 MG TABLET 1 TAB PO (16:28)
[2023-11-10] MEDS: traZODone HCL 50 MG TABLET PO (21:11)
[2023-11-10] MEDS: ESCITALOPRAM OXALATE 10 MG TABLET PO (21:11)
[2023-11-11] VITALS (16 sets, daily range): BP systolic 79–96; BP diastolic 51–66; PULSE 83–97; RESP 18–20; TEMP 35.7–36.3; O2SAT 94–98
[2023-11-11 05:07] LABS: Anion Gap 8 mmol/L (8-16); Blood Urea Nitrogen 32 mg/dL (9-20); Calcium 8.9 mg/dL (8.4-10.2); Carbon Dioxide 28 mmol/L (22-30); Chloride 101 mmol/L (98-107); Estimated CRCL calculation 54 ml/min; Estimated Glomerular Filt Rate > 60; Glucose 120 mg/dL (65-110); Potassium 4.1 mmol/L (3.4-5.0); Sodium 137 mmol/L (137-145)
[2023-11-11] MEDS: metroNIDAZOLE 500 MG TABLET PO ×2 (05:51→14:10)
[2023-11-11] MEDS: SPIRONOLACTONE 12.5 MG TABLET PO (08:50)
[2023-11-11] MEDS: METOPROLOL SUCCINATE EXT REL 25 MG TABCR PO (08:50)
[2023-11-11] MEDS: ASCORBIC ACID 500 MG TABLET PO (08:50)
[2023-11-11] MEDS: SACUBITRIL/VALSARTAN 12-13 MG TABLET 1 TAB PO (08:50)
[2023-11-11] MEDS: ATORVASTATIN 40 MG TABLET PO (08:50)
[2023-11-11] MEDS: EMPAGLIFLOZIN 10 MG TABLET PO (08:50)
[2023-11-11] MEDS: ASPIRIN 81 MG ENTERIC TABLET PO (08:50)
[2023-11-11] MEDS: THIAMINE HCL 100 MG TABLET PO (08:50)
[2023-11-11] MEDS: CLOPIDOGREL BISULFATE 75 MG TABLET PO (08:50)
[2023-11-11] MEDS: EUCERIN CREAM 120 GM JAR 1 APPLIC TOPICAL (08:51)
[2023-11-11] MEDS: ENOXAPARIN 40 MG/0.4 ML SYRINGE SUB-Q (08:51)
--- NOTE | 2023-11-11 09:18 | PM.PNCARD ---
Progress Note: A&P Assessment and Plan (1) Ischemic cardiomyopathy: Code(s): I25.5 - Ischemic cardiomyopathy Status: Acute Assessment and Plan: EF 17% by most recent echo. Continue guideline directed medical therapy with Entresto, Toprol-XL, spironolactone, jardiance. Will decrease spironolactone to 12.5mg and Entresto to 12-13mg since BP is running soft. Sent referral to Heart Failure clinic at [facility] Titrate meds as outpatient as BP allows OK for discharge home today from a cardiac standpoint. (2) CHF exacerbation: Qualifiers: Heart failure type: systolic Qualified Code(s): I50.23 - Acute on chronic systolic (congestive) heart failure Code(s): I50.9 - Heart failure, unspecified Status: Acute Assessment and Plan: Acute on chronic systolic heart failure despite increased dose of diuretics at home. Still volume-overloaded, but at least he hs a blood pressure we can work with. Shifting furosemide to torsemide. First dose given this morning. DO[employer]AL [employer]GERY has been weaned off Daily weights. States his dry weight is 160lbs Low-sodium diet CHF counseling Home today (3) Pleural effusion: Code(s): J90 - Pleural effusion, not elsewhere classified Status: Acute Assessment and Plan: Thoracentesis 11/04/2023 of 1 L. (4) Hypotension: Qualifiers: Hypotension type: unspecified hypotension type Qualified Code(s): I95.9 - Hypotension, unspecified Code(s): I95.9 - Hypotension, unspecified Status: Acute Assessment and Plan: He is chronically hypotensive related to his poor cardiac output and medical therapy for his cardiomyopathy. He is asymptomatic, but some meds were held recently because of worsening hypotension and patient required some IV fluids when his SBP was in the 70's. BP has improved and is back to patient's baseline. He is asymptomatic. (5) At risk for sudden cardiac : Code(s): Z91.89 - Other specified personal risk factors, not elsewhere classified Status: Acute Assessment and Plan: Life vest in place (6) Hyperlipidemia: Code(s): E78.5 - Hyperlipidemia, unspecified Status: Acute Assessment and Plan: Continue statin Subjective Date/time seen: 11/11/23 09:18 Interval history: Dre Coates is a 68-year-old with hypertension, hyperlipidemia, coronary artery disease, and ischemic cardiomyopathy with an EF of 17%.? He was initially seen by Dr. Jewell in May of 2023 for CHF and was found to have severe LV systolic dysfunction with an EF of 25%.? He underwent cardiac catheterization by Dr. Baires on 07/28/2023 and was found to have a diffusely diseased LAD with 80-90% stenosis in the mid LAD at the origin of the 2nd diagonal branch.? The left circumflex was 100% occluded as origin, trunk of the RCA was free of disease, RPDA patent and free of significant disease, RPL totally occluded at the origin.? He was referred to [place] for high risk PCI and did have successful Impella supported PCI.? He was seen in the office for follow-up and was felt to be volume overloaded despite increasing oral diuretics over the past week.? Therefore, he was sent to the emergency department and admitted for decompensated heart failure Date of service 11/01/2023: Breathing a little easier. Abdominal distension has slightly improved. No chest pain. Continue furosemide 40 mg IV push b.i.d. Date of service 11/02/2023: Still feels a bit better but still has significant abdominal distention and lower extremity edema. No chest pain. Dobutamine added. Date of service 11/03/2023: Abdominal and lower extremity edema persistent, slowly improving. Less short of breath at rest, still has orthopnea. Scheduled thoracentesis. Date of service 11/04/2023: Ongoing LNAD and orthopnea. Heart rate 90-100, systolic blood pressure runs in the 90s. On room air. Cumulative diuresis this admission was 1100 cc, per
[2023-11-11] MEDS: TORSEMIDE 20 MG TABLET PO (10:15)
[2023-11-11 11:03] LABS: Albumin Peritoneal Fluid 2.2 g/dL
--- NOTE | 2023-11-11 14:48 | PM.DS ---
DS: Admitting Diagnosis Discharge Date 11/11/23 Admitting Diagnosis Congestive heart failure, sent from air transport professionals's office DS: Discharge Diagnosis Discharge Diagnosis (1) CHF exacerbation: Qualifiers: Heart failure type: systolic Qualified Code(s): I50.23 - Acute on chronic systolic (congestive) heart failure Code(s): I50.9 - Heart failure, unspecified Status: Acute (2) Ischemic cardiomyopathy: Code(s): I25.5 - Ischemic cardiomyopathy Status: Acute (3) Coronary artery disease: Code(s): I25.10 - Atherosclerotic heart disease of [place] coronary artery without angina pectoris Status: Acute (4) Hypotension: Qualifiers: Hypotension type: unspecified hypotension type Qualified Code(s): I95.9 - Hypotension, unspecified Code(s): I95.9 - Hypotension, unspecified Status: Acute (5) Type 2 diabetes mellitus: Code(s): E11.9 - Type 2 diabetes mellitus without complications Status: Acute (6) Diarrhea: Code(s): R19.7 - Diarrhea, unspecified Status: Acute DS: Summary Hospital Course Reason for hospitalization: 68-year-old male with ischemic cardiomyopathy and an EF of 20-25% is presenting with heart failure exacerbation. Please see H&P for details. Hospital Course: Patient presents with SOB and found to have acute on chronic systolic and diastolic CHF. Echo in Jun 2023 showing EF 20-25% with grade I diastolic dysfunction. Cardiology consulted and appreciate their input. Chest CTA showing no PE but bilateral pleural effusion (L>>R), diffuse patchy ground glass infiltrates, ascites with nodular densities of the omentum. Patient presents with HoTN c/w cardiogenic shock. Dobutamine started.? Lasix IV started. Also was on Spironolactone, Toprol XL, Empagliflozin and Entresto. He had refused LifeVest in the past but now was agreeable so LifeVest ordered and now in place. Thoracentesis performed on 11/04/23 with removal of 1L of dark brownish fluid. No studies sent. He has an ischemic cardiomyopathy. [facility] 07/28/23 showing right coronary dominant circulation with severe ischemic cardiomyopathy, total occlusion of the proximal circumflex as well as total occlusion of the RPL branch the right coronary.? He had diffuse disease and heavily calcified LAD with high-grade stenosis in the midportion and severe LV systolic dysfunction with EF of 20%. Will need outpatient management at the [facility] and consideration for ICD. Patient was having large, watery stools with incontinence. Suspect ischemic colitis related to his poor cardiac output so CT ordered. Stool studies ordered and Flagyl started 11/05. CT A/P showing small right and moderate left pleural effusion, GG and airspace opacity in LLL and lingula c/w PNA and large volume of ascites. No evidence of cirrhosis, colitis or nodular densities of omentum. Stool studies negative. Paracentesis performed 11/06 with 1.9L of clear yellow fluid. No cell count but mostly macrophages at 51%. Pathology showing numerous mesothelial cells with scattered neutrophils and erythrocytes; subpopulation of atypical cells with increased NC ratio but cytology is neagtive for malignancy. Diarrhea better and stool studies negative. Dobutamine weaned off. HoTN recurred so Lasix IV stopped and Spironolactone and Entresto doses decreased. He remained HoTN but was asymptomatic from this. Orthostatic vital signs showing very little drop in blood pressure when standing. Cardiology was aware. He overall did well but senior living prognosis is poor. He was able to be discharged home on 11/11/23. Status at Discharge Cognitive/behavioral status at discharge: stable Time Spent with Patient Time attestation: Total time spent providing and/or coordinating discharge services: 35 minutes Time spent: Greater than 30 minutes Exam Narrative: AF 96.2 84/54 87 18 96% ra Gen - NARD Chest - CTA bilaterally, nml RR. LifeV
--- NOTE | 2023-11-12 09:25 | PC.NURSE ---
Ascitic cultures are negative. Dr. Justo zamora.
== END 2023-11-11 15:38 | disposition home or self-care (01) | DRG 302 ==
LOC: ANHED 13:51 → ANHIMU 14:46
PROVIDERS: Emergency Medicine; Physician Assistant; Admitting Provider Student in an Organized Health Care Education/Training Program; Emergency Provider Physician Assistant; PCP Physician Assistant; Visit Provider Internal Medicine
DX: I25.5 Ischemic cardiomyopathy (principal); I50.43 Acute on chronic combined systolic (congestive) and diastolic (congestive) heart failure; J90 Pleural effusion, not elsewhere classified; I11.0 Hypertensive heart disease with heart failure; I95.9 Hypotension, unspecified; I25.10 Atherosclerotic heart disease of native coronary artery without angina pectoris; E11.9 Type 2 diabetes mellitus without complications; E78.5 Hyperlipidemia, unspecified; R19.5 Other fecal abnormalities; Z95.5 Presence of coronary angioplasty implant and graft; Z87.891 Personal history of nicotine dependence; Z79.85 Long-term (current) use of injectable non-insulin antidiabetic drugs; Z79.02 Long term (current) use of antithrombotics/antiplatelets
CPT/HCPCS: 32555; 36415; 49083; 71045; 71275; 74176; 80048; 80053; 81001; 82042; 82945; 82948; 83036; 83615; 83735; 83880; 84157; 84443; 84484; 85025; 85027; 85380; 85610; 85730; 87045; 87070; 87075; 87205; 87427; 87449; 88108; 88305; 89051; 93005; 93970; 99285; A9270; G0378; J1250; J1650; J1815; J1940; J7030; J7040; J7050; P9047; Q9967

== ENCOUNTER 2024-01-20 08:17 | Inpatient (IN) | payer MEDICARE, SELFPAY ==
[2024-01-20] VITALS (42 sets, daily range): BP systolic 79–116; BP diastolic 59–83; PULSE 77–109; RESP 20–39; TEMP 36.4–37.2; O2SAT 86–100; BMI 24.3
--- NOTE | 2024-01-20 | ECHO_ITS ---
Patient Info Name: Dre Coates Age: 68 years : 1955 Gender: Male Ht: 67 in Wt: 146 lbs BSA: 1.77 m2 HR: 96 bpm BP: 88 / 60 mmHg Heart Rhythm: Sinus Rhythm Technical Quality: Fair Exam Date: 01/20/2024 4:11 PM Exam Location: Echo Lab Patient Status: Inpatient Admit Date: 01/20/2024 Staff Ordering Physician: Ted Naik MD Telephone Maintainer: Irina Rachel RDCS Attending Provider: Rah Calvo MD Exam Type: CA echo limited w contrast Study Info Indications - LV AND RV Function Limited two-dimensional transthoracic echocardiogram is performed with contrast. Contrast/Agitated Saline Contrast/Ag. Saline: Definity Amount: 2.00 ml Administered By: Irina Rachel RDCS Existing IV Access: Yes IV Access Condition: patent with no signs of infiltration Summary 1. Limited study with limited views. Definity contrast administered. 2. Left ventricular chamber dimension is mildly enlarged. 3. Left ventricular systolic function is severely reduced, estimated at 25-30% with dyskinetic apex. 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 4. There is no increased left ventricular wall thickness. 5. Left ventricular septal wall motion is abnormal with septal motion related to bundle branch block. 6. There is moderate tricuspid valve regurgitation. 7. Severe pulmonary hypertension, estimated pulmonary arterial systolic pressure is 67 mmHg. 8. Large left pleural effusion. Left Ventricle Left ventricular chamber dimension is mildly enlarged. Left ventricular systolic function is severely reduced, estimated at 25-30% with dyskinetic apex. 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 There is no increased left ventricular wall thickness. Left ventricular septal wall motion is abnormal with septal motion related to bundle branch block. Limited study with limited views. Definity contrast administered. Right Ventricle Right ventricular chamber dimension is mildly enlarged. Right ventricular systolic function is reduced. Left Atria Left atrial chamber dimension is normal. Right Atria Right atrial chamber dimension is moderately enlarged. Aortic Valve The aortic valve is not well visualized. Pulmonic Valve The pulmonic valve is not well visualized. Mitral Valve The mitral valve has thickened leaflets. The mitral valve annulus is moderately calcified. Tricuspid Valve The tricuspid valve leaflets are normal. There is moderate tricuspid valve regurgitation. Severe pulmonary hypertension, estimated pulmonary arterial systolic pressure is 67 mmHg. Pericardium/Pleural The pericardium appears normal. There is small pericardial effusion. Large left pleural effusion. Inferior Vena Cava Normal inferior vena cava with no collapse upon inspiration consistent with elevated right atrial pressure, 10 mmHg. Aorta The aortic root size at the sinus of Valsalva is not well visualized. Tricuspid Valve Name Value Normal TV Regurgitation Doppler TR Peak Velocity 378 cm/s TR Peak Gradient 57 mmHg Estimated PAP/RSVP RA Pressure 10 mmHg <=5 PA Systolic Pressure 67 mmHg <36 RV Systolic P
--- NOTE | ~2024-01-20 | XR_ITS ---
EXAMINATION: XR chest 1V portable DATE: 01/21/2024 08:38 INDICATION: Hypoxia. TECHNIQUE: A single frontal view of the chest was obtained. COMPARISON: Chest single view 01/20/2024 FINDINGS: There are small right and moderate-sized left pleural effusions. There are airspace opaciti es in the mid and lower lung zones with a basilar predominance. No pneumothorax. Cardiomegaly is note d. IMPRESSION: 1. Stable small right and moderate-sized left pleural effusions. 2. Airspace opacities in the mid and lower lung zones with a basilar predominance with worsening on t he right, consistent with atelectasis versus pneumonia. 3. Cardiomegaly. Reviewed, dictated and finalized at location A. IMPRESSION: 1. Stable small right and moderate-sized left pleural effusions. 2. Airspace opacities in the mid and lower lung zones with a basilar predominan ce with worsening on the right, consistent with atelectasis versus pneumonia. 3. Cardiomegaly.
--- NOTE | ~2024-01-20 | XR_ITS ---
XR chest ET placement DATE: 01/25/2024 03:00 INDICATION: Post intubation TECHNIQUE: Portable AP chest on January 25, 2024 at 0251 hours COMPARISON: January 21, 2024 portable AP chest at 0831 hours FINDINGS: ET tube in satisfactory position 4.2 cm above ying. NG tube in stomach. No central lines. There is pulmonary vascular congestion, prominence of the minor fissure suggesting subpleural edema. Bilateral central and lower lung zone infiltrates, greater on the left, and suggestion of small pleur al effusions. IMPRESSION: ET and NG tubes in satisfactory position Congestive changes and bilateral mid and lower lung infiltrates and small pleural effusions, mildly i ncreased since January 21, 2024 Reviewed, dictated and finalized at Location A. Reviewed, dictated and finalized at location A. IMPRESSION: ET and NG tubes in satisfactory position Congestive changes and bilateral mid and lower lung infiltrates and small pleur al effusions, mildly increased since January 21, 2024
--- NOTE | ~2024-01-20 | US_ITS ---
EXAMINATION: US thoracentesis DATE: 01/21/2024 12:54 INDICATION: pleural effusion TECHNIQUE: The procedure and its risks, benefits, and alternatives were discussed with the patient. P otential risks discussed included bleeding, infection, and pneumothorax. The patient understood the r isks and agreed to proceed. The skin was prepped and draped in sterile fashion. 1% lidocaine was used for local anesthesia. Under ultrasound guidance, a 5 Fr catheter with trochar was advanced into the left pleural effusion. Fluid was aspirated. The catheter was removed, and a dressing was applied. The re were no immediate complications. FINDINGS: Ultrasound images demonstrate a left pleural effusion and the catheter within the fluid. IMPRESSION: 1. Successful ultrasound-guided thoracentesis yielding 1000 mL of yellow fluid. Reviewed, dictated and finalized at location A. IMPRESSION: 1. Successful ultrasound-guided thoracentesis yielding 1000 mL of yellow fluid .
--- NOTE | ~2024-01-20 | US_ITS ---
EXAMINATION: US thoracentesis DATE: 01/20/2024 16:27 INDICATION: pleural effusion TECHNIQUE: The procedure and its risks, benefits, and alternatives were discussed with the patient. P otential risks discussed included bleeding, infection, and pneumothorax. The patient understood the r isks and agreed to proceed. The skin was prepped and draped in sterile fashion. 1% lidocaine was used for local anesthesia. Under ultrasound guidance, a 5 Fr catheter with trochar was advanced into the right pleural effusion. Fluid was aspirated. The catheter was removed, and a dressing was applied. Th ere were no immediate complications. FINDINGS: Ultrasound images demonstrate a right pleural effusion and the catheter within the fluid. IMPRESSION: 1. Successful ultrasound-guided thoracentesis yielding 1000 mL of yellow fluid. Reviewed, dictated and finalized at location A. IMPRESSION: 1. Successful ultrasound-guided thoracentesis yielding 1000 mL of yellow fluid .
--- NOTE | ~2024-01-20 | XR_ITS ---
EXAMINATION: [id number] Exam Date/Time: 01/20/2024 16:45 CDT HISTORY: Thoracentesis POST THORA Comparison: X-ray chest and CT chest, same date. RESULT: Lines, tubes, and devices: None. Lungs and pleura: Left basilar segmental and right medial basilar subsegmental airspace disease. Mod erate left and mild right costophrenic angle blunting. Cardiomediastinal silhouette: Stable. Other: No acute osseous or upper abdominal finding. IMPRESSION: No pneumothorax. Bibasilar segmental and subsegmental consolidation/atelectasis. Moderate left and sm all right pleural effusions Reviewed, dictated and finalized at location K. IMPRESSION: No pneumothorax. Bibasilar segmental and subsegmental consolidation/atelectasis . Moderate left and small right pleural effusions
--- NOTE | ~2024-01-20 | US_ITS ---
EXAMINATION: US paracentesis abd w/image DATE: 01/20/2024 16:27 INDICATION: Ascites. TECHNIQUE: The procedure and its risks, benefits, and alternatives were discussed with the patient. P otential risks discussed included bleeding and infection. The skin was prepped and draped in sterile fashion. 1% lidocaine was used for local anesthesia. Under ultrasound guidance, a 5 Fr catheter with trochar was advanced into the ascites in the left lower quadrant. Fluid was aspirated. The catheter w as removed, and a dressing was applied. There were no immediate complications. FINDINGS: Ultrasound images demonstrate ascites and the catheter within the fluid. IMPRESSION: 1. Successful ultrasound-guided paracentesis yielding 2400 mL of yellow fluid. Reviewed, dictated and finalized at location A.
--- NOTE | ~2024-01-20 | XR_ITS ---
EXAMINATION: [id number] DATE: 01/21/2024 12:37 INDICATION: Right pleural effusion status post thoracentesis. TECHNIQUE: A single frontal view of the chest was obtained. COMPARISON: Chest 2 views 01/20/2024 FINDINGS: There is a small left pleural effusion. There are airspace opacities in the mid and lower l nico zones with a basilar predominance. No pneumothorax. Cardiomegaly is noted. There are old healed r ight rib fractures. IMPRESSION: 1. Small left pleural effusion. 2. Airspace opacities in the mid and lower lung zones with a basilar predominance, consistent with at electasis versus pneumonia. 3. Cardiomegaly. Reviewed, dictated and finalized at location A. IMPRESSION: 1. Small left pleural effusion. 2. Airspace opacities in the mid and lower lung zones with a basilar predominan ce, consistent with atelectasis versus pneumonia. 3. Cardiomegaly.
--- NOTE | ~2024-01-20 | US_ITS ---
EXAMINATION: US paracentesis abd w/image DATE: 01/23/2024 17:16 INDICATION: Ascites. TECHNIQUE: The procedure and its risks and benefits were discussed with the patient. Potential risks discussed included bleeding and infection. The skin was prepped and draped in sterile fashion. 1% lid ocaine was used for local anesthesia. Under ultrasound guidance, a 5 Fr catheter with trochar was adv anced into the ascites in the right abdomen. Fluid was aspirated into vacuum bottles. The catheter wa s removed, and a dressing was applied. There were no immediate complications. FINDINGS: Ultrasound images demonstrate ascites and the catheter within the fluid. IMPRESSION: 1. Successful ultrasound-guided paracentesis yielding 1750 mL of angélica-colored fluid. Reviewed, dictated and finalized at location A.
--- NOTE | ~2024-01-20 | XR_ITS ---
EXAMINATION: XR chest 2V DATE: 01/20/2024 09:24 INDICATION: Shortness of breath. TECHNIQUE: Frontal and lateral views of the chest were obtained. COMPARISON: Chest single view 11/04/2023 FINDINGS: There are small pleural effusions. There are airspace opacities at the lung bases. No pneum othorax. The heart size is obscured. There are old healed right rib fractures. IMPRESSION: 1. Worsened small pleural effusions. 2. Worsened airspace opacities at the lung bases, consistent with atelectasis versus pneumonia. Reviewed, dictated and finalized at location A. IMPRESSION: 1. Worsened small pleural effusions. 2. Worsened airspace opacities at the lung bases, consistent with atelectasis v ersus pneumonia.
--- NOTE | ~2024-01-20 | CT_ITS ---
EXAMINATION:CT diagnostic chest wo con DATE: 01/20/2024 11:47 INDICATION: Shortness of breath. TECHNIQUE: Computed tomography (CT) of the chest was performed without intravenous contrast. Automate d exposure control and iterative reconstruction technique were employed. The dose-length product (DLP ) was 257.19 mGy-cm. COMPARISON: Chest 2 views 01/20/2024, chest CT 10/31/2023 FINDINGS: There are moderate-sized pleural effusions. There is bilateral atelectasis with a dependent predominance. Cardiomegaly is noted. There are coronary artery calcifications. There is a small maldonado cardial effusion. There is mild bilateral gynecomastia. There is a 14 mm nodule in right thyroid lobe , likely not clinically significant. Body wall edema is noted, worst in left axilla. There is at leas t a moderate volume of ascites. There is mild thoracic spondylosis. IMPRESSION: 1. Anasarca including moderate pleural effusions, small pericardial effusion, and at least moderate v olume of ascites. Reviewed, dictated and finalized at location A. IMPRESSION: 1. Anasarca including moderate pleural effusions, small pericardial effusion, a nd at least moderate volume of ascites.
--- NOTE | ~2024-01-20 | XR_ITS ---
XR abdomen gastric tube insert DATE: 01/25/2024 03:00 INDICATION: Orogastric tube placement TECHNIQUE: AP view COMPARISON: None FINDINGS: Orogastric tube is noted, distal tip overlying the distal body of the stomach approximately . Borderline dilated gas containing small bowel segments overlying the mid abdomen. Bilateral pulmonary infiltrates and left lower lobe atelectasis are noted. IMPRESSION: Orogastric tube in body of stomach Reviewed, dictated and finalized at Location A. Reviewed, dictated and finalized at location A.
--- NOTE | 2024-01-20 08:37 | ECG_ITS ---
Measurements Intervals [place] Rate: 92 P: 17 CA: 124 QRS: -65 QRSD: 142 T: 28 QT: 401 QTc: 497 Interpretive Statements SINUS RHYTHM POSSIBLE LEFT ATRIAL ENLARGEMENT [-0.1mV P WAVE IN V1/V2] INDETERMINATE AXIS RIGHT BUNDLE BRANCH BLOCK [120+ ms QRS DURATION, UPRIGHT V1, 40+ ms S IN I/aVL/V4/V5/V6] SEPTAL MYOCARDIAL INFARCTION , OF INDETERMINATE AGE [40+ ms Q WAVE IN V1/V2] COMPARED TO ECG 10/31/2023 10:44:29 NO SIGNIFICANT CHANGES Electronically Signed On 01-20-2024 8:54:34 CDT by Mayra Alarcon M.D.
[2024-01-20] MEDS: SODIUM CHLORIDE 0.9% IV 1,000 ML 999 ML IV CONT (08:39)
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
[2024-01-20 09:14] LABS: Eosinophils Percent Auto 0.3 % (0-4.4); Hemoglobin 12.6 g/dL (14.0-18.0); Immature Granulocyte Absolute 0.08 K/mm3 (0.00-0.031); Immature Granulocyte Percent A 0.7 % (0-0.5); Lymphocytes Absolute Auto 1.09 K/mm3 (0.9-3.2); Mean Corpuscular HGB Conc 31.5 g/dl (32-36); Mean Corpuscular Hemoglobin 28.7 pg (26-34); Mean Corpuscular Volume 91.1 fl (80-100); Mean Platelet Volume 10.8 fl (7.4-10.4); Monocytes Absolute Auto 0.9 K/mm3 (0.1-0.6); Monocytes Percent Auto 7.5 % (2.6-8.5); Neutrophils Percent Auto 82.5 % (45.5-73.1); Platelet Count Result 388 k/mm3 (150-375); Red Blood Count 4.39 M/mm3 (4.6-6.20); Red Cell Distribution Width 17.7 % (11.5-14.5); White Blood Count 12.1 K/mm3 (4.5-10.0)
--- NOTE | 2024-01-20 09:18 | PCRCNOTE ---
RT attempt 2 sticks and received mixed blood sample for ABG, gave results to Dr. Price he would like a re-stick. RT will attempt again after CT scan.
[2024-01-20 09:25] LABS: Lactic Acid Reflex 3.2 mmol/L (0.7-2.0)
[2024-01-20 09:31] LABS: Alanine Aminotransferase 23 U/L (6-50); Albumin Level 3.9 g/dL (3.5-5.1); Alkaline Phosphatase 202 U/L (38-126); Anion Gap 13 mmol/L (4-12); Aspartate Amino Transferase 38 U/L (17-59); Bilirubin,Total 1.4 mg/dL (0.2-1.3); Blood Urea Nitrogen 50 mg/dL (9-20); Calcium 8.9 mg/dL (8.4-10.2); Carbon Dioxide 28 mmol/L (22-30); Chloride 92 mmol/L (98-107); Estimated CRCL calculation 36 ml/min; Estimated Glomerular Filt Rate 40; Glucose 176 mg/dL (65-110); Potassium 4.2 mmol/L (3.4-5.0); Sodium 133 mmol/L (137-145)
[2024-01-20 09:32] LABS: INR 1.2; Prothrombin Time 16.3 Seconds (11.1-14.7)
[2024-01-20 09:33] LABS: Partial Thromboplastin Time 37.1 Seconds (22.3-36.8)
[2024-01-20 09:38] LABS: NT Pro B Type Natriuretic Pept 8520 pg/mL (19.9-100); Troponin I 0.032 ng/mL (0.000-0.034)
[2024-01-20 09:45] LABS: Alveolar/Arterial O2 Gradient < 0.0 mmHg; Base Excess ABG 1.8 mEq/l (+/-2.0); Fractional Inspired Oxygen 26 %; Oxygen Content ABG 17.8 %vol (16.0-22.0); Oxygen Saturation ABG 98.7 % (95.0-100.0); Oxyhemoglobin 96.8 % THb (90.0-100.0); PCO2 ABG 50.2 mmHg (35.0-45.0); PO2 FiO2 Ratio Arterial Blood 5.46 %; Total Hemoglobin 12.9 g/dL (12.0-18.0); pH ABG 7.364 (7.350-7.450)
[2024-01-20 09:46] LABS: Device NASAL CANNULA; Liters per Minute 1.5 LPM; Site Drawn LEFT BRACHIAL
[2024-01-20 09:51] LABS: CRP 18.4 mg/dL (<1.0)
--- NOTE | 2024-01-20 09:51 | PC.NURSE ---
Pt remains hypotensive. Dr. Price informed. Pt denies any c/o of pain at this time
[2024-01-20] MEDS: SODIUM CHLORIDE 0.9% IV 2,000 ML/1,000 ML BAG 999 ML IV CONT (10:04)
[2024-01-20 11:01] LABS: INR 1.3; Prothrombin Time 16.9 Seconds (11.1-14.7)
[2024-01-20 12:03] LABS: Appearance Urine Cloudy (Clear); Bacteria Urine None Seen /hpf; Bilirubin Urine Negative (Negative); Blood Urine Negative (Negative); Color Urine Dark Yellow (Yellow); Glucose Urine UA 2+ mg/dL (Negative); Ketones Urine Trace mg/dL (Negative); Leukocyte Esterase Ur Negative LEU/UL (Negative); Need Manual Microscopic Reviewed; Nitrate Urine Negative (Negative); Protein Urine 1+ mg/dL (Negative); RBC Urine 0-2 /hpf (0-2); Specific Grav Ur 1.027 (1.001-1.035); Squamous Epithelial Cell Urine None Seen /hpf (Few); WBC Urine 0-5 /hpf (0-3)
[2024-01-20 12:06] LABS: Add Urine Microscopic? YES
[2024-01-20 12:09] LABS: Reflex Lactic Acid Yes or No Add Lactic
[2024-01-20] MEDS: levoFLOXacin 750 MG/D5W 150 ML 750 MG/150 ML BAG 100 MG IVPB (12:10)
--- NOTE | 2024-01-20 12:10 | PC.NURSE ---
Consent signed for Insertion of Central Venous Catheter. Pt education provied, pt voices understanding denies questions or concerns.
--- NOTE | 2024-01-20 12:50 | WPDCNINT ---
Assessment and Plan Assessment and plan (1) CHF (congestive heart failure): Code(s): I50.9 - Heart failure, unspecified Status: Acute Assessment and Plan: Most recent echo 07/12 showed following. Since patient had PCI since then will repeat a limited echo to evaluate ventricular function Summary ? 1. Complete two-dimensional, color flow and Doppler transthoracic echocardiogram is performed. ? 2. Four-chamber cardiac dilation. ? 3. Severe left ventricular systolic dysfunction with low ejection fraction and stigmata of low cardiac output. ? 4. Mild mitral regurgitation resulting from annular dilation. ? 5. No pericardial fluid. Will hold heart failure medication due to hypotension Start low-dose dobutamine (2) HUA (acute kidney injury): Code(s): N17.9 - Acute kidney failure, unspecified Status: Acute Assessment and Plan: Presented with 1.7 which could be secondary to hypotension or cardiac output Check CK level and urine electrolytes Patient received 3 L of fluids and will hold further IV fluids at this time Levophed and dobutamine drip Hold diuretics ARB and spironolactone Monitor urine output electrolytes and creatinine (3) Anasarca: Code(s): R60.1 - Generalized edema Status: Acute Assessment and Plan: Anasarca secondary to congestive heart failure Request IR for paracentesis Will plan for thoracentesis (4) Shock: Code(s): R57.9 - Shock, unspecified Status: Acute Assessment and Plan: Patient shock appears multifactorial with possible sepsis and cardiogenic Patient has received 3 L of fluid bolus he is overall volume overloaded hence will hold further IV fluids Continue Levophed Start dobutamine (5) Sepsis: Code(s): A41.9 - Sepsis, unspecified organism Assessment and Plan: Patient met criteria for sepsis with elevated lactic acid level elevated WBC and hypotension Although no clear-cut source of sepsis aspirin at this time. He denies any specific symptoms history of infection. He does have some atelectasis due to large pleural effusions. His UA is clear. He does have ascites but denies any abdominal pain and exam is nontender Cellulitis of lower extremities is a possibility or SBP Blood cultures have been done and pending Will request IR for diagnostic and therapeutic paracentesis Start empiric cefepime and vancomycin Check procalcitonin level (6) Pleural effusion: Code(s): J90 - Pleural effusion, not elsewhere classified Status: Acute Assessment and Plan: See above (7) Ascites: Code(s): R18.8 - Other ascites Status: Acute Assessment and Plan: See above Plan DVT prophylaxis -start Lovenox Nutrition -heart healthy Code Status -patient wishes to be Full Code. Although he has children he would like his mother to be the surrogate decision maker if he is unable to do so Total Critical Care Time -40 minutes Due to a high probability of clinically significant, life threatening deterioration, the patient required my highest level of preparedness to intervene emergently and I personally spent this critical care time directly and personally managing the patient. This critical care time included obtaining a history; examining the patient; pulse oximetry; ordering and review of studies; arranging urgent treatment with development of a management plan; evaluation of patient's response to treatment; frequent reassessment; and discussions with other providers. It was exclusive of separately billable procedures and treating other patients and teaching time. Please see Assessment and Plan section and the rest of the note for further information on patient assessment and treatment Hydraulic Engineer Consult Note Consult date: 01/20/24 HPI: Dre Coates is a 68 year old male with past medical history of skipping cardiomyopathy with ejection fraction 70%, coronary disease, type 2 diabetes, hyperlipidemia who was re
--- NOTE | 2024-01-20 12:55 | PC.NURSE ---
Both 1,000 Normal Saline scanned and infused. MAR only recorded 1,000. Total 2,000ml given per order
[2024-01-20] MEDS: NOREPINEPHRINE 8 MG/D5W 250 ML 8 MG/250 ML BAG 9.38 MG IV CONT (13:05)
[2024-01-20] MEDS: SODIUM CHLORIDE 0.9% IV 1,000 ML 125 ML IV CONT ×2 (13:10→20:54)
[2024-01-20] MEDS: CEFEPIME 2 GM/NS 50 ML 2 GM/50 ML BAG IVPB (13:11)
--- NOTE | 2024-01-20 13:16 | PC.NURSE ---
ICU Intensive assessing pt. Pt voiced he had cardiac procedure where the doctor went thru his neck. Pt states produce runner suggested implanting defibrillator. Pt refused. Bilateral feet ruth ann pulses palp. Pt state it is his normal coloring.
--- NOTE | 2024-01-20 13:23 | PC.NURSE ---
informed of decreased urinary output.
[2024-01-20] MEDS: VANCOMYCIN 1,750 MG/NS 500 ML 1,750 MG/500 ML BAG 250 MG IVPB (14:37)
[2024-01-20] MEDS: NOREPINEPHRINE 8 MG/D5W 250 ML 8 MG/250 ML BAG 16.88 MG IV CONT (14:37)
--- NOTE | 2024-01-20 14:38 | PC.NURSE ---
Levophed started at 9mcg/min at 1438 instead of 5mcg/min as ordered by Dr. Naik due to patient already having Levophed infusing from the ED at the rate of 9mcg/min. Pt now on ICU infusino protocol
[2024-01-20] MEDS: DOBUTamine 250 MG/D5W 250 ML 250 MG/250 ML BAG 10.56 MG IV CONT (14:50)
--- NOTE | 2024-01-20 15:00 | ADMGEN ---
This patient, Dre Coates, was admitted to Intensive Care Unit-6. Patient/family oriented to hospital policies and general routines including ID bracelet, bed and alarms, visiting hours, pain management, procedures, bathroom and other care routines, personal items, smoking policy, room service/diet, and visiting hours. Information on how to activate the Rapid Response Team has been discussed. Patient/Family are encouraged to report perceived risks to care and to ask questions if they do not understand what they are told or what they should do.
[2024-01-20 15:12] LABS: Creatine Kinase 82 U/L (55-170)
[2024-01-20 15:13] LABS: Glucose 187 mg/dL (65-110); Lactate Dehydrogenase 144 U/L (120-246); Lactic Acid 1.7 mmol/L (0.7-2.0)
[2024-01-20 15:15] LABS: Creatinine Urine 164.4 mg/dL
[2024-01-20 15:19] LABS: Sodium Urine Random 38 meq/L
[2024-01-20 15:27] LABS: Troponin I 0.034 ng/mL (0.000-0.034)
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
[2024-01-20 15:57] LABS: Hemoglobin A1C 8.8 % (<5.7)
[2024-01-20] MEDS: PERFLUTREN LIPID MICROSPHERES 1.5 ML VIAL DILUTED TO 10 ML TOTAL VOLUME IV PUSH (16:00)
[2024-01-20 16:09] LABS: MRSA (PCR) NOT DETECTED (NOT DETECTE)
[2024-01-20 16:11] LABS: Procalcitonin 0.4 ng/mL
[2024-01-20 16:44] LABS: Glucose Point of Care 158 mg/dl (65-105)
--- NOTE | 2024-01-20 16:57 | IVDEFINITY ---
Prior to administration of IV Definity the patient was educated on the risks and benefits of the imaging enhancing agent including potential adverse side effects. The patient verbalized understanding. Allergies were verified. No exclusion criteria were identified and at least one of the following inclusion criteria were met: 1) physician request, 2) patient technically difficult to image (per the [place] [employer]ocardi[employer] guidelines of two or more segments not discernable within the apical view), or 3) questionable left ventricular function. ?
--- NOTE | 2024-01-20 17:40 | PC.NURSE ---
Dr. Naik called for an update on patient. RN notified MD of patient's condition as well as amount of fluid removed from paracentesis and throacentsis. MD updated on vitals signs and rates of drips. New orders received. Increase Dobutamine to 5mcg/kg/min, if pt sustains heart rate greater than 120 then pause the drip. New parameters for titrating of Levophed; SBP >90 and MAP of 65. Orders placed
[2024-01-20 19:01] LABS: Pleural fluid source Pleural fluid
[2024-01-20 19:02] LABS: Appearance Pleural Fluid Bloody (Clear); Color Pleural Fluid Red (Colorless)
[2024-01-20 19:03] LABS: Lymphocytes Pleural Fluid 33 %; Macrophages Pleural Fluid 8 %; Neutrophils Pleural Fluid 59 % (0-25)
[2024-01-20 19:20] LABS: Appearance Peritoneal Fluid Cloudy (Clear); Color Peritoneal Fluid Yellow (Colorless); Source Peritoneal Fluid Peritoneal Fluid
[2024-01-20 19:21] LABS: Lymphocytes Peritoneal Fluid 38 %; Neutrophils Peritoneal Fluid 48 % (0-25)
[2024-01-20 19:22] LABS: Macrophages Peritoneal Fluid 14 %
[2024-01-20 20:53] LABS: Glucose Point of Care 251 mg/dl (65-105)
[2024-01-20] MEDS: CEFEPIME 1 GM/NS 50 ML 1 GM/50 ML BAG IVPB (20:54)
[2024-01-20] MEDS: INSULIN ASPART (*BKC) 100 UNITS/ML SUB-Q (20:56)
[2024-01-21] VITALS (74 sets, daily range): BP systolic 72–120; BP diastolic 50–80; PULSE 76–106; RESP 25–45; TEMP 36.5–37.1; O2SAT 93–100
[2024-01-21] MEDS: DOBUTamine 250 MG/D5W 250 ML 250 MG/250 ML BAG 21.12 MG IV CONT ×2 (03:55→15:19)
[2024-01-21] MEDS: NOREPINEPHRINE 8 MG/D5W 250 ML 8 MG/250 ML BAG 22.5 MG IV CONT (03:59)
[2024-01-21] MEDS: SODIUM CHLORIDE 0.9% IV 1,000 ML 125 ML IV CONT (04:00)
[2024-01-21 06:33] LABS: Basophils Percent Auto 0.1 % (0.2-1.2); Eosinophils Absolute Auto 0.1 K/mm3 (0-0.3); Eosinophils Percent Auto 0.3 % (0-4.4); Hematocrit 39.8 % (42.0-52.0); Hemoglobin 12.1 g/dL (14.0-18.0); Immature Granulocyte Absolute 0.11 K/mm3 (0.00-0.031); Immature Granulocyte Percent A 0.6 % (0-0.5); Lymphocytes Absolute Auto 0.93 K/mm3 (0.9-3.2); Lymphocytes Percent Auto 5.4 % (18.3-44.2); Mean Corpuscular HGB Conc 30.4 g/dl (32-36); Mean Corpuscular Hemoglobin 28.2 pg (26-34); Mean Corpuscular Volume 92.8 fl (80-100); Mean Platelet Volume 10.3 fl (7.4-10.4); Monocytes Absolute Auto 1.3 K/mm3 (0.1-0.6); Monocytes Percent Auto 7.7 % (2.6-8.5); Neutrophils Absolute Auto 14.7 K/mm3 (1.3-6.7); Neutrophils Percent Auto 85.9 % (45.5-73.1); Platelet Count Result 403 k/mm3 (150-375); Red Blood Count 4.29 M/mm3 (4.6-6.20); Red Cell Distribution Width 17.4 % (11.5-14.5); White Blood Count 17.2 K/mm3 (4.5-10.0)
[2024-01-21 06:47] LABS: Alanine Aminotransferase 20 U/L (6-50); Alkaline Phosphatase 179 U/L (38-126); Anion Gap 7 mmol/L (4-12); Aspartate Amino Transferase 31 U/L (17-59); Bilirubin,Total 1.2 mg/dL (0.2-1.3); Blood Urea Nitrogen 44 mg/dL (9-20); Calcium 8.1 mg/dL (8.4-10.2); Carbon Dioxide 25 mmol/L (22-30); Chloride 99 mmol/L (98-107); Estimated CRCL calculation 38 ml/min; Estimated Glomerular Filt Rate 43; Glucose 198 mg/dL (65-110); Magnesium 2.6 mg/dL (1.6-2.3); Potassium 3.9 mmol/L (3.4-5.0); Sodium 131 mmol/L (137-145)
[2024-01-21 07:28] LABS: Glucose Point of Care 207 mg/dl (65-105)
[2024-01-21] MEDS: INSULIN ASPART (*BKC) 100 UNITS/ML SUB-Q (08:24)
--- NOTE | 2024-01-21 08:24 | WPDINTPN ---
Progress Note: A&P Assessment and Plan (1) CHF (congestive heart failure): Code(s): I50.9 - Heart failure, unspecified Status: Acute Assessment and Plan: Most recent echo 07/12 showed following. Since patient had PCI since then will repeat a limited echo to evaluate ventricular function Summary ? 1. Complete two-dimensional, color flow and Doppler transthoracic echocardiogram is performed. ? 2. Four-chamber cardiac dilation. ? 3. Severe left ventricular systolic dysfunction with low ejection fraction and stigmata of low cardiac output. ? 4. Mild mitral regurgitation resulting from annular dilation. ? 5. No pericardial fluid. Will hold heart failure medication due to hypotension Continue dobutamine infusion Repeat echo has been done and report is pending Will give Lasix 80 mg IV x1 Consult cardiology (2) HUA (acute kidney injury): Code(s): N17.9 - Acute kidney failure, unspecified Status: Acute Assessment and Plan: Presented with 1.7 which could be secondary to hypotension or cardiac output Normal CK level and urine electrolytes suggested prerenal Patient received 3 L of fluids in the ER and and received IV fluids infusion overnight Patient likely third-spacing. Will hold further fluids now Levophed and dobutamine drip to be continued Hold diuretics ARB and spironolactone Monitor urine output electrolytes and creatinine (3) Anasarca: Code(s): R60.1 - Generalized edema Status: Acute Assessment and Plan: Anasarca secondary to congestive heart failure Status post paracentesis and 2.3 L fluid was removed Status post right-sided thoracentesis and 1 L fluid was removed Left thoracentesis pending Diuretic status is going to be difficult shock and acute kidney injury but will give Lasix 80 mg IV x1 (4) Shock: Code(s): R57.9 - Shock, unspecified Status: Acute Assessment and Plan: Patient shock appears multifactorial with possible sepsis and cardiogenic Hold further fluids Continue Levophed and dobutamine (5) Sepsis: Code(s): A41.9 - Sepsis, unspecified organism Assessment and Plan: Patient met criteria for sepsis with elevated lactic acid level elevated WBC and hypotension Although no clear-cut source of sepsisat this time. He denied any specific symptoms history of infection. He does have some atelectasis due to large pleural effusions. His UA is clear. He does have ascites but denies any abdominal pain and exam is nontender Cellulitis of lower extremities is a possibility or SBP His procalcitonin was low at 0.4 Blood cultures have been done and pending Will request IR for diagnostic and therapeutic paracentesis. Neutrophil count in ascites fluid was low Nasal MRSA screen was negative Continue empiric cefepime and vancomycin (6) Pleural effusion: Code(s): J90 - Pleural effusion, not elsewhere classified Status: Acute Assessment and Plan: See above (7) Ascites: Code(s): R18.8 - Other ascites Status: Acute Assessment and Plan: See above Plan DVT prophylaxis -Lovenox Nutrition -heart healthy Code Status -patient wishes to be Full Code. Although he has children he would like his mother to be the surrogate decision maker if he is unable to do so Total Critical Care Time -30 minutes Due to a high probability of clinically significant, life threatening deterioration, the patient required my highest level of preparedness to intervene emergently and I personally spent this critical care time directly and personally managing the patient. This critical care time included obtaining a history; examining the patient; pulse oximetry; ordering and review of studies; arranging urgent treatment with development of a management plan; evaluation of patient's response to treatment; frequent reassessment; and discussions with other providers. It was exclusive of separately billable procedures and treating other patien
[2024-01-21] MEDS: CEFEPIME 1 GM/NS 50 ML 1 GM/50 ML BAG IVPB ×2 (08:28→21:06)
[2024-01-21] MEDS: FUROSEMIDE INJ 100 MG/10 ML VIAL 80 MG IV PUSH (08:28)
[2024-01-21] MEDS: INSULIN GLARGINE (*BKC) 100 UNITS/ML 10 UNITS SUB-Q (08:36)
[2024-01-21 11:32] LABS: Glucose Point of Care 163 mg/dl (65-105)
--- NOTE | 2024-01-21 11:37 | PM.CNCAR ---
Assessment and Plan Assessment and plan (1) Acute on chronic HFrEF (heart failure with reduced ejection fraction): Code(s): I50.23 - Acute on chronic systolic (congestive) heart failure Status: Acute Assessment and Plan: Patient presents yet again with decompensated heart failure with reduced ejection fraction which is his 3rd admission in the past 3-4 months. Patient presents with diffuse anasarca, hypotension, evidence of hypoperfusion fatigue, acute kidney injury. Initially received aggressive IV fluid resuscitation in the emergency department without significant improvement. He is somewhat improved on dobutamine 5 microgram/kilogram per minute and norepinephrine along with Lasix IV 80 mg which was administered this morning status post right thoracentesis and paracentesis with plan left thoracentesis today. I explained the grave circumstances the poor prognosis frequent recurrent admission for decompensated heart failure presents. I strongly advise he must be managed and followed by the [facility] apart as has been previously recommended. Explained that our options are limited in this institution and this therapy he will require is beyond the capability of this hospital. Patient is high risk recurrent decompensations, sudden cardiac secondary to ventricular tachycardia and ventricular fibrillation. It is critically important he was compliant with dietary recommendations, follow-up, and his medications. It is concerning at his age that he is dependent on his parents to manage his medications and dietary intake. -he has been unable to tolerate uptitration of guideline directed medical therapy including continuation of spironolactone, Entresto and Toprol XL. -follow accurate input and output, daily weight. Less than 1500mg daily sodium intake. Continue to diurese as he tolerates hemodynamically Lasix 80 mg IV given this morning. May re-attempt another dose as BP permits. -continue IV dobutamine 5 microgram/kilogram per minute for ionotropic support. -continue norepinephrine but wean as tolerated -left thoracentesis today. -will review repeat 2D echocardiogram when available. Duration follows appropriate. -continue ICU management for now on telemetry. -discussed at length with patient if he continues to deteriorate and/or fail to respond to therapy as provided thus far may require transition to higher level of care at [facility] or advanced heart failure options not available at this hospital. Patient verbalized understanding of the critical nature of his heart failure now with multiple recent admissions which portends a very poor prognosis. Patient is critically ill. I spent 88 minutes in the care of this patient including examination bedside, discussion with patient and colleague, chart review, medical decision-making, documentation. (2) Shock: Code(s): R57.9 - Shock, unspecified Status: Acute Assessment and Plan: Most likely cardiogenic in setting of decompensated acute on chronic heart failure with reduced ejection fraction. Patient met sepsis criteria [place]. Cultures pending. He remains on empiric IV cefepime and vancomycin. (3) Ischemic cardiomyopathy: Code(s): I25.5 - Ischemic cardiomyopathy Status: Acute Assessment and Plan: As above, history of severe LV systolic dysfunction EF approximately 25-30%. Repeat echo pending. Patient unable to tolerate Entresto, spironolactone due to hypotension after last admission. He had been maintained on losartan 12.5 mg daily, Lasix 80 mg daily, Jardiance 10 mg daily (4) HUA (acute kidney injury): Code(s): N17.9 - Acute kidney failure, unspecified Status: Acute Assessment and Plan: Acute on chronic kidney injury secondary to hypoperfusion decompensated heart failure. Monitor closely. Follow BMP. Monitor electrolytes very closely as he has has had issues with hyperkalemia in the past. (5) Coronary artery dise
[2024-01-21] MEDS: ASPIRIN 81 MG ENTERIC TABLET PO (12:35)
[2024-01-21] MEDS: CLOPIDOGREL BISULFATE 75 MG TABLET PO (12:35)
[2024-01-21] MEDS: ATORVASTATIN 40 MG TABLET PO (12:36)
[2024-01-21] MEDS: CENTRAL LINE FLUSH 10 ML IV PUSH ×2 (13:19→21:07)
[2024-01-21] MEDS: NOREPINEPHRINE 8 MG/D5W 250 ML 8 MG/250 ML BAG 24.38 MG IV CONT (15:18)
[2024-01-21 16:27] LABS: Glucose Point of Care 187 mg/dl (65-105)
[2024-01-21 20:58] LABS: Glucose Point of Care 176 mg/dl (65-105)
[2024-01-22] VITALS (37 sets, daily range): BP systolic 81–121; BP diastolic 46–97; PULSE 80–100; RESP 23–38; TEMP 35.5–36.4; O2SAT 88–100
[2024-01-22] MEDS: DOBUTamine 250 MG/D5W 250 ML 250 MG/250 ML BAG 21.12 MG IV CONT ×2 (03:40→16:03)
[2024-01-22] MEDS: VANCOMYCIN 1,000 MG/NS 250 ML 1,000 MG/250 ML BAG 250 MG IVPB (04:00)
[2024-01-22] MEDS: CENTRAL LINE FLUSH 10 ML IV PUSH ×3 (04:29→20:43)
[2024-01-22 06:29] LABS: Basophils Percent Auto 0.1 % (0.2-1.2); Eosinophils Absolute Auto 0.1 K/mm3 (0-0.3); Hematocrit 39.2 % (42.0-52.0); Hemoglobin 12.3 g/dL (14.0-18.0); Immature Granulocyte Percent A 0.7 % (0-0.5); Lymphocytes Absolute Auto 1.11 K/mm3 (0.9-3.2); Mean Corpuscular HGB Conc 31.4 g/dl (32-36); Mean Corpuscular Hemoglobin 28.3 pg (26-34); Mean Corpuscular Volume 90.3 fl (80-100); Mean Platelet Volume 10.1 fl (7.4-10.4); Monocytes Percent Auto 7.3 % (2.6-8.5); Neutrophils Absolute Auto 11.4 K/mm3 (1.3-6.7); Neutrophils Percent Auto 82.9 % (45.5-73.1); Platelet Count Result 337 k/mm3 (150-375); Red Blood Count 4.34 M/mm3 (4.6-6.20); Red Cell Distribution Width 17.2 % (11.5-14.5); White Blood Count 13.8 K/mm3 (4.5-10.0)
[2024-01-22 06:41] LABS: Alanine Aminotransferase 18 U/L (6-50); Albumin Level 2.8 g/dL (3.5-5.1); Alkaline Phosphatase 155 U/L (38-126); Anion Gap 7 mmol/L (4-12); Aspartate Amino Transferase 26 U/L (17-59); Bilirubin,Total 1.3 mg/dL (0.2-1.3); Blood Urea Nitrogen 38 mg/dL (9-20); Calcium 8.1 mg/dL (8.4-10.2); Carbon Dioxide 26 mmol/L (22-30); Chloride 98 mmol/L (98-107); Estimated CRCL calculation 46 ml/min; Estimated Glomerular Filt Rate 55; Glucose 161 mg/dL (65-110); Magnesium 2.7 mg/dL (1.6-2.3); Potassium 3.6 mmol/L (3.4-5.0); Sodium 131 mmol/L (137-145)
[2024-01-22 07:52] LABS: Glucose Point of Care 158 mg/dl (65-105)
--- NOTE | 2024-01-22 08:41 | WPDINTPN ---
Progress Note: A&P Assessment and Plan (1) CHF (congestive heart failure): Code(s): I50.9 - Heart failure, unspecified Status: Acute Assessment and Plan: Echo Summary ? 1. Limited study with limited views.? Definity contrast administered. ? 2. Left ventricular chamber dimension is mildly enlarged. ? 3. Left ventricular systolic function is severely reduced, estimated at 25-30% with dyskinetic apex.? 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 ? 4. There is no increased left ventricular wall thickness. ? 5. Left ventricular septal wall motion is abnormal with septal motion related to bundle branch block. ? 6. There is moderate tricuspid valve regurgitation. ? 7. Severe pulmonary hypertension, estimated pulmonary arterial systolic pressure is 67 mmHg. ? 8. Large left pleural effusion. Holding heart failure medication due to hypotension Continue dobutamine infusion and Levophed Continue Lasix Cardiology following Management of LV thrombus as below (2) LV (left ventricular) mural thrombus: Code(s): I51.3 - Intracardiac thrombosis, not elsewhere classified Status: Acute Assessment and Plan: Echocardiogram shows probable laminated thrombus at the LV apex. Will discuss with Cardiology and see if patient needs LALY. I spoke to patient and updated him with the report results and discussed pros and cons of starting anticoagulation. Patient denies any hematochezia melena or hematemesis. I explained him the risks of being on anticoagulation with increase risk of bleeding both spontaneous and traumatic which could be life-threatening. Patient understood and verbalized understanding of benefits and risks and agreed to proceed with anticoagulation at this time. I will start patient on therapeutic dose of Lovenox. (3) HUA (acute kidney injury): Code(s): N17.9 - Acute kidney failure, unspecified Status: Acute Assessment and Plan: Presented with 1.7 which could be secondary to hypotension or cardiac output Normal CK level and urine electrolytes suggested prerenal Patient received 3 L of fluids in the ER and and received IV fluids infusion overnight Patient likely third-spacing and now off of IV fluids Creatinine improved to 1.3 and urine output improving Levophed and dobutamine drip to be continued Hold diuretics ARB and spironolactone Monitor urine output electrolytes and creatinine (4) Anasarca: Code(s): R60.1 - Generalized edema Status: Acute Assessment and Plan: Anasarca secondary to congestive heart failure 4/2 Status post paracentesis and 2.3 L fluid was removed 4/2 Status post right-sided thoracentesis and 1 L fluid was removed 4/3 status post left-sided thoracentesis and 1 L fluid was removed Patient started on Lasix but aggressive diuresis is going to be difficult due to shock and acute kidney injury (5) Shock: Code(s): R57.9 - Shock, unspecified Status: Acute Assessment and Plan: Patient shock appears multifactorial with possible sepsis and cardiogenic Hold further fluids Continue Levophed and dobutamine (6) Sepsis: Code(s): A41.9 - Sepsis, unspecified organism Assessment and Plan: Patient met criteria for sepsis with elevated lactic acid level elevated WBC and hypotension Although no clear-cut source of sepsisat this time. He denied any specific symptoms history of infection. He does have some atelectasis due to large pleural effusions. His UA is clear. He does have ascites but denies any abdominal pain and exam is nontender Cellulitis of lower extremities vs atelectasis His procalcitonin was low at 0.4 Blood cultures have been done and negative till now He had diagnostic and therapeutic paracentesis. Neutrophil count in ascites fluid was low He had a diagnostic and therapeutic thoracentesis on both sides Nasal MRSA screen was negative Continue empiric cefepime but will discontinue vancomycin after today's dose (7) Pleural
[2024-01-22] MEDS: CEFEPIME 1 GM/NS 50 ML 1 GM/50 ML BAG IVPB ×2 (09:12→20:42)
[2024-01-22] MEDS: ASPIRIN 81 MG ENTERIC TABLET PO (09:13)
[2024-01-22] MEDS: ENOXAPARIN 80 MG/0.8 ML SYRINGE 70 MG SUB-Q ×2 (09:13→20:42)
[2024-01-22] MEDS: ATORVASTATIN 40 MG TABLET PO (09:13)
[2024-01-22] MEDS: MIDODRINE HCL 10 MG TABLET PO ×3 (09:13→16:11)
[2024-01-22] MEDS: FUROSEMIDE INJ 100 MG/10 ML VIAL 80 MG IV PUSH ×2 (09:13→16:11)
[2024-01-22] MEDS: CLOPIDOGREL BISULFATE 75 MG TABLET PO (09:13)
[2024-01-22] MEDS: POTASSIUM CHLORIDE 20 MEQ PACKET (FOR LIQUID) 40 MEQ PO (09:13)
[2024-01-22] MEDS: INSULIN GLARGINE (*BKC) 100 UNITS/ML 10 UNITS SUB-Q (09:14)
[2024-01-22] MEDS: INSULIN ASPART (*BKC) 100 UNITS/ML SUB-Q (11:48)
[2024-01-22 11:55] LABS: Glucose Point of Care 222 mg/dl (65-105)
--- NOTE | 2024-01-22 12:00 | PM.PNCARD ---
Progress Note: A&P Assessment and Plan (1) Acute on chronic HFrEF (heart failure with reduced ejection fraction): Code(s): I50.23 - Acute on chronic systolic (congestive) heart failure Status: Acute Assessment and Plan: Patient presents yet again with decompensated heart failure with reduced ejection fraction which is his 3rd admission in the past 3-4 months. Patient presents with diffuse anasarca, hypotension, evidence of hypoperfusion fatigue, acute kidney injury. Initially received aggressive IV fluid resuscitation in the emergency department without significant improvement. Patient is high risk recurrent decompensations, sudden cardiac secondary to ventricular tachycardia and ventricular fibrillation. It is critically important he was compliant with dietary recommendations, follow-up, and his medications. It is concerning at his age that he is dependent on his parents to manage his medications and dietary intake. -he has been unable to tolerate uptitration of guideline directed medical therapy including continuation of spironolactone, Entresto and Toprol XL. -status post bilateral thoracentesis and initial paracentesis. -follow accurate input and output, daily weight. Less than 1500mg daily sodium intake. -continue IV dobutamine 5 microgram/kilogram per minute for ionotropic support. -continue norepinephrine but wean as tolerated. This is improving slowly. -Lasix 80 mg IV q.12 hours. -repeat paracentesis as patient appears to be reaccumulating with past 24 hours. Discussed concerns in this regard at length. Patient verbalized understanding. Patient remains critically ill. (2) Shock: Code(s): R57.9 - Shock, unspecified Status: Acute Assessment and Plan: Persistent, Most likely cardiogenic in setting of decompensated acute on chronic heart failure with reduced ejection fraction. Patient met sepsis criteria at admission. He remains on empiric IV cefepime and vancomycin. Management of IV antibiotics per Critical Care. (3) Ischemic cardiomyopathy: Code(s): I25.5 - Ischemic cardiomyopathy Status: Acute Assessment and Plan: As above, history of severe LV systolic dysfunction EF approximately 25-30%. Repeat echo pending. Patient unable to tolerate Entresto, spironolactone due to hypotension after last admission. He had been maintained on losartan 12.5 mg daily, Lasix 80 mg daily, Jardiance 10 mg daily (4) Coronary artery disease: Qualifiers: Coronary Disease-Associated Artery/Lesion type: [place] artery [place] vs. transplanted heart: [place] heart Associated angina: without angina Qualified Code(s): I25.10 - Atherosclerotic heart disease of [place] coronary artery without angina pectoris Code(s): I25.10 - Atherosclerotic heart disease of [place] coronary artery without angina pectoris Status: Acute Assessment and Plan: Most recent intervention October 2023 with 2 stents to LAD Impella assisted CT of circumflex and RPL branch with possible stage intervention to RCA occlusion. Continue aspirin 81 mg daily and clopidogrel 75 mg daily. Continue atorvastatin 40 mg daily. (5) HUA (acute kidney injury): Code(s): N17.9 - Acute kidney failure, unspecified Status: Acute Assessment and Plan: Acute on chronic kidney injury secondary to hypoperfusion decompensated heart failure. Monitor closely. Follow BMP. Monitor electrolytes very closely as he has has had issues with hyperkalemia in the past. Renal function improving thus far creatinine now 1.3 today. Continue dobutamine 5 microgram/kilogram per minute for the time being. (6) Sepsis: Qualifiers: Sepsis type: sepsis due to unspecified organism Sepsis acute organ dysfunction status: with acute organ dysfunction Severe sepsis acute organ dysfunction type: unspecified Code(s): A41.9 - Sepsis, unspecified organism Status: Acute Assessment and Plan:
--- NOTE | 2024-01-22 14:00 | PC.NURSE ---
Patient's norepinephrine drip is at 5 mcg/min. No rate change is necessary at this time. See vital signs. Charting system limitations do not allow for me to input this information into spreadsheet. IT notified.
[2024-01-22] MEDS: NOREPINEPHRINE 8 MG/D5W 250 ML 8 MG/250 ML BAG 9.38 MG IV CONT (15:36)
[2024-01-22 16:15] LABS: Glucose Point of Care 94 mg/dl (65-105)
[2024-01-22 20:33] LABS: Glucose Point of Care 44 mg/dl (65-105)
[2024-01-22] MEDS: DEXTROSE 50% 25 GM/50 ML SYRINGE IV PUSH (20:42)
[2024-01-22 21:09] LABS: Glucose Point of Care 86 mg/dl (65-105)
[2024-01-22 22:07] LABS: Glucose Point of Care 117 mg/dl (65-105)
--- NOTE | 2024-01-22 23:00 | PC.NURSE ---
Pt temp low asked pt to keep blankets on but pt refused. Pt alert and orientated x 3. Room temp increased to max door shut to increase ambient temp.
[2024-01-23] VITALS (54 sets, daily range): BP systolic 64–112; BP diastolic 40–84; PULSE 82–143; RESP 24–44; TEMP 35.7–36.6; O2SAT 93–100
[2024-01-23] MEDS: DOBUTamine 250 MG/D5W 250 ML 250 MG/250 ML BAG 21.12 MG IV CONT (05:14)
[2024-01-23] MEDS: CENTRAL LINE FLUSH 10 ML IV PUSH ×3 (05:16→22:00)
[2024-01-23 05:33] LABS: Basophils Percent Auto 0.2 % (0.2-1.2); Eosinophils Absolute Auto 0.2 K/mm3 (0-0.3); Eosinophils Percent Auto 1.9 % (0-4.4); Hematocrit 40.2 % (42.0-52.0); Hemoglobin 12.6 g/dL (14.0-18.0); Immature Granulocyte Absolute 0.07 K/mm3 (0.00-0.031); Immature Granulocyte Percent A 0.6 % (0-0.5); Lymphocytes Absolute Auto 1.53 K/mm3 (0.9-3.2); Lymphocytes Percent Auto 12.2 % (18.3-44.2); Mean Corpuscular HGB Conc 31.3 g/dl (32-36); Mean Corpuscular Hemoglobin 28.4 pg (26-34); Mean Corpuscular Volume 90.5 fl (80-100); Mean Platelet Volume 10.1 fl (7.4-10.4); Monocytes Absolute Auto 1.1 K/mm3 (0.1-0.6); Monocytes Percent Auto 8.7 % (2.6-8.5); Neutrophils Absolute Auto 9.6 K/mm3 (1.3-6.7); Neutrophils Percent Auto 76.4 % (45.5-73.1); Platelet Count Result 373 k/mm3 (150-375); Red Blood Count 4.44 M/mm3 (4.6-6.20); Red Cell Distribution Width 17.2 % (11.5-14.5); White Blood Count 12.5 K/mm3 (4.5-10.0)
[2024-01-23 05:49] LABS: Alanine Aminotransferase 19 U/L (6-50); Albumin Level 3.1 g/dL (3.5-5.1); Alkaline Phosphatase 177 U/L (38-126); Anion Gap 6 mmol/L (4-12); Aspartate Amino Transferase 35 U/L (17-59); Bilirubin,Total 1.2 mg/dL (0.2-1.3); Blood Urea Nitrogen 36 mg/dL (9-20); Calcium 8.5 mg/dL (8.4-10.2); Carbon Dioxide 26 mmol/L (22-30); Chloride 97 mmol/L (98-107); Estimated CRCL calculation 46 ml/min; Estimated Glomerular Filt Rate 55; Glucose 92 mg/dL (65-110); Magnesium 2.7 mg/dL (1.6-2.3); Sodium 129 mmol/L (137-145)
[2024-01-23] MEDS: NOREPINEPHRINE 8 MG/D5W 250 ML 8 MG/250 ML BAG 26.25 MG IV CONT (07:58)
[2024-01-23] MEDS: CLOPIDOGREL BISULFATE 75 MG TABLET PO (07:59)
[2024-01-23] MEDS: MIDODRINE HCL 10 MG TABLET PO ×3 (07:59→17:07)
[2024-01-23] MEDS: FUROSEMIDE INJ 100 MG/10 ML VIAL 80 MG IV PUSH (08:00)
[2024-01-23] MEDS: ASPIRIN 81 MG ENTERIC TABLET PO (08:00)
[2024-01-23] MEDS: ENOXAPARIN 80 MG/0.8 ML SYRINGE 70 MG SUB-Q (08:00)
[2024-01-23] MEDS: ATORVASTATIN 40 MG TABLET PO (08:00)
[2024-01-23] MEDS: CEFEPIME 1 GM/NS 50 ML 1 GM/50 ML BAG IVPB ×2 (08:01→20:40)
[2024-01-23 08:10] LABS: Glucose Point of Care 68 mg/dl (65-105)
[2024-01-23 08:27] LABS: Glucose Point of Care 77 mg/dl (65-105)
--- NOTE | 2024-01-23 08:43 | PM.PNCARD ---
Progress Note: A&P Assessment and Plan (1) Acute on chronic HFrEF (heart failure with reduced ejection fraction): Code(s): I50.23 - Acute on chronic systolic (congestive) heart failure Status: Acute Plan 68-year-old man with: End-stage ischemic cardiomyopathy. During my last office appointment he reiterated his comment that he would not be pursuing care at [place] any longer with the Advanced Heart failure group. He is now indicating he has reconsider that decision a given the fact that he has recurrent admissions with heart failure requires ionotropic support and if he is going to have any chance of surviving much longer he will require care that we do not provide here at [facility]. It is possible that he will need a ventricular assist device but in any event spoke to the patient again about the coming reestablish with the advanced heart failure team at [place] he is indicating that he is agreeable to that at this time. If he can be stabilized and weaned off of inotropic support here that could occur as an outpatient obviously the other alternative is to transfer him as an inpatient since for the time being he is dependent on pressor support Mt Baires MD [facility] Subjective Date/time seen: Date of service: 01/23/24 08:43 Interval history: Follow-up for acute on chronic heart failure with reduced ejection fraction, cardiogenic shock The patient underwent left thoracentesis yesterday with improvement in his breathing. Overnight he felt more short of breath and requested oxygen to be placed although he was not hypoxic. Blood pressures been stable on dobutamine and norepinephrine. No epinephrine has been slowly down titrated. He feels more short of breath lying flat and sitting up. He feels his abdomen is more distended and uncomfortable. Slightly negative fluid balance past 24 hours. Lasix 80 mg IV administered this morning. 01/23/2024: The patient reports some increase in abdominal distention over the last 48 hours reports to be breathing relatively comfortably with nasal cannula oxygen, still on dobutamine and norepinephrine. Exam Narrative: General: male appearing somewhat older than his stated age, somewhat pale, appearing fatigued, lying upright in bed, tachypneic, abdominal breathing, answering questions appropriately, Well developed, alert and oriented x3. No obvious distress, cooperative. Head: atraumatic, normocephalic Eyes: EOM intact, sclerae anicteric, conjunctivae unremarkable Ears/Nose: external inspection of ears and nose were grossly normal, O2 via nasal cannula Mouth/Throat: oral mucosa pink and moist Neck: supple, normal range of motion, no jugular venous distention or carotid bruits, thyroid nonpalpable, trachea midline. Cardiac: Regular rate and rhythm, normal S1-S2, no systolic murmur +S3 Lungs: Dullness to percussion left base absent breath sounds up to mid lung field, improved aeration on the right with basilar crackles no wheezes or rhonchi. Abdomen: Distended, Soft, nondistended, positive bowel sounds throughout. No appreciable hepatosplenomegaly, rebound guarding or rigidity noted. Abdominal aorta nonpalpable, no appreciable bruits. Extremities: 1 to 2+ bilateral pitting equal lower extremity edema, no clubbing, or cyanosis. Extremities warm and well perfused. Skin wrinkled Skin: Warm and dry without ecchymoses, rashes, and/or petechiae. Musculoskeletal: Muscle strength and tone intact throughout without obvious deformities. Vascular: Carotid upstrokes 2+ bilaterally, radial pulses 2+ bilaterally, dorsalis pedis pulses 2+ bilaterally Neurologic: Cranial nerves 2-12 grossly intact, examination grossly nonfocal Psychiatric: Mood calm and appropriate. Objective Data Vital Signs Vital Signs: Vital Signs - 24 hr 01/22/24 09:30 01/22/24 09:30 01/22/24 10:00 Temperature Pulse Rate 99 99 99 Respiratory Rat
--- NOTE | 2024-01-23 09:02 | WPDINTPN ---
Progress Note: A&P Assessment and Plan (1) CHF (congestive heart failure): Code(s): I50.9 - Heart failure, unspecified Status: Acute Assessment and Plan: Echo Summary ? 1. Limited study with limited views.? Definity contrast administered. ? 2. Left ventricular chamber dimension is mildly enlarged. ? 3. Left ventricular systolic function is severely reduced, estimated at 25-30% with dyskinetic apex.? 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 ? 4. There is no increased left ventricular wall thickness. ? 5. Left ventricular septal wall motion is abnormal with septal motion related to bundle branch block. ? 6. There is moderate tricuspid valve regurgitation. ? 7. Severe pulmonary hypertension, estimated pulmonary arterial systolic pressure is 67 mmHg. ? 8. Large left pleural effusion. Holding heart failure medication due to hypotension Continue dobutamine infusion and Levophed. It appears to be dependent and unable to wean any of those down at this time. Continue Lasix and add metolazone Cardiology following and discussed with Dr. Vicente who recommends transfer to [facility] for advanced heart failure management where patient was admit 2 months ago. Patient in the past has refused LifeVest and then refused AICD but now when discussed prognosis he would like to resume his treatment at [facility] heart failure and is agreeable to transfer if bed is available Management of LV thrombus as below (2) LV (left ventricular) mural thrombus: Code(s): I51.3 - Intracardiac thrombosis, not elsewhere classified Status: Acute Assessment and Plan: Echocardiogram shows probable laminated thrombus at the LV apex. Will discuss with Cardiology and see if patient needs LALY. I spoke to patient and updated him with the report results and discussed pros and cons of starting anticoagulation. Patient denies any hematochezia melena or hematemesis. I explained him the risks of being on anticoagulation with increase risk of bleeding both spontaneous and traumatic which could be life-threatening. Patient understood and verbalized understanding of benefits and risks and agreed to proceed with anticoagulation at this time. Patient has been started on therapeutic dose of Lovenox. (3) HUA (acute kidney injury): Code(s): N17.9 - Acute kidney failure, unspecified Status: Acute Assessment and Plan: Presented with 1.7 which could be secondary to hypotension or cardiac output Normal CK level and urine electrolytes suggested prerenal Patient received 3 L of fluids in the ER and and received IV fluids infusion overnight Patient likely third-spacing and now off of IV fluids Creatinine improved to 1.3 and urine output improving Levophed and dobutamine drip to be continued Continue Lasix and resume metolazone Monitor urine output electrolytes and creatinine (4) Anasarca: Code(s): R60.1 - Generalized edema Status: Acute Assessment and Plan: Anasarca secondary to congestive heart failure 4/2 Status post paracentesis and 2.3 L fluid was removed 4/2 Status post right-sided thoracentesis and 1 L fluid was removed 4/3 status post left-sided thoracentesis and 1 L fluid was removed Patient started on Lasix but aggressive diuresis is going to be difficult due to shock and acute kidney injury 4/5 will request IR for repeat paracentesis (5) Shock: Code(s): R57.9 - Shock, unspecified Status: Acute Assessment and Plan: Patient shock appears multifactorial with possible sepsis and cardiogenic Hold further fluids Continue Levophed and dobutamine and will try to titrate (6) Sepsis: Code(s): A41.9 - Sepsis, unspecified organism Assessment and Plan: Patient met criteria for sepsis with elevated lactic acid level elevated WBC and hypotension Although no clear-cut source of sepsisat this time. He denied any specific symptoms history of infection. He does have some atelectasis due to la
[2024-01-23] MEDS: metOLazone 2.5 MG TABLET PO (09:21)
[2024-01-23 11:39] LABS: Glucose Point of Care 97 mg/dl (65-105)
--- NOTE | 2024-01-23 14:22 | ECG_ITS ---
Measurements Intervals [place] Rate: 152 P: NC: 0 QRS: 239 QRSD: 115 T: 81 QT: 324 QTc: 516 Interpretive Statements THERE IS SIGNIFICANT BASELINE ARTIFACT IN MULTIPLE LEADS WHICH PRECLUDES INTERPRETATION, DIFFICULT TO ASCERTAIN THE UNDERLYING RHYTHM COMPARED TO ECG 01/20/2024 08:40:40 SIGNIFICANT BASELINE ARTIFACT NOW PRESENT Electronically Signed On 01-24-2024 13:21:09 CDT by Mayra Alarcon M.D.
[2024-01-23] MEDS: METOPROLOL TARTRATE INJ 5 MG/5 ML VIAL IV PUSH (14:39)
[2024-01-23 15:12] LABS: Anion Gap 3 mmol/L (4-12); Blood Urea Nitrogen 35 mg/dL (9-20); Calcium 8.3 mg/dL (8.4-10.2); Carbon Dioxide 31 mmol/L (22-30); Chloride 93 mmol/L (98-107); Estimated CRCL calculation 50 ml/min; Estimated Glomerular Filt Rate 60; Glucose 195 mg/dL (65-110); Magnesium 2.4 mg/dL (1.6-2.3); Sodium 127 mmol/L (137-145)
--- NOTE | 2024-01-23 17:33 | PM.IMPN ---
Progress Note: A&P Assessment and Plan (1) Shock: Code(s): R57.9 - Shock, unspecified Status: Acute (2) Acute kidney injury: Code(s): N17.9 - Acute kidney failure, unspecified Status: Acute (3) Heart failure with reduced ejection fraction: Code(s): I50.20 - Unspecified systolic (congestive) heart failure Status: Acute (4) Sepsis: Qualifiers: Sepsis type: sepsis due to unspecified organism Sepsis acute organ dysfunction status: with acute organ dysfunction Severe sepsis acute organ dysfunction type: unspecified Code(s): A41.9 - Sepsis, unspecified organism Status: Acute (5) Ascites: Code(s): R18.8 - Other ascites Status: Acute (6) Anasarca: Code(s): R60.1 - Generalized edema Status: Acute (7) Pleural effusion: Code(s): J90 - Pleural effusion, not elsewhere classified Status: Acute (8) Type 2 diabetes mellitus: Code(s): E11.9 - Type 2 diabetes mellitus without complications Status: Acute Plan The patient presented to the emergency department for evaluation of weakness, shortness of breath, and swelling. He was hypotensive on arrival remains though despite aggressive IV fluid rehydration. May be due to cardiogenic shock, underlying sepsis, or combination of both. He does meet sepsis criteria with tachycardia, leukocytosis, acute kidney injury, and elevated lactic acid level. CRP is elevated but procalcitonin is only 0.4. Possible source of infection could be cellulitis, SBP, or pneumonia but none of these are too convincing. Urinalysis is pretty unremarkable. He was started on empiric cefepime and vancomycin. He was pancultured. Presented with HUA with creatinine of 1.7 CK was normal. Also had anasarca status post paracentesis with 2.3 L removed 01/20/24 and 1 L status post right sided thoracentesis and left-sided thoracentesis. On diuresis however aggressive diuresis difficult to shock and HUA. Managed under ICU care. Echocardiogram showed probable laminated thrombus at the LV apex. Cardiology consulted. EF 25-30% with dyskinetic FX. Started on therapeutic Lovenox. Type 2 diabetes Coronary artery disease on aspirin Plavix and statin Plan for transfer to [facility] for heart failure management. She has been accepted at [facility] Subjective Date/time seen: 01/23/24 17:33 Interval history: Feels okay. Remains on vasopressor. Discussed with nursing staff. Reviewed castings drafter and cardiology note. Review of Systems Review of Systems: All systems reviewed & are unremarkable except as noted in HPI and below (HPI) Exam Narrative: General: Pt is alert awake and in NAD Lungs/Chest: Trachea central breath sounds are decreased and absent at left bases, no wheezing Cardiac: RRR. Normal S1 S2. No murmurs Circulation: Pedal pulses are weak but dopplerable and symmetrical. Abdomen: Decreased bowel sounds.. Distended abdomen with fluid thrill Extremities: No clubbing, cyanosis bilateral pitting edema present but improved as compared to before, feet are cold : Lira in place Neurologic: Follows commands. Moves all 4 extremities PERRL AO x3 Skin: Both feet are erythematous but redness has decreased as compared to presentation Objective Data Vital Signs Vital Signs: Vital Signs - 24 hr 01/22/24 18:00 01/22/24 18:00 01/22/24 18:15 Temperature 96.9 F L Pulse Rate 88 88 90 Respiratory Rate 36 H Blood Pressure 107/70 107/70 Pulse Oximetry 97 Oxygen Delivery Oxygen Flow Rate 01/22/24 18:15 01/22/24 19:44 01/22/24 19:47 Temperature Pulse Rate 93 80 80 Respiratory Rate 36 H Blood Pressure Pulse Oximetry 97 Oxygen Delivery Room Air Oxygen Flow Rate 01/22/24 20:00 01/22/24 20:21 01/22/24 20:00 Temperature 96.7 F L Pulse Rate 88 90 90 Respiratory Rate 26 H Blood Pressure 90/58 L 93/58 L 93/58 L Pulse Oximetry 100 Oxygen Delivery Oxygen Flow Rate 0
[2024-01-23 20:46] LABS: Glucose Point of Care 188 mg/dl (65-105)
[2024-01-23] MEDS: NOREPINEPHRINE 8 MG/D5W 250 ML 8 MG/250 ML BAG 22.5 MG IV CONT (21:51)
[2024-01-24] VITALS (62 sets, daily range): BP systolic 74–119; BP diastolic 34–87; PULSE 96–132; RESP 19–39; TEMP 35.8–36.7; O2SAT 90–100
--- NOTE | 2024-01-24 00:11 | PC.NURSE ---
Breana called for an update on patient's status. Currently at capacity so there is no bed for the patient for accepted transfer.
[2024-01-24 03:52] LABS: Albumin Peritoneal Fluid 1.8 g/dL
[2024-01-24 05:06] LABS: Basophils Percent Auto 0.1 % (0.2-1.2); Eosinophils Absolute Auto 0.1 K/mm3 (0-0.3); Hematocrit 41.8 % (42.0-52.0); Hemoglobin 13.4 g/dL (14.0-18.0); Immature Granulocyte Absolute 0.09 K/mm3 (0.00-0.031); Immature Granulocyte Percent A 0.6 % (0-0.5); Lymphocytes Absolute Auto 1.31 K/mm3 (0.9-3.2); Lymphocytes Percent Auto 9.4 % (18.3-44.2); Mean Corpuscular HGB Conc 32.1 g/dl (32-36); Mean Corpuscular Hemoglobin 28.4 pg (26-34); Mean Corpuscular Volume 88.6 fl (80-100); Monocytes Absolute Auto 1.2 K/mm3 (0.1-0.6); Monocytes Percent Auto 8.5 % (2.6-8.5); Neutrophils Absolute Auto 11.2 K/mm3 (1.3-6.7); Neutrophils Percent Auto 80.4 % (45.5-73.1); Platelet Count Result 393 k/mm3 (150-375); Red Blood Count 4.72 M/mm3 (4.6-6.20); Red Cell Distribution Width 16.9 % (11.5-14.5)
[2024-01-24 05:15] LABS: Alanine Aminotransferase 20 U/L (6-50); Albumin Level 3.1 g/dL (3.5-5.1); Alkaline Phosphatase 216 U/L (38-126); Anion Gap 6 mmol/L (4-12); Aspartate Amino Transferase 31 U/L (17-59); Bilirubin,Total 1.6 mg/dL (0.2-1.3); Blood Urea Nitrogen 33 mg/dL (9-20); Calcium 8.5 mg/dL (8.4-10.2); Carbon Dioxide 27 mmol/L (22-30); Chloride 92 mmol/L (98-107); Estimated CRCL calculation 50 ml/min; Estimated Glomerular Filt Rate 60; Glucose 216 mg/dL (65-110); Magnesium 2.5 mg/dL (1.6-2.3); Potassium 4.2 mmol/L (3.4-5.0); Sodium 125 mmol/L (137-145)
[2024-01-24] MEDS: CENTRAL LINE FLUSH 10 ML IV PUSH ×3 (06:00→21:24)
[2024-01-24 08:06] LABS: Glucose Point of Care 197 mg/dl (65-105)
[2024-01-24] MEDS: CLOPIDOGREL BISULFATE 75 MG TABLET PO (08:10)
[2024-01-24] MEDS: CEFEPIME 1 GM/NS 50 ML 1 GM/50 ML BAG IVPB ×2 (08:10→21:18)
[2024-01-24] MEDS: MIDODRINE HCL 10 MG TABLET PO ×3 (08:10→16:39)
[2024-01-24] MEDS: ATORVASTATIN 40 MG TABLET PO (08:10)
[2024-01-24] MEDS: metOLazone 2.5 MG TABLET PO (08:10)
[2024-01-24] MEDS: ASPIRIN 81 MG ENTERIC TABLET PO (08:10)
--- NOTE | 2024-01-24 08:16 | ECG_ITS ---
SEE SCANNED COPY FOR CONFIRMED REPORT MTDD
[2024-01-24] MEDS: METOPROLOL TARTRATE INJ 5 MG/5 ML VIAL IV PUSH (08:27)
[2024-01-24] MEDS: FUROSEMIDE INJ 40 MG/4 ML VIAL 80 MG IV PUSH (08:27)
--- NOTE | 2024-01-24 09:01 | PC.NURSE ---
[facility] transfer center called at 0901am. Updates vital signs and drip rates given. no bed available at this time. Will call with bed opens up.
--- NOTE | 2024-01-24 09:32 | WPDINTPN ---
Progress Note: A&P Assessment and Plan (1) CHF (congestive heart failure): Code(s): I50.9 - Heart failure, unspecified Status: Acute Assessment and Plan: Echo Summary ? 1. Limited study with limited views.? Definity contrast administered. ? 2. Left ventricular chamber dimension is mildly enlarged. ? 3. Left ventricular systolic function is severely reduced, estimated at 25-30% with dyskinetic apex.? 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 ? 4. There is no increased left ventricular wall thickness. ? 5. Left ventricular septal wall motion is abnormal with septal motion related to bundle branch block. ? 6. There is moderate tricuspid valve regurgitation. ? 7. Severe pulmonary hypertension, estimated pulmonary arterial systolic pressure is 67 mmHg. ? 8. Large left pleural effusion. Holding heart failure medication due to hypotension 4/5 dobutamine infusion discontinued due to tachycardia. Continue Levophed. It appears to be dependent and unable to wean any of those down at this time. Continue Lasix and metolazone Cardiology following and discussed with Dr. Baires who recommended transfer to [facility] for advanced heart failure management where patient was admit 2 months ago. Patient in the past has refused LifeVest and then refused AICD but now when discussed prognosis he would like to resume his treatment at [facility] heart failure and is agreeable to transfer if bed is available. Patient has been accepted at [facility] and is awaiting for transfer once a bed is available Management of LV thrombus as below (2) LV (left ventricular) mural thrombus: Code(s): I51.3 - Intracardiac thrombosis, not elsewhere classified Status: Acute Assessment and Plan: Echocardiogram shows probable laminated thrombus at the LV apex. Will discuss with Cardiology and see if patient needs LALY. I spoke to patient and updated him with the report results and discussed pros and cons of starting anticoagulation. Patient denies any hematochezia melena or hematemesis. I explained him the risks of being on anticoagulation with increase risk of bleeding both spontaneous and traumatic which could be life-threatening. Patient understood and verbalized understanding of benefits and risks and agreed to proceed with anticoagulation at this time. Patient has been started on therapeutic dose of Lovenox which was temporarily held due to paracentesis and now oozing from the side. Will restart from tonight's dose (3) HUA (acute kidney injury): Code(s): N17.9 - Acute kidney failure, unspecified Status: Acute Assessment and Plan: Presented with 1.7 which could be secondary to hypotension or cardiac output Normal CK level and urine electrolytes suggested prerenal Patient received 3 L of fluids in the ER and and received IV fluids infusion overnight Patient likely third-spacing and now off of IV fluids Creatinine improved to 1.3 and urine output improving Levophed drip to be continued Continue Lasix and metolazone Monitor urine output electrolytes and creatinine (4) Anasarca: Code(s): R60.1 - Generalized edema Status: Acute Assessment and Plan: Anasarca secondary to congestive heart failure 4/2 Status post paracentesis and 2.3 L fluid was removed 4/2 Status post right-sided thoracentesis and 1 L fluid was removed 4/3 status post left-sided thoracentesis and 1 L fluid was removed Patient started on Lasix but aggressive diuresis is going to be difficult due to shock and acute kidney injury 4/5 repeat paracentesis with 1750 mL fluid removed (5) Shock: Code(s): R57.9 - Shock, unspecified Status: Acute Assessment and Plan: Patient shock appears multifactorial with possible sepsis and cardiogenic Hold further fluids Continue Levophed (6) Sepsis: Code(s): A41.9 - Sepsis, unspecified organism Assessment and Plan: Patient met criteria for sepsis with elevated lactic acid
[2024-01-24] MEDS: INSULIN GLARGINE (*BKC) 100 UNITS/ML 10 UNITS SUB-Q (09:43)
[2024-01-24] MEDS: NOREPINEPHRINE 8 MG/D5W 250 ML 8 MG/250 ML BAG 11.25 MG IV CONT (09:44)
--- NOTE | 2024-01-24 09:45 | PM.PNCARD ---
Progress Note: A&P Assessment and Plan (1) Acute on chronic HFrEF (heart failure with reduced ejection fraction): Code(s): I50.23 - Acute on chronic systolic (congestive) heart failure Status: Acute Assessment and Plan: Patient presented yet again with decompensated heart failure with reduced ejection fraction which is his 3rd admission in the past 3-4 months. Patient presented with diffuse anasarca, hypotension, evidence of hypoperfusion fatigue, acute kidney injury. Initially received aggressive IV fluid resuscitation in the emergency department without significant improvement. Patient is high risk for recurrent decompensations, sudden cardiac secondary to ventricular tachycardia and ventricular fibrillation. It is critically important he was compliant with dietary recommendations, follow-up, and his medications. It is concerning at his age that he is dependent on his parents to manage his medications and dietary intake. At this point, patient is critically ill in cardiogenic shock on pressor. Continue with IV Lasix as tolerated by hemodynamics. Transfer to [facility] has been arranged as he needs a higher level of care than what we can provide here at [facility]. Currently awaiting transfer. (2) Shock: Code(s): R57.9 - Shock, unspecified Status: Acute Assessment and Plan: Most likely cardiogenic in setting of decompensated acute on chronic heart failure with reduced ejection fraction. Continue with Levophed for pressor support. Dobutamine discontinued 4/5 as patient now in atrial flutter with RVR. (3) Atrial flutter with rapid ventricular response: Code(s): I48.92 - Unspecified atrial flutter Status: Acute Assessment and Plan: Now in atrial flutter with RVR. Agree with stopping Dobutamine drip. Give Amiodarone bolus and start Amiodarone drip per protocol. Therapeutic Lovenox has been on hold as patient is bleeding from paracentesis site. (4) Coronary artery disease: Qualifiers: Coronary Disease-Associated Artery/Lesion type: [place] artery [place] vs. transplanted heart: [place] heart Associated angina: without angina Qualified Code(s): I25.10 - Atherosclerotic heart disease of [place] coronary artery without angina pectoris Code(s): I25.10 - Atherosclerotic heart disease of [place] coronary artery without angina pectoris Status: Acute Assessment and Plan: Most recent intervention October 2023 with 2 stents to LAD Impella assisted CT of circumflex and RPL branch with possible stage intervention to RCA occlusion. Continue Aspirin 81 mg daily and Clopidogrel 75 mg daily. Continue Atorvastatin 40 mg daily. (5) HUA (acute kidney injury): Code(s): N17.9 - Acute kidney failure, unspecified Status: Acute Assessment and Plan: Acute on chronic kidney injury secondary to hypoperfusion decompensated heart failure. Monitor closely. Follow BMP. Monitor electrolytes very closely as he has has had issues with hyperkalemia in the past. (6) Sepsis: Qualifiers: Sepsis type: sepsis due to unspecified organism Sepsis acute organ dysfunction status: with acute organ dysfunction Severe sepsis acute organ dysfunction type: unspecified Code(s): A41.9 - Sepsis, unspecified organism Status: Acute Assessment and Plan: As above, admission he met criteria for sepsis. Defer to Critical Care in this regard. (7) Pulmonary hypertension: Code(s): I27.20 - Pulmonary hypertension, unspecified Status: Acute Assessment and Plan: History of moderate pulmonary hypertension with evidence for pre and post capillary. Recent right heart catheterization with hemodynamics as above. (8) Type 2 diabetes mellitus: Code(s): E11.9 - Type 2 diabetes mellitus without complications Status: Acute Assessment and Plan: Management per primary service. (9) At risk for sudden cardiac :
[2024-01-24] MEDS: AMIODARONE 150 MG/D5W 100 ML 150 MG/100 ML BAG 600 MG IV CONT (09:53)
[2024-01-24] MEDS: AMIODARONE 360 MG/D5W 200 ML 360 MG/200 ML BAG 33.33 MG IV CONT (09:54)
[2024-01-24 11:58] LABS: Glucose Point of Care 326 mg/dl (65-105)
[2024-01-24] MEDS: INSULIN ASPART (*BKC) 100 UNITS/ML SUB-Q ×2 (12:08→16:38)
[2024-01-24 12:56] LABS: LDH Pleural Fluid 184 U/L; Total Protein Pleural Fluid 3.2 g/dL
[2024-01-24] MEDS: ALBUMIN HUMAN 5% 250 ML IV CONT (13:26)
[2024-01-24] MEDS: AMIODARONE 360 MG/D5W 200 ML 360 MG/200 ML BAG 16.67 MG IV CONT (15:42)
--- NOTE | 2024-01-24 16:21 | PM.IMPN ---
Progress Note: A&P Assessment and Plan (1) Shock: Code(s): R57.9 - Shock, unspecified Status: Acute (2) Acute kidney injury: Code(s): N17.9 - Acute kidney failure, unspecified Status: Acute (3) Heart failure with reduced ejection fraction: Code(s): I50.20 - Unspecified systolic (congestive) heart failure Status: Acute (4) Sepsis: Qualifiers: Sepsis type: sepsis due to unspecified organism Sepsis acute organ dysfunction status: with acute organ dysfunction Severe sepsis acute organ dysfunction type: unspecified Code(s): A41.9 - Sepsis, unspecified organism Status: Acute (5) Ascites: Code(s): R18.8 - Other ascites Status: Acute (6) Anasarca: Code(s): R60.1 - Generalized edema Status: Acute (7) Pleural effusion: Code(s): J90 - Pleural effusion, not elsewhere classified Status: Acute (8) Type 2 diabetes mellitus: Code(s): E11.9 - Type 2 diabetes mellitus without complications Status: Acute Plan The patient presented to the emergency department for evaluation of weakness, shortness of breath, and swelling. He was hypotensive on arrival remains though despite aggressive IV fluid rehydration. May be due to cardiogenic shock, underlying sepsis, or combination of both. He does meet sepsis criteria with tachycardia, leukocytosis, acute kidney injury, and elevated lactic acid level. CRP is elevated but procalcitonin is only 0.4. Possible source of infection could be cellulitis, SBP, or pneumonia but none of these are too convincing. Urinalysis is pretty unremarkable. He was started on empiric cefepime and vancomycin. He was pancultured. Presented with HUA with creatinine of 1.7 CK was normal. Also had anasarca status post paracentesis with 2.3 L removed 01/20/24 and 1 L status post right sided thoracentesis and left-sided thoracentesis. On diuresis however aggressive diuresis difficult to shock and HUA. To be to main infusion discontinued 01/23/2024 due to tachycardia and atrial flutter with RVR. For AFib with RVR amiodarone infusion started Managed under ICU care. Echocardiogram showed probable laminated thrombus at the LV apex. Cardiology consulted. EF 25-30% with dyskinetic FX. Started on therapeutic Lovenox. Type 2 diabetes Coronary artery disease on aspirin Plavix and statin Plan for transfer to [facility] for heart failure management. He has been accepted at [facility] Subjective Date/time seen: 01/24/24 16:21 Interval history: Overnight events noted. He has been accepted at [facility] awaiting bed placement. Underwent paracentesis. Dobutamine stopped due to tachycardia Review of Systems Review of Systems: All systems reviewed & are unremarkable except as noted in HPI and below (HPI) Exam Narrative: General: Pt is alert awake and in NAD Lungs/Chest: Trachea central breath sounds are decreased and absent at left bases, no wheezing Cardiac: Tachycardic, Normal S1 S2. No murmurs Circulation: Pedal pulses are weak but dopplerable and symmetrical. Abdomen: Decreased bowel sounds.. Distended abdomen with fluid thrill Extremities: No clubbing, cyanosis bilateral pitting edema present but improved as compared to before, feet are cold : Lira in place Neurologic: Follows commands. Moves all 4 extremities PERRL AO x3 Skin: Both feet are erythematous but redness has decreased as compared to presentation Objective Data Vital Signs Vital Signs: Vital Signs - 24 hr 01/23/24 17:05 01/23/24 18:56 01/23/24 18:00 Temperature Pulse Rate 123 H 124 H 125 H Respiratory Rate Blood Pressure 85/66 L 90/76 L Pulse Oximetry Oxygen Delivery Oxygen Flow Rate 01/23/24 18:00 01/23/24 19:35 01/23/24 19:49 Temperature 97.5 F L Pulse Rate 125 H 125 H 126 H Respiratory Rate 40 H Blood Pressure 99/83 L 76/60 L 88/72 L Pulse Oximetry 98 Oxygen Delivery Oxygen Flow Rate 01/23/24 20:
[2024-01-24 16:56] LABS: Glucose Point of Care 231 mg/dl (65-105)
[2024-01-24] MEDS: NOREPINEPHRINE 8 MG/D5W 250 ML 8 MG/250 ML BAG 45 MG IV CONT (17:39)
[2024-01-24] MEDS: ENOXAPARIN 80 MG/0.8 ML SYRINGE 70 MG SUB-Q (21:04)
[2024-01-24 21:23] LABS: Glucose Point of Care 136 mg/dl (65-105)
[2024-01-24] MEDS: NOREPINEPHRINE 8 MG/D5W 250 ML 8 MG/250 ML BAG 50.63 MG IV CONT (23:13)
[2024-01-25] VITALS (62 sets, daily range): BP systolic 54–142; BP diastolic 34–108; PULSE 54–110; RESP 18–38; TEMP 35.8–37.2; O2SAT 75–100
--- NOTE | 2024-01-25 02:00 | PC.NURSE ---
0120 Entered patient's room to adjust patient's blood pressure cuff and retake blood pressure. Found patient with oxygen tubing out of his nose. Oxygen reapplied. Patient's blood pressure low and Levophed adjusted per protocol. Patient drowsy but able to answer all orientation questions appropriately. Patient states that he feels fine and does not feel any different at this time. Patient's pedal pulses weaker than prior assessments, unable to palpate them. Right pedal pulse was found with doppler. Unable to find left pedal pulse with doppler, was able to doppler left posterior tibial pulse. Dr. Naik called and informed of all changes with patient and new orders received.
[2024-01-25] MEDS: SODIUM CHLORIDE 0.9% IV 500 ML IV CONT (02:07)
[2024-01-25] MEDS: VASOPRESSIN INJ 100 UNITS in DEXTROSE 5% 95 ML IV CONT (02:15)
[2024-01-25] MEDS: ETOMIDATE 20 MG/10 ML AMPUL 30 MG IV PUSH (02:17)
[2024-01-25] MEDS: ROCURONIUM BROMIDE 50 MG/5 ML VIAL 80 MG IV PUSH (02:18)
[2024-01-25] MEDS: ATROPINE SULFATE 1 MG/10 ML SYRINGE IV PUSH (02:19)
[2024-01-25] MEDS: SODIUM BICARBONATE 8.4% 50 MEQ/50 ML SYRINGE IV PUSH (02:20)
[2024-01-25] MEDS: EPINEPHrine INJ 1 MG in DEXTROSE 5% IN WATER 250 ML 150.6 MG IV CONT (02:21)
[2024-01-25] MEDS: ATROPINE SULFATE 1 MG/ML VIAL IV PUSH (02:24)
[2024-01-25] MEDS: CALCIUM CHLORIDE 1,000 MG/10 ML SYRINGE 1000 MG IV PUSH (02:26)
[2024-01-25] MEDS: SODIUM BICARBONATE 8.4% 50 MEQ/50 ML SYRINGE 100 MEQ IV PUSH (02:27)
[2024-01-25 02:45] LABS: Alveolar/Arterial O2 Gradient 593.9 mmHg; Base Excess ABG -4.7 mEq/l (+/-2.0); Fractional Inspired Oxygen 100 %; HCO3 ABG 27.1 mEq/l (22.0-26.0); Oxygen Content ABG 6.4 %vol (16.0-22.0); PO2 FiO2 Ratio Arterial Blood 0.29 %; Total Hemoglobin 13.3 g/dL (12.0-18.0)
[2024-01-25] MEDS: SODIUM CHLORIDE 0.9% IV 1,000 ML 999 ML IV CONT (02:45)
--- NOTE | 2024-01-25 02:45 | PC.NURSE ---
0156 Patient c/o not feeling well. Asked patient if he was nauseated or lightheaded. Patient denied both. Patient was unable to state why he was not feeling well. Patient's heart rate and blood pressure began to decrease. 0215 Dr. Thomas at bedside to assess patient. Medications given as ordered per Dr. Thomas. Patient intubated and placed on ventilator.
[2024-01-25 02:48] LABS: Oxygen Saturation ABG 35.9 % (95.0-100.0); Oxyhemoglobin 33.9 % THb (90.0-100.0); PCO2 ABG 89.7 mmHg (35.0-45.0); PO2 ABG 29.4 mmHg (80.0-100.0); Site Drawn LEFT FEMORAL; pH ABG 7.098 (7.350-7.450)
[2024-01-25 02:49] LABS: Device VENTILATOR; Modified Allen's Test Pass
[2024-01-25 02:50] LABS: Arterial Blood Gas PEEP 5 cmH2O; Arterial Blood Gas Tidal Volume 400 ml; Arterial Blood Gas Vent Mode CMV; Arterial Blood Gas Ventilator rate 18 /MIN
[2024-01-25 02:57] LABS: Basophils Absolute Auto 0.1 K/mm3 (0.0-0.1); Basophils Percent Auto 0.3 % (0.2-1.2); Eosinophils Absolute Auto 0.1 K/mm3 (0-0.3); Eosinophils Percent Auto 0.8 % (0-4.4); Hematocrit 44.6 % (42.0-52.0); Hemoglobin 13.5 g/dL (14.0-18.0); Immature Granulocyte Absolute 0.21 K/mm3 (0.00-0.031); Immature Granulocyte Percent A 1.4 % (0-0.5); Lymphocytes Absolute Auto 2.59 K/mm3 (0.9-3.2); Lymphocytes Percent Auto 16.7 % (18.3-44.2); Mean Corpuscular HGB Conc 30.3 g/dl (32-36); Mean Corpuscular Hemoglobin 28.1 pg (26-34); Mean Corpuscular Volume 92.9 fl (80-100); Mean Platelet Volume 10.5 fl (7.4-10.4); Monocytes Absolute Auto 2.3 K/mm3 (0.1-0.6); Monocytes Percent Auto 14.5 % (2.6-8.5); Neutrophils Absolute Auto 10.3 K/mm3 (1.3-6.7); Neutrophils Percent Auto 66.3 % (45.5-73.1); Nucleated Red Blood Cells Perc 0.1 % (0.0-0.2); Platelet Count Result 310 k/mm3 (150-375); Red Cell Distribution Width 17.4 % (11.5-14.5); White Blood Count 15.5 K/mm3 (4.5-10.0)
--- NOTE | 2024-01-25 03:09 | PDCODEBLUE ---
Code Blue Note Code Blue Note Time Arrived at Code Blue: 02:30 Initial Rhythm on Arrival: sinus bradycardia Airway Management: Initiated bagging pt on arrival Chest Compressions: No compressions given Result of Code Blue: stabilized Cardiac Rhythm Post Code: Sinus tachycardia Code Blue Summary: no chest compressions given, no loss of pulse however patient became very bradycardic requiring several atropines and epinephrines also severely hypotensive. able to achieve a stable blood pressure added 4th vasopressor
[2024-01-25 03:13] LABS: INR 1.5; Prothrombin Time 18.7 Seconds (11.1-14.7)
[2024-01-25 03:14] LABS: Partial Thromboplastin Time 27.8 Seconds (22.3-36.8)
--- NOTE | 2024-01-25 03:14 | WPDPROCEDUR ---
Procedures Intubation Intubation Date: 01/25/24 Intubation Time: 02:30 Sedative: etomidate Mg given: 30 Paralytic: rocuronium Mg given: 80 Laryngoscope: fiber optic video scope Assist device used: fiber optic device ET tube size: 8 Tube secured depth (cm): 24 Tube secured location: lips Tube placement confirmation: visualized tube passing through cords, equal breath sounds bilaterally, no breath sounds over epigastrium and confirmation by capnometry Patient tolerated procedure: no complications Intubation complications: none and hypotension
[2024-01-25 03:17] LABS: Lactic Acid Reflex 5.7 mmol/L (0.7-2.0)
--- NOTE | 2024-01-25 03:17 | PC.NURSE ---
Cullen Avinay Aminata notified of change in condition; unable to come up at this time. Gil's phone number is [phone].
[2024-01-25] MEDS: HYDROCORTISONE SODIUM SUCCINATE 100 MG/2 ML VIAL IV PUSH ×2 (03:59→13:06)
[2024-01-25 04:00] LABS: Alanine Aminotransferase 276 U/L (6-50); Albumin Level 2.9 g/dL (3.5-5.1); Alkaline Phosphatase 153 U/L (38-126); Anion Gap 8 mmol/L (4-12); Blood Urea Nitrogen 36 mg/dL (9-20); Calcium 8.8 mg/dL (8.4-10.2); Carbon Dioxide 28 mmol/L (22-30); Chloride 91 mmol/L (98-107); Estimated CRCL calculation 39 ml/min; Estimated Glomerular Filt Rate 47; Glucose 51 mg/dL (65-110); Magnesium 2.3 mg/dL (1.6-2.3); Phosphorus 4.9 mg/dL (2.5-4.5); Potassium 3.9 mmol/L (3.4-5.0); Sodium 127 mmol/L (137-145)
[2024-01-25] MEDS: EPINEPHrine INJ 4 MG in DEXTROSE 5% IN WATER 250 ML 34.29 MG IV CONT (04:00)
[2024-01-25] MEDS: DEXTROSE 50% 25 GM/50 ML SYRINGE IV PUSH ×2 (04:01→04:33)
--- NOTE | 2024-01-25 04:05 | PC.NURSE ---
Carline at [facility] transfer center updated per change in patient condition; possibility of bed assignment soon.
[2024-01-25] MEDS: NOREPINEPHRINE 8 MG/D5W 250 ML 8 MG/250 ML BAG 56.25 MG IV CONT (04:08)
[2024-01-25 04:12] LABS: Aspartate Amino Transferase 863 U/L (17-59)
[2024-01-25 04:26] LABS: Alveolar/Arterial O2 Gradient 465.3 mmHg; Base Excess ABG -0.7 mEq/l (+/-2.0); Fractional Inspired Oxygen 100 %; HCO3 ABG 23.2 mEq/l (22.0-26.0); Oxygen Content ABG 18.5 %vol (16.0-22.0); Oxygen Saturation ABG 99.5 % (95.0-100.0); Oxyhemoglobin 98.7 % THb (90.0-100.0); PCO2 ABG 35.9 mmHg (35.0-45.0); PO2 ABG 211.8 mmHg (80.0-100.0); PO2 FiO2 Ratio Arterial Blood 2.12 %; pH ABG 7.429 (7.350-7.450)
[2024-01-25 04:27] LABS: Device VENTILATOR; Modified Allen's Test Pass; Site Drawn RIGHT RADIAL
[2024-01-25 04:29] LABS: Arterial Blood Gas PEEP 8 cmH2O; Arterial Blood Gas Tidal Volume 450 ml; Arterial Blood Gas Vent Mode CMV; Arterial Blood Gas Ventilator rate 20 /MIN
[2024-01-25 05:19] LABS: Glucose Point of Care 71 mg/dl (65-105)
[2024-01-25 05:19] LABS: Glucose Point of Care 157 mg/dl (65-105)
[2024-01-25] MEDS: FENTANYL 2,500MCG/NS250ML(*CRX 2,500 MCG/250 ML BAG IV CONT (05:50)
[2024-01-25] MEDS: MIDAZOLAM 100MG/NS 100ML(*CRX) 100 MG/100 ML BAG IV CONT (05:54)
[2024-01-25 05:55] LABS: Reflex Lactic Acid Yes or No Add Lactic
[2024-01-25] MEDS: CENTRAL LINE FLUSH 10 ML IV PUSH ×3 (05:55→21:00)
[2024-01-25 06:59] LABS: Lactic Acid 3.5 mmol/L (0.7-2.0)
[2024-01-25 07:17] LABS: Glucose Point of Care 153 mg/dl (65-105)
--- NOTE | 2024-01-25 08:01 | ECG_ITS ---
Measurements Intervals [place] Rate: 88 P: 192 [place]: 207 QRS: 244 QRSD: 137 T: 69 QT: 431 QTc: 476 Interpretive Statements SINUS RHYTHM INDETERMINATE AXIS RIGHT BUNDLE BRANCH BLOCK [120+ ms QRS DURATION, UPRIGHT V1, 40+ MS S IN I/aVL/V4/V5/V6] ANTEROSEPTAL MYOCARDIAL INFARCTION ABNORMAL ECG SEE SCANNED COPY FOR SIGNATURE MTDD
--- NOTE | 2024-01-25 08:46 | WPDINTPN ---
Progress Note: A&P Assessment and Plan (1) CHF (congestive heart failure): Code(s): I50.9 - Heart failure, unspecified Status: Acute Assessment and Plan: Echo Summary ? 1. Limited study with limited views.? Definity contrast administered. ? 2. Left ventricular chamber dimension is mildly enlarged. ? 3. Left ventricular systolic function is severely reduced, estimated at 25-30% with dyskinetic apex.? 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 ? 4. There is no increased left ventricular wall thickness. ? 5. Left ventricular septal wall motion is abnormal with septal motion related to bundle branch block. ? 6. There is moderate tricuspid valve regurgitation. ? 7. Severe pulmonary hypertension, estimated pulmonary arterial systolic pressure is 67 mmHg. ? 8. Large left pleural effusion. Holding?heart failure medication due to hypotension / dobutamine infusion discontinued due to tachycardia. Continue Levophed.? It appears to be dependent and unable to wean any of those down at this time. Continue Lasix and metolazone Cardiology following and discussed with Dr. Baires who recommended transfer to [facility] for advanced heart failure management where patient was admit 2 months ago.? Patient in the past has refused LifeVest and then refused AICD but now when discussed prognosis he would like to resume his treatment at [facility] heart failure and is agreeable to transfer if bed is available. Patient has been accepted at [facility] and is awaiting for transfer once a bed is available 01/24 due to overnight hemodynamic deterioration patient is now on 3 vasopressors. Hold diuretics at this time. Dobutamine discontinued due to A flutter and RVR Management of LV thrombus as below (2) Acute respiratory failure: Code(s): J96.00 - Acute respiratory failure, unspecified whether with hypoxia or hypercapnia Status: Acute Assessment and Plan: 01/24 overnight patient respiratory status deteriorated and he was intubated Chest x-ray ABG and ventilator settings reviewed Wean FiO2 (3) LV (left ventricular) mural thrombus: Code(s): I51.3 - Intracardiac thrombosis, not elsewhere classified Status: Acute Assessment and Plan: Echocardiogram shows probable laminated thrombus at the LV apex.? Will discuss with Cardiology and see if patient needs LALY. I spoke to patient and updated him with the report results and discussed pros and cons of starting anticoagulation.? Patient denies any hematochezia melena or hematemesis.? I explained him the risks of being on anticoagulation with increase risk of bleeding both spontaneous and traumatic which could be life-threatening.? Patient understood and verbalized understanding of benefits and risks and agreed to proceed with anticoagulation at this time.? Patient has been started on therapeutic dose of Lovenox which was temporarily held due to paracentesis and now oozing from the side.? Now patient back on therapeutic dose of Lovenox (4) HUA (acute kidney injury): Code(s): N17.9 - Acute kidney failure, unspecified Status: Acute Assessment and Plan: Presented with 1.7 which could be secondary to hypotension or cardiac output Normal CK level and urine electrolytes suggested prerenal Patient received 3 L of fluids in the ER and and received IV fluids infusion overnight Patient likely third-spacing and now off of IV fluids Creatinine improved to 1.3 but now increased 1.5 this more Dobutamine discontinue to a flutter. Continue other vasopressors Hold diuretics and patient was given IV fluid bolus overnight Monitor urine output electrolytes and creatinine (5) Anasarca: Code(s): R60.1 - Generalized edema Status: Acute Assessment and Plan: Anasarca secondary to congestive heart failure 4/2 Status post paracentesis and 2.3 L fluid was removed 4/2 Status post right-sided thoracentesis and 1 L fluid was removed 4/3 status post left-sided thoracentesis
[2024-01-25] MEDS: ENOXAPARIN 80 MG/0.8 ML SYRINGE 70 MG SUB-Q (09:21)
[2024-01-25] MEDS: CEFEPIME 1 GM/NS 50 ML 1 GM/50 ML BAG IVPB (09:22)
[2024-01-25] MEDS: CLOPIDOGREL BISULFATE 75 MG TABLET PO (09:24)
[2024-01-25] MEDS: ASPIRIN 81 MG ENTERIC TABLET PO (09:24)
--- NOTE | 2024-01-25 09:26 | PC.NURSE ---
Spoke with [facility] transfer center at 0920, updated on vital signs/IV medications, and any critical labs. [phone]
[2024-01-25] MEDS: NOREPINEPHRINE 8 MG/D5W 250 ML 8 MG/250 ML BAG 30 MG IV CONT (09:27)
[2024-01-25] MEDS: VANCOMYCIN 1,250 MG/NS 250 ML 1,250 MG/250 ML BAG 166.67 MG IVPB (10:09)
[2024-01-25] MEDS: PANTOPRAZOLE SODIUM IV 40 MG VIAL IV PUSH (10:19)
[2024-01-25] MEDS: MINERAL OIL/WHITE PETROLATUM OINTMENT 1 APPLIC EACH EYE (10:19)
[2024-01-25 12:54] LABS: Glucose Point of Care 136 mg/dl (65-105)
[2024-01-25] MEDS: ALBUMIN HUMAN 25% 25 GM/100 ML 100 ML IVPB ×2 (13:06→18:42)
--- NOTE | 2024-01-25 13:42 | P.PNCROSS_ITS ---
Event Note Event Note Event Note: Spoke to and discuss case with heart failure attending Dr. Tompkins at [facility]. He does not feel that patient is a candidate for any advanced heart failure therapies at this time and does not feel there is any benefit to transferring patient to [facility]. Due to this they will not accept the transfer at this time. I updated patient's family including his mother sister father and son off my discussion with [facility] transfer team. They are evaluating goals of care discuss ed among themselves. They have decided to make patient DNR at this time additional medical therapy.
--- NOTE | 2024-01-25 13:42 | PM.EVENT ---
Event Note Event Note Event Note: Spoke to and discuss case with heart failure attending Dr. Tompkins at [facility]. He does not feel that patient is a candidate for any advanced heart failure therapies at this time and does not feel there is any benefit to transferring patient to [facility]. Due to this they will not accept the transfer at this time. I updated patient's family including his mother sister father and son off my discussion with [facility] transfer team. They are evaluating goals of care discussed among themselves. They have decided to make patient DNR at this time additional medical therapy.
[2024-01-25] MEDS: NOREPINEPHRINE 8 MG/D5W 250 ML 8 MG/250 ML BAG 26 MG IV CONT ×2 (14:04→19:37)
[2024-01-25 16:11] LABS: Glucose Point of Care 154 mg/dl (65-105)
[2024-01-25 18:14] LABS: Appearance Urine Turbid (Clear); Bacteria Urine Rare /hpf; Bilirubin Urine Negative (Negative); Blood Urine 3+ (Negative); Color Urine Dark Yellow (Yellow); Glucose Urine UA Negative (Negative); Granular Casts Urine Present /lpf; Ketones Urine Trace mg/dL (Negative); Leukocyte Esterase Ur 3+ LEU/UL (Negative); Mucus Urine Present /lpf; Need Manual Microscopic Reviewed; Nitrate Urine Negative (Negative); Non Pathogenic Casts >20; Protein Urine 2+ mg/dL (Negative); RBC Urine >100 /hpf (0-2); Specific Grav Ur 1.015 (1.001-1.035); Squamous Epithelial Cell Urine Occasional /hpf (Few); WBC Urine 51-100 /hpf (0-3)
[2024-01-25 18:16] LABS: Add Urine Microscopic? YES
[2024-01-25 19:25] LABS: Glucose Point of Care 181 mg/dl (65-105)
[2024-01-25 20:49] LABS: Glucose Pleural Fluid 166 mg/dL
[2024-01-25] MEDS: LORazepam INJ (*CRX) 2 MG/ML VIAL IV PUSH (20:56)
[2024-01-25] MEDS: MORPHINE SULFATE INJ (*CRX) 10 MG/ML AMP 5 MG IV PUSH (20:57)
[2024-01-25] MEDS: MORPHINE SULFATE (*CRX) 4 MG/ML INJ IV PUSH (21:48)
--- NOTE | 2024-01-26 08:57 | P.DN_ITS ---
Discharge Summary Date and Time Date of : 01/25/24 Time of : 21:50 Provider Pronounced By: Lorene Drew RN and Tara Reeves RN Probable Cause of Probable Cause of : Cardiogenic shock Congestive heart failure Acute respiratory failure Sepsis Summary Hospital Course: The patient presented to the emergency department for evaluation of weakness, shortness of breath, and swelling.? He was hypotensive on arrival remains though despite aggressive IV fluid rehydration. May be due to cardiogenic shock, underlying sepsis, or combination of both. He did meet sepsis criteria with tachycardia, leukocytosis, acute kidney injury, and elevated lactic acid level. CRP is elevated but procalcitonin is only 0.4. Possible source of infection could be cellulitis, SBP, or pneumonia but none of these are too convincing. Urinalysis is pretty unremarkable.? He was started on empiric broad-spectrum antibiotics with cefepime and vancomycin.? He was pancultured.? He Also had HUA with creatinine of 1.7 CK was normal.? Also had anasarca status post paracentesis with 2.3 L removed 01/20/24 and 1 L status post right sided thoracentesis and left-sided thoracentesis.? On diuresis however aggressive diuresis difficult due to shock and HUA.? He also subsequently developed AFib with RVR for which amiodarone infusion was started. 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 Cardiology consulted.? EF 25-30% with dyskinetic FX.? Started on therapeutic Lovenox. He had underlying type 2 diabetes and coronary artery disease. He was planned to be transferred [place] for heart failure management and was awaiting bed placement. On 01/25/2024 patient coded and required additional vasopressor. Due to continued deterioration goals of care discussion was made and he was switched to do not resuscitate. Subsequen tly family will do care and was palliatively extubated. He subsequently . Necessary arrangements were made. Additional Data Confirmation of as documented by pronouncing clinician: Pupillary Reflex, Palpable Pulses, Response to Stimuli, Heart Tones and Breath Sounds Name of Provider Notified: Steffanie LIEBERMAN Time Provider Notified: 22:00 Provider Requests Autopsy: No Family Requests Autopsy: No Credit Control Assistant Notified: Yes Date [facility] Notified of : 01/25/24 Time [facility] Notified of : 22:44
== END 2024-01-25 21:50 | disposition expired | DRG 871 ==
LOC: ANHED 09:50 → ANHICU 14:14
PROVIDERS: Internal Medicine; Admitting Provider Hospitalist; Emergency Provider Emergency Medicine; PCP Physician Assistant; Visit Provider Internal Medicine
DX: A41.9 Sepsis, unspecified organism (principal); I50.23 Acute on chronic systolic (congestive) heart failure; R65.21 Severe sepsis with septic shock; N17.9 Acute kidney failure, unspecified; J90 Pleural effusion, not elsewhere classified; R18.8 Other ascites; I48.92 Unspecified atrial flutter; R57.0 Cardiogenic shock; E11.9 Type 2 diabetes mellitus without complications; E78.5 Hyperlipidemia, unspecified; I27.20 Pulmonary hypertension, unspecified; I25.10 Atherosclerotic heart disease of native coronary artery without angina pectoris; I95.9 Hypotension, unspecified; I25.5 Ischemic cardiomyopathy; I11.0 Hypertensive heart disease with heart failure; I51.3 Intracardiac thrombosis, not elsewhere classified; Z66 Do not resuscitate; Z79.82 Long term (current) use of aspirin; Z95.5 Presence of coronary angioplasty implant and graft; Z79.02 Long term (current) use of antithrombotics/antiplatelets; Z87.891 Personal history of nicotine dependence
CPT/HCPCS: 31500; 32555; 36415; 36556; 36600; 49083; 71045; 71046; 71250; 80048; 80053; 81001; 82042; 82550; 82570; 82805; 82945; 82947; 82948; 83036; 83605; 83615; 83735; 83880; 84100; 84145; 84155; 84157; 84300; 84484; 85025; 85610; 85730; 86140; 87040; 87070; 87075; 87086; 87205; 87641; 89051; 93005; 93308; 94002; 96361; 96374; 99291; A9270; C1751; C8924; C9113; J0171; J0282; J0461; J0692; J1250; J1650; J1720; J1815; J1940; J1956; J2060; J2250; J2270; J3010; J3370; J7030; J7040; J7060; P9041; P9047; Q9957